=== PATIENT | male | born 1940 | race Caucasian/White ===

== ENCOUNTER 2023-05-25 10:58 | Outpatient (OUT) | payer MEDICARE, BC, SELFPAY ==
[2023-05-25 11:29] LABS: Basophils Percent Auto 0.3 % (0.2-2.0); Eosinophils Absolute Auto 0.1 10^3/uL (0.0-0.7); Eosinophils Percent Auto 1.2 % (0.9-7.0); Hematocrit 40.2 % (42.0-54.0); Hemoglobin 13.9 g/dL (14.0-18.0); Immature Granulocytes Abs Auto 0.02 10^3/uL (0.00-0.03); Immature Granulocytes Pct Auto 0.3 % (0.0-0.5); Lymphocytes Absolute Auto 0.8 10^3/uL (1.2-3.8); Lymphocytes Percent Auto 12.2 % (20.5-60.0); Mean Corpuscular HGB Conc 34.6 g/dL (29.9-35.2); Mean Corpuscular Hemoglobin 34.8 pg (25.9-34.0); Mean Corpuscular Volume 100.8 fL (80.0-94.0); Mean Platelet Volume 9.8 fL (9.5-13.5); Monocytes Absolute Auto 0.6 10^3/uL (0.3-0.8); Neutrophils Absolute Auto 4.9 10^3/uL (1.4-6.5); Platelet Count 207 10^3/uL (150-450); Red Blood Count 3.99 10^6/uL (4.70-6.10); Red Cell Distribution Width 12.6 % (11.0-15.0); White Blood Count 6.4 10^3/uL (4.0-11.0)
[2023-05-25 12:24] LABS: Alanine Aminotransferase 28 U/L (16-63); Albumin Globulin Ratio 1.1; Albumin Level 3.7 g/dL (3.4-5.0); Alkaline Phosphatase 66 U/L (46-116); Anion Gap 11.9; Aspartate Amino Transferase 16 U/L (15-37); BUN Creatinine Ratio 11.2; Calcium 8.7 mg/dL (8.5-10.1); Carbon Dioxide 26.3 mmol/L (21.0-32.0); Chloride 106 mmol/L (98-107); Estimated GFR (African America >60 (>=60); Estimated GFR (Non-African Ame 56 (>=60); Globulin 3.3 g/dL; Glucose 95 mg/dL (74-106); Potassium 4.2 mmol/L (3.5-5.1); Sodium 140 mmol/L (136-145); Thyroid Stimulating Hormone 1.054 uIU/mL (0.358-3.740)
== END 2023-05-25 10:59 | disposition home or self-care (01) ==
PROVIDERS: Family Provider Internal Medicine
DX: I10 Essential (primary) hypertension (principal); E53.8 Deficiency of other specified B group vitamins; R79.89 Other specified abnormal findings of blood chemistry
CPT/HCPCS: 36415; 80053; 82306; 82607; 84443; 85025

== ENCOUNTER 2023-11-24 11:17 | Outpatient (OUT) | payer MEDICARE, BC, SELFPAY ==
[2023-11-24 12:24] LABS: Basophils Percent Auto 0.3 % (0.2-2.0); Eosinophils Absolute Auto 0.1 10^3/uL (0.0-0.7); Eosinophils Percent Auto 0.8 % (0.9-7.0); Hematocrit 38.6 % (42.0-54.0); Hemoglobin 13.1 g/dL (14.0-18.0); Immature Granulocytes Abs Auto 0.03 10^3/uL (0.00-0.03); Immature Granulocytes Pct Auto 0.5 % (0.0-0.5); Lymphocytes Absolute Auto 0.8 10^3/uL (1.2-3.8); Lymphocytes Percent Auto 12.1 % (20.5-60.0); Mean Corpuscular HGB Conc 33.9 g/dL (29.9-35.2); Mean Corpuscular Hemoglobin 35.5 pg (25.9-34.0); Mean Corpuscular Volume 104.6 fL (80.0-94.0); Mean Platelet Volume 10.3 fL (9.5-13.5); Monocytes Absolute Auto 0.7 10^3/uL (0.3-0.8); Monocytes Percent Auto 10.3 % (1.7-12.0); Platelet Count 201 10^3/uL (150-450); Red Blood Count 3.69 10^6/uL (4.70-6.10); Red Cell Distribution Width 12.1 % (11.0-15.0); White Blood Count 6.6 10^3/uL (4.0-11.0)
[2023-11-24 12:41] LABS: Alanine Aminotransferase 29 U/L (16-63); Albumin Globulin Ratio 1.1; Albumin Level 3.7 g/dL (3.4-5.0); Alkaline Phosphatase 65 U/L (46-116); Anion Gap 12.2; Aspartate Amino Transferase 22 U/L (15-37); BUN Creatinine Ratio 14.8; Bilirubin Total 1.2 mg/dL (0.2-1.0); Calcium 8.9 mg/dL (8.5-10.1); Chloride 104 mmol/L (98-107); Chol HDL Ratio 2.2; Cholesterol 148 mg/dL (<=200); Estimated GFR (African America >60 (>=60); Estimated GFR (Non-African Ame 54 (>=60); Globulin 3.3 g/dL; Glucose 85 mg/dL (74-106); HDL Cholesterol 66 mg/dL (40-60); Potassium 4.2 mmol/L (3.5-5.1); Sodium 141 mmol/L (136-145); Triglycerides 124 mg/dL (<=150); VLDL CHOLESTEROL 24.8 mg/dL
[2023-11-24 13:27] LABS: Creatinine Urine Random 191.88 mg/dL (20.00-300.00); Microalbumin Urine Random <1.3 mg/dL (<=30.0)
== END 2023-11-24 11:18 | disposition home or self-care (01) ==
LOC: LAB 11:19
PROVIDERS: Family Provider Internal Medicine; PCP Internal Medicine
DX: R79.89 Other specified abnormal findings of blood chemistry (principal); I10 Essential (primary) hypertension
CPT/HCPCS: 36415; 80053; 80061; 82043; 82570; 82607; 85025

== ENCOUNTER 2024-05-11 19:35 | Emergency (ER) | payer MEDICARE, BC, SELFPAY ==
[2024-05-11 19:40] VITALS: BP 180/82; PULSE 68; TEMP 36.4; O2SAT 98; BMI 27.8
--- OUTSIDE RECORDS SUMMARY | 2024-05-11 19:41 | XMS_ITS | CCD ---
Author Organization [facility] Care Team Providers Care Varsity Baseball Coach Name Role Phone Unavailable Unavailable None, No PCP Unavailable Unavailable Cherie Ardon Unavailable DO Cherie Ardon Primary Care Provider [phone] MD Koby Mcclain Attending Provider MD Koby Mcclain Attending Provider DO Eloise Vance Primary Care Provider [phone] KYE, DR NAVAS Consulting Unavailable VASXUAN, DR NAVAS Attending Unavailable BRISTOL, DR CRESPO Primary Care Unavailable VASCHAArely, DR NAVAS Admitting Unavailable VASCHAArely, DR NAVAS Admitting Unavailable VASXUAN, DR NAVAS Consulting Unavailable VASXUAN, DR NAVAS Attending Unavailable REVA, DR CRESPO Primary Care Unavailable REVA, DR CRESPO Consulting Unavailable BRISTOL, DR CRESPO Attending Unavailable BRISTOL, DR CRESPO Admitting Unavailable REVA, DR CRESPO Primary Care Unavailable Eloise Vance Unavailable MD Koby Mcclain Attending Provider DO Eloise Vance Primary Care Provider DO Eloise Vance Primary Care Provider MD Koby Mcclain Attending Provider DO Jaqueline Ponce Attending Provider ELOISE VANCE Primary Care Unavailab kennedi Mcclain II, Dr. Koby Saunders Attending Unavailable ELOISE VANCE Primary Care Unavailab kennedi Mcclain II, Dr. Koby Saunders Referring Unavailable Connoruineliezer ORTIZ, Dr. Koby Saunders Attending Unavailable Connoruineliezer II, Dr. Koby Saunders Attending Unavailable Connoruineliezer II, Dr. Koby Saunders Referring Unavailable Vaschak, Dr. Eloise Pedroza [facility] Unava ilable McGuinn II, Dr. Koby Saunders Attending Unavailable McGuinn II, Dr. Koby Saunders Referring Unavailable Vaschak, Dr. Eloise Pedroza [facility] Unava ilable Reva, Dr. Cherie Cheng Primary Care Unavailable Vaschak, Dr. Eloise Perdoza [facility] Unava ilable Kris, Dr. Koby Almaguer Attending Unava ilable Vaschak, Dr. Eloise Pedroza Primary Care Unava ilable Kris, Dr. Koby Almaguer Attending Unava ilable Kris, Dr. Koby Almaguer Referring Unava ilable Vaschak, Dr. Eloise Pedroza [facility] Unava ilable Kris, Dr. Koby Almaguer Attending Unava ilable Vaschak, Dr. Eloise Pedroza [facility] Unava ilable Vaschak, Dr. Eloise Pedroza [facility] Unava ilable Reva, Dr. Cherie Cheng [facility] Unavailable McGuinn II, Dr. Koby Saunders Attending Unavailable McGuinn II, Dr. Koby Saunders Referring Unavailable Vaschak, Dr. Eloise Pedroza [facility] Unava ilable Jules Gallo Unavailable MD Koby Mcclain Attending Provider DO Eloise Vance Primary Care Provider MD Jules Gallo Attending Provider DO Eloise Vance Primary Care Provider [phone] MD Koby Mcclain Attending Provider Jules Gallo Unavailable Eloise Vance DO Primary Care Provider DO Eloise Vance Primary Care Provider [phone] MD Koby Mcclain Attending Provider Jules Gallo MD Unavailable ELOISE VANCE Attending Unavailable ELOISE VANCE Referring Unavailable TITO WHEATLEY Attending Unavailable JOSE ANGEL MARTINEZ Attending Unavailable Koby Mcclain Admitting Unavail able Eloise Vance Primary Care Unavailable Koby Mcclain Attending Unavail able Eloise Vance Primary Care Unavailable Koby Mcclain Admitting Unavail able Koby Mcclain Attending Unavail able Eloise Vance Primary Care Unavailable ConnorKoby denney Admitting Unavail able Koby Mcclain Attending Unavail able FloriEloise govea Primary Care Unavailable Jules Gallo Admitting Unavailable Jules Gallo Attending Unavailable Koby Mcclain Attending Unavail able Eloise Vance Primary Care Unavailable ConnorKoby denney Admitting Unavail able KOBY MCCLAIN Attending Unavailable ELOISE VANCE [facility] Unavailab le KOBY MCCLAIN Attending Unavailable KOBY MCCLAIN Referring Unavailable ELOISE VANCE [facility] Unavailab CARSON Galeana Referring Unavailable BJ, DEVAUGHN Referring Unavailable CARSON MONROE Attending Unavailable BJ, DEVAUGHN Referring Unavailable SHERON WORTHY Attending Unavailable ZULEIKA, CARLOS Referring Unavailable BERNA AVILA Attending Unavailable BJ, DEVAUGHN Referring Unavailable PARKCARLOS Attending Unavailable BJ, DEVAUGHN Attending Unavailable Allergies Allergy Classification Reported Allergen(s) Allergy Type Date of Onset Reaction(s) Facility (20 sources) Clarithromycin; Translations: [clarithromycin] Drug Allergy 3 GI [facility] (20 sources) Erythromycin; Translations: [erythromycin] Drug Allergy 3 GI [facility] (11 sources) erythromycin base; Translations: [Erythromycin Base] Propensity to adverse reactions 0 Vomiting/Nausea [facility] Medications Current Medications Medication Drug Class(es) Dates Sig (Normalized) Sig (Original) aspirin 81 mg chewable tablet (20 sources) Platelet Aggregation Inhibitor, Nonsteroidal Anti-inflammatory Drug Start: 12-08-2022 take 1 tablet by mouth once daily Aspirin (Aspirin Childrens) 81 mg tablet,chewable Active 81 MG PO Daily December 07, 2022 11:00pm Start: 11-04-2019 take 81 mg by mouth once daily Aspirin Active 81 MG PO Daily 0 November 04, 2019 10:22am Start: 11-04-2019 End: 12-03-2022 take 81 mg by mouth once daily Aspirin Discontinued 81 MG PO Daily November 04, 2019 12:00am December 03, 2022 1:55pm Aspirin EC 81 MG TBEC TAKE 1 TABLET DAILY. Quantity: 90 Refills: 3 Ordered: 12-Jan-2023 DO Active cholecalciferol 0.025 mg oral capsule (20 sources) Vitamin D Start: 11-01-2019 Cholecalcifero l, Vitamin D3, 25 mcg (1,000 unit) cap Cholecalciferol (Vitamin D3) (Vitamin D3) 25 mcg (1,000 unit) Capsule Active 1000 UNIT PO Twice daily November 01, 2019 12:00am 0 11/01/2019 Active take 1 capsule by wa uth every twenty-four hours Vitamin D3 1000 UNIT 1 capsule Orally Once a day Active take 2 tablets by mouth once alana ly Vitamin D3 25 MCG (1000 UT) Oral Tablet TAKE 2 TABLET Daily Quantity: 0 Refills: 0 Ordered: 02-Dec-2022 DO Active Comment on above: Cholecalciferol (Vit james D3) (Vitamin D3) 25 mcg (1,000 unit) Capsule Active 1000 UNIT PO Twice daily November 01, 2019 12:00am chondroitin sulfates 333 mg / glucosamine hydrochloride 400 mg / methylsulfonylmethane 200 mg oral tablet (6 sources) Start: 2022 take 1 tablet by mouth once daily Glucosamine Ink-Btb-Luczfpdtk n Active 1 TAB PO Daily February 05, 2023 11:00pm give with meal/snack citalopram 20 mg oral tablet (20 sources) Serotonin Reuptake Inhibitor Start: 2018 citalopram (CELEXA) 20 mg tablet Take 20 mg by mouth. 0 10/08/2018 Active Comment on above: Take 20 mg by mouth. clopidogrel 75 mg oral tablet (20 sources) P2Y12 Platelet Inhibitor Start: 2018 End: 2024 clopidogrel (PLAVIX) 75 mg tablet Take 75 mg by mouth. 0 10/08/2018 Active Comment on above: Take 75 mg by mouth. Co Q 10 (2 sources) Co Q 10 Active Co Q 10 100 MG (1 source) take 1 capsule by mouth twice daily Co Q 10 100 MG 1 capsule Orally twice a day Active famotidine 40 mg oral tablet (20 sources) Histamine-2 Receptor Antagonist Start: 2021 famotidine (PEPCID) 40 mg tablet Take 40 mg by mouth. 0 03/27/2023 Active Start: 11-01-2019 End: 12-03-2022 take 1 tablet by mouth twice daily before mealtime Famotidine (Pepcid Ac) 10 mg Tablet Discontinued 10 MG PO Twice daily November 01, 2019 12:00am December 03, 2022 1:53pm Comment on above: Take 40 mg by mouth. iv contrast (will be provided with radiology test) (1 source) Start: 04-30-2024 End: 05-01-2024 iv contrast (will be provided with radiology test) MRI PANC/TAMARA Inject, intravenously, once for 1 dose. No IV access, insert saline lock prior to the beginning of sedation, infusion, injection of imaging exam. Discontinue saline lock post exam. If Pt. has a central line or IVAD, may access for administration according to line specific nursing protocol. Once exam is complete flush line and de-access according to line specific nursing protocol in the MR contrast administration guidelines link. 1 Each 0 04/30/2024 05/01/2024 Active Low-Dose Aspirin (3 sources) Low-Dose Aspirin Active LOW-DOSE ASPIRIN ORAL (7 sources) LOW-DOSE ASPIRIN ORAL Low-Dose Aspirin Active 0 Active Comment on above: Low-Dose Aspirin Act fuad lutein 20 mg oral capsule (20 sources) Start: 11-01-2019 take 1 capsule by mouth twice daily lutein 20 mg cap Take 1 capsule by mouth two times a day. 0 11/01/2019 Active Start: 11-01-2019 take 20 mg by mouth twice kristopher y Lutein Active 20 MG PO Twice daily November 01, 2019 12:00am Start: 11-01-2019 take 40 mg by mouth twice kristopher y Lutein Active 40 MG PO Twice daily November 01, 2019 10:18am take 1 capsule by [facility] once daily Lutein 40 MG 1 capsule with a meal Orally Once a day Active Comment on above: Take 1 capsule by [facility] two times a day. Multivitamin preparation (9 sources) Start: 0 take 1 tablet by mouth once daily in the morning Multivitamin Active 1 TAB PO Every morning November 01, 2019 10:18am Start: 11-01-2019 take 1 tablet by nick th once daily in the morning Multivitamin Active 1 TAB PO Every morning November 01, 2019 1:00am Start: 11-01-2019 take 1 tablet by nick th once daily in the morning Multivitamin Active 1 TAB PO Every morning November 01, 2019 12:00am Multivitamins (3 sources) Multivitamins Or ally Active nitroglycerin 0.4 mg sublingual tablet (20 sources) Nitrate Vasodilator Start: 10-08-2018 nitroglycerin sublingual (NITROQUICK) 0.4 mg SL tablet Dissolve 0.4 mg under the tongue. 0 10/08/2018 Active Nitroglycerin 0. 4 MG Sublingual Active Comment on above: Dissolve 0.4 mg unde r the tongue. omeprazole 20 mg delayed release oral capsule (1 source) Proton Pump Inhibitor Start: take 1 capsule by mouth once daily Omeprazole 20 MG 1 capsule 30 minutes before morning meal Orally Once a day for 30 days PLEASE CHECK ALLERGIES Sep, Active pedi multivit no.12 w-fluoride (MULTIVITAMINS-FLUOR NELSON-FOLIC A ORAL) (7 sources) pedi multivit no .12 w-fluoride (MULTIVITAMINS-FLUORID E-FOLIC A ORAL) Take by mouth. 0 Active Comment on above: Take by mouth. psyllium 3400 mg powder for oral suspension (11 sources) Start: 3 Psyllium Husk (Metamucil) 3.4 gram/5.4 gram Powder Active 1 TBSP PO Daily August 04, 2023 12:00am mix into at least 8 oz of water or juice before administering psyllium husk (M ETAMUCIL) 3.4 gram/5.4 gram powd Take 1 1e11 Vector Genomes by mouth. 0 Active Metamucil Active Comment on above: Take 1 1e11 Vector G enomes by mouth. 12 hr ranolazine 1000 mg extended release oral tablet (18 sources) Anti-anginal Start: 10-02-2023 End: 10-01-2024 take 1 tablet by mouth twice daily ranolazine (Ranexa) 1,000 mg 12 hr tablet Indications: ASCVD (arteriosclerotic cardiovascular disease) , Primary hypertension , SSS (sick sinus syndrome) (CMS/HCC) Take 1 tablet (1,000 mg) by mouth 2 times a day. Do not crush, chew, or split. 60 tablet 10/02/2023 10/01/2024 Active Start: 06-13-2023 End: 10-02-2023 take 500 mg by mouth twice daily Ranolazine Active 500 MG PO Twice daily August 04, 2023 12:00am Start: 06-19-2023 ranolazine ER (RANEXA) 500 mg 12 hr tablet Take 1,000 mg by mouth every 12 hours. 0 03/16/2023 Active Start: 03-16-2023 End: 10-02-2023 take 1 tablet by mouth every twelve hours ranolazine (Ranexa) 500 mg 12 hr tablet Indications: ASCVD (arteriosclerotic cardiovascular disease) , SSS (sick sinus syndrome) (CMS/HCC) TAKE 1 TABLET BY MOUTH EVERY 12 HOURS 180 tablet 3 08/11/2023 10/02/2023 Discontinued (Dose adjustment) Comment on above: Take 500 mg by mouth every 12 hours. Take 1,000 mg by nick th every 12 hours. rosuvastatin calcium 40 mg oral tablet (20 sources) HMG-CoA Reductase Inhibitor Start: 3 End: take 40 mg by mouth once daily at bedtime Rosuvastatin Active 40 MG PO Daily at bedtime December 03, 2022 12:00am Start: 10-08-2018 End: 12-03-2022 take 1 tablet by mouth once daily Rosuvastatin (Crestor) 10 mg tablet Discontinued 10 MG PO Daily November 04, 2019 12:00am December 03, 2022 1:52pm Comment on above: Take 40 mg by mouth. ubidecarenone 10 mg oral capsule (10 sources) ubidecarenone Q- 10 (CO Q-10) 10 mg cap Co Q 10 Active 0 Active take 1 capsule by mouth twice da bo Co Q 10 100 MG Oral Capsule TAKE 1 CAPSULE TWICE DAILY. Quantity: 0 Refills: 0 Ordered: 09-Sep-2021 DO Active Comment on above: Co Q 10 Active ubidecarenone 100 mg / vitamin e 5 unt oral capsule (9 sources) take 1 capsule by mouth twice daily coenzyme L10-pxcgeav E 100-5 mg-unit capsule Take 1 capsule by mouth 2 times a day. 0 Active Completed/Discontinued Medications Medication Drug Class(es) Dates Sig (Normalized) Sig (Original) clindamycin 300 mg oral capsule (9 sources) Lincosamide Antibacterial Start: 10-08-2018 End: 10-10-2018 take 600 mg by mouth three times daily Clindamycin Hcl Discontinued 600 MG PO Three times daily 12 October 08, 2018 12:00am October 10, 2018 12:02am gemfibrozil 600 mg oral tablet (9 sources) Peroxisome Proliferator Receptor alpha Agonist Start: 10-08-2018 End: 12-03-2022 take 600 mg by mouth once daily Gemfibrozil Discontinued 600 MG PO Daily October 08, 2018 12:00am December 03, 2022 1:57pm Tdeeflhi-Rnovr-Kbq 6-N-Nbmd-Bor (Glucosamine-Chond -Msm Complex) 346-984-97-0.5 mg Tablet (7 sources) Start: 12-03-2022 End: 12-08-2022 take 375-500 tablets by mouth once daily Pwugdakr-Jcvnp-Fre 2-H-Bfqx-Bor (Glucosamine-Chond -Msm Complex) 460-020-73-0.5 mg Tablet Discontinued 1 TAB PO Daily December 03, 2022 12:00am December 08, 2022 7:10am Start: 12-03-2022 End: 12-08-2022 take 375-500 tablets by mouth once daily Sbbmadig-Cssaf-Szn9-C-Bear-Bor (Erlzpydgouq-Kcrfj-Uxq Complex) 559-329-88-0.5 mg Tablet Discontinued 1 TAB PO Daily December 03, 2022 1:00am December 08, 2022 8:10am Bbdjsjcc-Ivp-Dkymns-Vit C-Hy al (Imxhupreurt-Pcgmnzmnznx-Yhr) 536-076-556-10 mg Tablet (6 sources) Start: 02-06-2023 End: 02-06-2023 take 1 tablet by mouth once daily Hhdurfcv-Jyo-Hejkxo-Vit C-Hyal (Asbqkeqooym-Wgkycilufxp-Ram) 319-353-029-10 mg Tablet Discontinued 1 TAB PO Daily February 05, 2023 11:00pm February 06, 2023 12:58pm Start: 02-06-2023 End: 02-06-2023 take 1 tablet by mouth once daily Izfthyph-Egn-Puwxoa-Vit C-Hyal (Mnobrnrgxfk-Mgcmarsmmhd-Ggx) 555-704-542-10 mg Tablet Discontinued 1 TAB PO Daily February 06, 2023 12:00am February 06, 2023 1:58pm glucosamine sulfate 750 mg o ral tablet (20 sources) Start: 12-08-2022 End: 02-06-2023 Glucosamine Sulfate Disconti nued 1500 MG PO As Directed December 07, 2022 11:00pm February 06, 2023 12:58pm administer with a meal Glucosamine HCl 1,500 mg tab Take 1 tablet by mouth. 0 Active Glucosamine Acti ve Glucosamine HCl - 1500 MG Oral Tablet TAKE DIRECTED. Quantity: 0 Refills: 0 Ordered: 09-Sep-2021 DO Active Comment on above: Take 1 tablet by nick th. glucosamine sulfate 500 mg / methylsulfonylmethane 400 mg oral capsule (9 sources) Start: 11-01-19 End: 12-09-19 take 1 capsule by mouth once daily Glucosamine Sulfate-Msm Discontinued 1 CAP PO Daily November 01, 2019 12:00am December 08, 2022 7:10am Gzuvpzbexpc-Qkv-Ydttsfwdl-Vi t c (Glucosamine Complex-Msm) Capsule (9 sources) Start: 11-01-19 End: 11-01-19 Npbkzafiuud-Qmx-Xuv nesium-Vitc (Glucosamine Complex-Msm) Capsule Discontinued November 01, 2019 10:18am November 01, 2019 10:22am Start: 11-01-2019 End: 11-01-2019 Jlxszeezdhb-Mlz-Fnhbzfnsw-Vi tc (Glucosamine Complex-Msm) Capsule Discontinued November 01, 2019 1:00am November 01, 2019 10:22am Start: 11-01-2019 End: 11-01-2019 Criejdfvbro-Gle-Csmkqohli-Vi tc (Glucosamine Complex-Msm) Capsule Discontinued November 01, 2019 12:00am November 01, 2019 9:22am 24 hr isosorbide mononitrate 30 mg extended release oral tablet (18 sources) Nitrate Vasodilator Start: 11-01-2019 End: 12-03-2022 Isosorbide Mononitrate Discontinued 30 MG PO .prn 0 November 04, 2019 10:01am December 03, 2022 1:57pm take as needed for angina 24 hr metoprolol succinate 25 mg extended release oral tablet (9 sources) beta-Adrenergic Jerald Start: 10-08-2018 End: 12-03-2022 take 25 mg by mouth once daily Metoprolol Succinate Discontinued 25 MG PO Daily October 08, 2018 12:00am December 03, 2022 1:51pm MSM 1500 MG Oral Tablet (3 sources) take 1 tablet by mouth once MSM 1500 MG Oral Tablet TAKE DIRECTED PER PACKAGE INSTRUCTIONS. Quantity: 0 Refills: 0 Ordered: 09-Sep-2021 DO Active MSM 1500 MG TABS (8 sources) MSM 1500 MG TABS TAKE DIRECTED PER PACKAGE INSTRUCTIONS. Quantity: 0 Refills: 0 Ordered: 09-Sep-2021 DO Active vitamin b12 1 mg oral tablet (17 sources) Vitamin B12 Start: 11-01-2019 End: 08-04-2023 take 1 tablet by mouth once daily Cyanocobalamin (Vitamin B-12) (Vitamin B-12) 1,000 mcg Tablet Discontinued 1000 MCG PO Daily November 01, 2019 12:00am August 04, 2023 12:25pm take 1 tablet by mouth once kristopher y Vitamin B12 1000 MCG Oral Tablet Extended Release TAKE 1 TABLET DAILY DIRECTED. Quantity: 0 Refills: 0 Ordered: 02-Dec-2022 DO Active Problems Active Problems Problem Classification Problem Date Documented Da te Episodic/Chronic Abdominal pain (3 sources) Abdominal pain; Translations: [Unspecified abdominal pain] Episodic Cardiac dysrhythmias (20 sources) Sick sinus syndrome; Translations: [Sinoatrial node dysfunction] Onset: 3 11-04-2019 Chronic Conditions associated with dizziness or vertigo (15 sources) Dizziness; Translations: [Dizziness and giddiness] Onset: 3 08-11-2023 Episodic Conduction disorders (20 sources) Cardiac pacemaker in situ; Translations: [Cardiac pacemaker in situ] Onset: 3 11-04-2019 Chronic Coronary atherosclerosis and other heart disease (20 sources) Arteriosclerotic vascular disease; Translations: [Cardiovascular disease, unspecified] Onset: 2 11-04-2019 Chronic Coronary atherosclerosis and other heart disease (9 sources) Patient post percutaneous transluminal coronary angioplasty; Translations: [Coronary angioplasty status] 11-04-2019 Episodic Disorders of lipid metabolism (20 sources) Hyperlipidemia; Translations: [Other and unspecified hyperlipidemia] Onset: 2 11-04-2019 Chronic Esophageal disorders (6 sources) Gastroesophageal reflux disease; Translations: [Gastro-esophageal reflux disease without esophagitis] Chronic Esophageal disorders (1 source) Esophageal disorders; Translations: [Gastro-esophageal reflux disease without esophagitis] Onset: 3 Essential hypertension (20 sources) Hypertensive disorder; Translations: [Unspecified essential hypertension] Onset: 2 Chronic Hemorrhoids (3 sources) Hemorrhoids; Translations: [Other hemorrhoids] Episodic Other and unspecified benign neoplasm (3 sources) Benign neoplasm of duodenum; 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] Onset: 4 Episodic Other and unspecified benign neoplasm (2 sources) Adenoma of duodenum; Translations: [Benign neoplasm of duodenum] 12-08-2023 Episodic Other and unspecified benign neoplasm (1 source) Polyp of duodenum; Translations: [Benign neoplasm of duodenum] 04-26-2024 Episodic Other gastrointestinal disorders (3 sources) Diarrhea; Translations: [Diarrhea, unspecified] Episodic Other lower respiratory disease (14 sources) Dyspnea on exertion; Translations: [Other respiratory abnormalities] Onset: 3 08-11-2023 Episodic Other nutritional; endocrine; and metabolic disorders (1 source) Overweight; Translations: [Overweight] Episodic Other nutritional; endocrine; and metabolic disorders (1 source) Body mass index 25-29 - overweight; Translations: [Body Mass Index 28.0-28.9, adult] Episodic Other nutritional; endocrine; and metabolic disorders (11 sources) Overweight in adulthood with body mass index of 25 or more but less than 30; Translations: [Overweight] Episodic Other nutritional; endocrine; and metabolic disorders (1 source) Abnormal weight loss Episodic Other nutritional; endocrine; and metabolic disorders (2 sources) Body mass index (BMI) 28.0-28.9, adult; Translations: [Body mass index (BMI) 28.0-28.9, adult] Onset: 4 Episodic Other screening for suspected conditions (not mental disorders or infectious disease) (11 sources) Electrocardiogram abnormal; Translations: [Nonspecific abnormal electrocardiogram [ECG] [EKG]] Onset: 3 04-30-2024 Episodic Screening and history of mental health and substance abuse codes (13 sources) Ex-smoker; Translations: [Personal history of tobacco use] Onset: 4 Episodic Comment on above: quit 1967; Unclassified (1 source) Encounter for checking and testing of cardiac pacemaker pulse generator [battery]; Translations: [Encounter for checking and testing of cardiac pacemaker pulse generator [battery]] Onset: 4 Past or Other Problems Problem Classification Problem Date Documented Da te Episodic/Chronic Deficiency and other anemia (1 source) Anemia, unspecified; Translations: [ANEMIA UNSPECIFIED] Onset: 10-31-2021 Episodic Nutritional deficiencies (1 source) Deficiency of other specified B group vitamins; Translations: [DEFICIENCY SPEC B GROUP VITAMINS] Onset: 05-04-2022 Episodic Other non-traumatic joint disorders (1 source) Pain in right knee; Translations: [PAIN IN RIGHT KNEE] Onset: 10-31-2021 Episodic Unclassified (1 source) Onset: 10-02-2023 10-02-2023 Results Test Name Value Interpretation Reference Range Facility ANES POSTPROC EVALon 024 ANES POSTPROC EVAL HNO ID: [id number] Author: JAZMÍN ZENG MD Service: ? Author Type: Anesthesiologist Type: Anesthesia Postprocedure Evaluation Filed: 04/26/2024 08:51 Note Text: POST ANESTHESIA EVALUATION NOTE : 1940 Procedure Summary Date: 04/26/24 Room / Location: Gastroenterology Anesthesia Start: 758 Anesthesia Stop: 824 Procedure: EGD - THERAPEUTIC, EUS, OR TUBE INTERVENTIONS Diagnosis: Adenomatous duodenal polyp (Surveillance procedure) Scheduled Providers: Devaughn Farias MD; Jazmín Zeng MD; Sheron Worthy APRN.[employer] Responsible Provider: Jazmín Zeng MD Anesthesia Type: general ASA Status: 3 Anesthesia Type: general Airway Type: supplemental O2 Last Vitals Vitals Value Taken Time BP 152/67 04/26/24 0840 Temp 36 ?C (96.8 ?F) 04/26/24 0825 Pulse 60 04/26/24 0850 Resp 16 04/26/24 0825 SpO2 96 % 04/26/24 0850 Post Anesthesia Patient Status Patient Evaluation: PACU. PACU/ICU Patient Condition: stable. Anticipated Disposition: phase 2 then home. Neurological Status: aware and responsive. Pulmonary Status: breathing comfortably on supplemental oxygen Airway Control: returned to baseline unsupported. Cardiovascular Status: stable. Pain Management: clinically adequate - multimodal analgesia pain management approach Postoperative Hydration: acceptable. Intraoperative Events: no significant anesthesia events Post Operative Nausea/Vomiting Status: no significant post operative nausea or vomiting Recommendation: continue current plan of care. Anesthesia Observations No Documentation SIGNATURE: Jazmín Zeng MD PATIENT NAME: Alexandria Dodson DATE: April 26, 2024 TIME: 8:50 AM CSN: [id number] Normal [facility] ANES PRE-OPon 04-26-2024 ANES PRE-OP HNO ID: [id number] Author: JAZMÍN ZENG MD Service: ? Author Type: Anesthesiologist Type: Anesthesia Preprocedure Evaluation Filed: 04/26/2024 07:42 Note Text: ANESTHESIOLOGY DAY OF SURGERY NOTE : 1940 Procedure Information Date/Time: 04/26/24729 Scheduled providers: Devaughn Farias MD; Jazmín Zeng MD; Sheron Worthy APRN.[employer] Procedure: EGD - THERAPEUTIC, EUS, OR TUBE INTERVENTIONS Location: Gastroenterology Estimated body mass index is 28.12 kg/m? as calculated from the following: Height as of this encounter: 177.8 cm (5' 10 ). Weight as of this encounter: 88.9 kg (196 lb). Most recent hematocrit and potassium results: Hematocrit 38.1 11/30/2023 Potassium 4.6 11/30/2023 Relevant Problems No relevant active problems I - PHYSICAL EVALUATION AIRWAY Patient intubated: No. Tracheostomy tube not present Mallampati: II. TM distance: >3 FB. Neck ROM: full ROM without neurological symptoms. Mouth opening: adequate. Short neck: no. Thick neck: no II - ANESTHESIA PLAN ASA Score: 3 Anesthetic Plan: general Airway type: ETT NPO Status: adequate Beta Jerald Monitoring Plan Monitoring plan: standard ASA. Post Procedure Analgesic Plan Postoperative analgesic plan: multimodal analgesia. Informed Consent Anesthetic risks, benefits, alternatives, personnel and consent discussed: yes. Patient / Responsible Republican agrees to proceed: yes Patient / Surrogate agrees to blood products: Yes Significant changes in the patient condition since the History and Physical, not otherwise documented in primary service progress note: no. Potential Anesthesia issues that may suggest increased risk of complications or contraindication to planned procedure: other. Vitals Value Taken Time BP 189/87 04/26/24 0731 Pulse Resp 16 04/26/24725 Temp 36.1 ?C (97 ?F) 04/26/24 07 SpO2 98 % 04/26/24725 Outpatient Medications as of 04/26/2024 Medication Sig ubidecarenone Q-10 (CO Q-10) 10 mg cap Co Q 10 Active LOW-DOSE ASPIRIN ORAL Low-Dose Aspirin Active citalopram (CELEXA) 20 mg tablet Take 20 mg by mouth. clopidogrel (PLAVIX) 75 mg tablet Take 75 mg by mouth. nitroglycerin sublingual (NITROQUICK) 0.4 mg SL tablet Dissolve 0.4 mg under the tongue. lutein 20 mg cap Take 1 capsule by mouth two times a day. pedi multivit no.12 w-fluoride (FLMPQGARTBEUR-NOIGWKHK-HX LIC A ORAL) Take by mouth. Cholecalciferol, Vitamin D3, 25 mcg (1,000 unit) cap Cholecalciferol (Vitamin D3) (Vitamin D3) 25 mcg (1,000 unit) Capsule Active 1000 UNIT PO Twice daily November 01, 2019 12:00am famotidine (PEPCID) 40 mg tablet Take 40 mg by mouth. rosuvastatin (CRESTOR) 40 mg tablet Take 40 mg by mouth. ranolazine ER (RANEXA) 500 mg 12 hr tablet Take 1,000 mg by mouth every 12 hours. Glucosamine HCl 1,500 mg tab Take 1 tablet by mouth. psyllium husk (METAMUCIL) 3.4 gram/5.4 gram powd Take 1 1e11 Vector Genomes by mouth. No current facility-administered medications on file as of 04/26/2024. I have interviewed and examined the patient. I have reviewed the medical record and/or the pre-anesthesia evaluation, pertinent labs, and test results. This contains updated information obtained within 48 hours of Surgery/Procedure. SIGNATURE: Jazmín Zeng MD PATIENT NAME: Alexandria Dodson DATE: April 26, 2024 TIME: 7:41 AM CSN: [id number] [facility] CNOVon 04-26-2024 CNOV Office Visit (GENRYANNEA ) -- KANDYALEXANDRIA MURILLO ([id number]) 1940 M Date Time Provider Department 04/26/24 11:00 AM CARSON MONROE During your visit today, we recorded the following information about you: Temperature Pulse Respiration Blood pressure 97.7 degrees 60/minute 16/minute 151/62 Weight Height 88.5 kg 1.773 m Carson Monroe MD 04/30/2024 11:31 AM Signed HPB CONSULT HISTORY AND PHYSICAL HPI: This is a 83 year old male who presents with duodenal polyp. Patient with PMH of GERD, HTN, HLD, CAD s/p stents (most recent in 11/2022) on plavix, Emilio Bah syndrome s/p pacemaker (2006 and 2018) .The patient's doudenal polyp was diagnosed in 2022 after an episode of epigastric pain that led to an EGD at OSH the mass was then biopsied and the patient has been following with Dr. Farias ( GI). 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 He later underwent another surveillance EGD today showing polyp in stable size involving 3/4 of duodenum that could be removed Reports continued abdominal pain . With on and off discomfort in his epigastric area and reports this pain has been senior living. Reports constipation for the last 6 months. Reports 10 pound weight loss but that's related to stressors with putting his in a detention. Denies any personal history of Crohns but does have positive in sister and daughter Does have SOB after walking 100 yards. Previous Abdominal Surgeries: - Right inguinal hernia Cardiopulmonary Disease: See above Last Colonoscopy/EGD: Coloscopy in 2018 negative Anticoagulation/Antiplatel et: Plavix and ASA81 PAST MEDICAL HISTORY: PAST MEDICAL HISTORY Diagnosis Date Arthritis Congestive heart failure (HCC) Coronary artery disease Diabetes (HCC) Hypertension PAST SURGICAL HISTORY: PAST SURGICAL HISTORY Procedure Laterality Date BACK SURGERY HX EYE SURGERY HX HEART SURGERY HX HERNIA REPAIR HX FAMILY HISTORY: No family history on file. SOCIAL HISTORY: Social History Tobacco Use Smoking status: Former Packs/day: 1.00 Years: 4.00 Additional pack years: 0.00 Total pack years: 4.00 Types: Cigarettes Quit date: 1967 Years since quittin.6 Passive exposure: Current Smokeless tobacco: Never Vaping Use Vaping Use: Never used Substance Use Topics Alcohol use: Yes Comment: Occasional beer/[place] Drug use: Never MEDICATIONS: Prior to Admission Medications: ubidecarenone Q-10 (CO Q-10) 10 mg cap Co Q 10 Active LOW-DOSE ASPIRIN ORAL Low-Dose Aspirin Active citalopram (CELEXA) 20 mg tablet Take 20 mg by mouth. clopidogrel (PLAVIX) 75 mg tablet Take 75 mg by mouth. nitroglycerin sublingual (NITROQUICK) 0.4 mg SL tablet Dissolve 0.4 mg under the tongue. lutein 20 mg cap Take 1 capsule by mouth two times a day. pedi multivit no.12 w-fluoride (SUMINKNGOTAMT-OTLNDYFK-LM LIC A ORAL) Take by mouth. Cholecalciferol, Vitamin D3, 25 mcg (1,000 unit) cap Cholecalciferol (Vitamin D3) (Vitamin D3) 25 mcg (1,000 unit) Capsule Active 1000 UNIT PO Twice daily November 01, 2019 12:00am famotidine (PEPCID) 40 mg tablet Take 40 mg by mouth. rosuvastatin (CRESTOR) 40 mg tablet Take 40 mg by mouth. ranolazine ER (RANEXA) 500 mg 12 hr tablet Take 1,000 mg by mouth every 12 hours. Glucosamine HCl 1,500 mg tab Take 1 tablet by mouth. psyllium husk (METAMUCIL) 3.4 gram/5.4 gram powd Take 1 1e11 Vector Genomes by mouth. No current facility-administered medications for this visit. ALLERGIES: ALLERGIES Allergen Reactions Erythromycin GI Upset COMPLETE REVIEW OF SYSTEMS: PAIN ASSESSMENT: Negative for pain, history of chronic pain, or current treatment for a chronic pain condition. GENERAL: No weight loss, malaise or fevers HEENT: Negative for frequent or significant headaches, No changes in hearing or vision, no nose bleeds or other nasal problems NECK: Negative for lumps, goiter, pain and significant neck swelling RESPIRATORY: Negative for cough, wheezing or shortness of breath. CARDIOVASCULAR: Negative for chest pain, leg swelling or palpitations. GI: Negative for abdominal discomfort, blood in stools or black stools or change in bowel habits : No history of dysuria, frequency or incontinence AUTO BODY ESTIMATOR: Negative for abnormal vaginal bleeding, abnormal vaginal discharge MUSCULOSKELETAL: Negative for joint pain or swelling, back pain or muscle pain. PHYSICAL EXAM: There were no vitals taken for this visit. General: Well developed and well nourished appearance. No acute distress. Skin: No rash on chest, arms or legs. Warm, dry. Head/Eyes: Sclera clear, normal conjunctiva. EOMI. Mouth/Pharynx: Teeth: Fair dentition. No lesions. Neck: No JVD. Supple. Lungs: Normal respiratory effort. Clear lungs wi (more content not included)... Normal [facility] Nils 04-26-2024 [facility] Telephone (GENTIMMY) -- ALEXANDRIA DODSON ([id number]) 1940 M Date Time Provider Department 04/26/24 SUSAN FRITZ During your visit today, we recorded the following information about you: Susan Fritz LPN 04/26/2024 11:51 AM Signed Imaging request faxed to [facility] Fax: Allergies As of Date: 04/26/2024 Noted Allergy Reaction ERYTHROMYCIN 09/04/2023 8 - GI Upset Date Reviewed: 04/26/2024 Reviewed by: Antonina Joyce LPN - Fully Assessed Prescriptions as of 04/26/2024 - ubidecarenone Q-10 (CO Q-10) 10 mg cap Co Q 10 Active - LOW-DOSE ASPIRIN ORAL Low-Dose Aspirin Active - citalopram (CELEXA) 20 mg tablet Take 20 mg by mouth. - clopidogrel (PLAVIX) 75 mg tablet Take 75 mg by mouth. - nitroglycerin sublingual (NITROQUICK) 0.4 mg SL tablet Dissolve 0.4 mg under the tongue. - lutein 20 mg cap Take 1 capsule by mouth two times a day. - pedi multivit no.12 w-fluoride (RMBXZXQHLQMSL-ORBCHCFB-VG LIC A ORAL) Take by mouth. - Cholecalciferol, Vitamin D3, 25 mcg (1,000 unit) cap Cholecalciferol (Vitamin D3) (Vitamin D3) 25 mcg (1,000 unit) Capsule Active 1000 UNIT PO Twice daily November 01, 2019 12:00am - famotidine (PEPCID) 40 mg tablet Take 40 mg by mouth. - rosuvastatin (CRESTOR) 40 mg tablet Take 40 mg by mouth. - ranolazine ER (RANEXA) 500 mg 12 hr tablet Take 1,000 mg by mouth every 12 hours. - Glucosamine HCl 1,500 mg tab Take 1 tablet by mouth. - psyllium husk (METAMUCIL) 3.4 gram/5.4 gram powd Take 1 1e11 Vector Genomes by mouth. Problem List As Of Date: 04/26/2024 (None) Encounter Status:Closed by SUSAN FRITZ on 04/26/24 Normal [facility] EGD Study observation Narrat iveon 04-26-2024 [facility] Radiology Study observation (narrative) [facility] HISTORY PHYSICALon HISTORY PHYSICAL HNO ID: [id number] Author: CARSON MONROE MD Service: ? Author Type: Physician Type: H&P Filed: 04/30/2024 11:31 Note Text: HPB CONSULT HISTORY AND PHYSICAL HPI: This is a 83 year old male who presents with duodenal polyp. Patient with PMH of GERD, HTN, HLD, CAD s/p stents (most recent in 11/2022) on plavix, Emilio Bah syndrome s/p pacemaker (2006 and 2018) .The patient's doudenal polyp was diagnosed in 2022 after an episode of epigastric pain that led to an EGD at OSH the mass was then biopsied and the patient has been following with Dr. Farias ( GI). 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 He later underwent another surveillance EGD today showing polyp in stable size involving 3/4 of duodenum that could be removed Reports continued abdominal pain . With on and off discomfort in his epigastric area and reports this pain has been senior living. Reports constipation for the last 6 months. Reports 10 pound weight loss but that's related to stressors with putting his in a detention. Denies any personal history of Crohns but does have positive in sister and daughter Does have SOB after walking 100 yards. Previous Abdominal Surgeries: - Right inguinal hernia Cardiopulmonary Disease: See above Last Colonoscopy/EGD: Coloscopy in 2018 negative Anticoagulation/Antiplatel et: Plavix and ASA81 PAST MEDICAL HISTORY: PAST MEDICAL HISTORY Diagnosis Date Arthritis Congestive heart failure (HCC) Coronary artery disease Diabetes (HCC) Hypertension PAST SURGICAL HISTORY: PAST SURGICAL HISTORY Procedure Laterality Date BACK SURGERY HX EYE SURGERY HX HEART SURGERY HX HERNIA REPAIR HX FAMILY HISTORY: No family history on file. SOCIAL HISTORY: Social History Tobacco Use Smoking status: Former Packs/day: 1.00 Years: 4.00 Additional pack years: 0.00 Total pack years: 4.00 Types: Cigarettes Quit date: 1967 Years since quittin.6 Passive exposure: Current Smokeless tobacco: Never Vaping Use Vaping Use: Never used Substance Use Topics Alcohol use: Yes Comment: Occasional beer/[place] Drug use: Never MEDICATIONS: Prior to Admission Medications: ubidecarenone Q-10 (CO Q-10) 10 mg cap Co Q 10 Active LOW-DOSE ASPIRIN ORAL Low-Dose Aspirin Active citalopram (CELEXA) 20 mg tablet Take 20 mg by mouth. clopidogrel (PLAVIX) 75 mg tablet Take 75 mg by mouth. nitroglycerin sublingual (NITROQUICK) 0.4 mg SL tablet Dissolve 0.4 mg under the tongue. lutein 20 mg cap Take 1 capsule by mouth two times a day. pedi multivit no.12 w-fluoride (DAQHHCIGCHDBE-GKMXHYSM-PB LIC A ORAL) Take by mouth. Cholecalciferol, Vitamin D3, 25 mcg (1,000 unit) cap Cholecalciferol (Vitamin D3) (Vitamin D3) 25 mcg (1,000 unit) Capsule Active 1000 UNIT PO Twice daily November 01, 2019 12:00am famotidine (PEPCID) 40 mg tablet Take 40 mg by mouth. rosuvastatin (CRESTOR) 40 mg tablet Take 40 mg by mouth. ranolazine ER (RANEXA) 500 mg 12 hr tablet Take 1,000 mg by mouth every 12 hours. Glucosamine HCl 1,500 mg tab Take 1 tablet by mouth. psyllium husk (METAMUCIL) 3.4 gram/5.4 gram powd Take 1 1e11 Vector Genomes by mouth. No current facility-administered medications for this visit. ALLERGIES: ALLERGIES Allergen Reactions Erythromycin GI Upset COMPLETE REVIEW OF SYSTEMS: PAIN ASSESSMENT: Negative for pain, history of chronic pain, or current treatment for a chronic pain condition. GENERAL: No weight loss, malaise or fevers HEENT: Negative for frequent or significant headaches, No changes in hearing or vision, no nose bleeds or other nasal problems NECK: Negative for lumps, goiter, pain and significant neck swelling RESPIRATORY: Negative for cough, wheezing or shortness of breath. CARDIOVASCULAR: Negative for chest pain, leg swelling or palpitations. GI: Negative for abdominal discomfort, blood in stools or black stools or change in bowel habits : No history of dysuria, frequency or incontinence AUTO BODY ESTIMATOR: Negative for abnormal vaginal bleeding, abnormal vaginal discharge MUSCULOSKELETAL: Negative for joint pain or swelling, back pain or muscle pain. PHYSICAL EXAM: There were no vitals taken for this visit. General: Well developed and well nourished appearance. No acute distress. Skin: No rash on chest, arms or legs. Warm, dry. Head/Eyes: Sclera clear, normal conjunctiva. EOMI. Mouth/Pharynx: Teeth: Fair dentition. No lesions. Neck: No JVD. Supple. Lungs: Normal respiratory effort. Clear lungs without rhonchi, rales, wheezing. Breasts: Deferred Heart: Normal PMI. No lifts or thrills. Regular rate and rhythm. Normal S1, S2. No S3. No S4. No murmurs. No rubs. Peripheral Vascular/Arteries: Carotid pulse normal without bruit. No abdominal bruits. No femoral bruits or hematoma. DP/Radial pulses normal. Abdome (more content not included)... 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 Current history and physical on file: Yes Is a new History and Physical required for today's visit? No Indication for procedure: Other - duodenal PROCEDURE(S) SCHEDULED FOR: EGD (Esophagogastroduodenoscop y) with or without biopsies, removal of polyps or lesions, dilation ( any means), treatment of bleeding ( any means), Barrx treatment of Ebenezer's Esophagus, image tube placement or cryo therapy treatment based on clinical findings. BASELINE BEHAVIOR: Calm BASELINE ORIENTATION: A AND O x3 All medications and allergies reviewed: Yes Skin Assessment: Warm dry mucus membranes pink Airway/Respiratory Assessment: Airway: visualization of the uvula- Yes Mouth: opening greater than 2 fingerbreadths- Yes Neck: full range of motion- Yes Breath sounds clear/equal- Yes Cardiac Assessment: Regular rate and rhythm without murmur Abdominal Assessment: Abdomen soft, non-tender, no masses or organomegaly. Sedation Plan: MAC Additional Comments: None Lady Mandy Delaney MD [facility] NURSING PROGon 04-26-2024 NURSING PROG HNO ID: [id number] Author: WINNIE BRIAN RN Service: Gastroenterology Author Type: Registered Nurse Type: Nursing Progress Note Filed: 04/26/2024 08:32 Note Text: AMBULATORY PATIENT EDUCATION NOTE TOPIC: GI PROCEDURES: Esophagogastroduodenoscopy (EGD) with or without biopies based on clinical findings, removal of polyps or lesions READINESS TO LEARN INSTRUCTION PROVIDED TO: Patient and family member COGNITIVE ABILITY: Alert and oriented PTED MOTIVATION TO LEARN: Interested FAMILY SUPPORT: High - Very involved in pt care IPATIENT LEARNS BEST BY: Multiple Methods FACTORS AFFECTING LEARNING: None PHYSICAL LIMITATIONS AFFECTING LEARNING: None LEARNING RESPONSE METHOD OF INSTRUCTION: Individual instruction PATIENT / FAMILY RESPONSE: Verbalizes understanding of: WORSENING CONDITION-Signs and symptoms of a worsening condition that warrant a call to the physician FOLLOW-UP PLAN: Patient instructed to call with any further issues SUPPLEMENTAL MATERIAL: Procedure Discharge Instructions REFERRAL (RECOMMENDATION): None Electronically Signed By: Winnie Brian RN [facility] NURSING PROG HNO ID: [id number] Author: BETTY ARGUETA RN Service: ? Author Type: Registered Nurse Type: Nursing Progress Note Filed: 04/26/2024 07:28 Note Text: PRE OP LEARNING ASSESSMENT PROCEDURE/SURGERY: GI PROCEDURES: EGD READINESS TO LEARN COGNITIVE ABILITY: Alert and oriented MOTIVATION TO LEARN: Eager FAMILY SUPPORT: Unable to assess - Family not present PATIENT LEARNS BEST BY: Individual Instruction Verbal Instruction FACTORS AFFECTING LEARNING: None PHYSICAL LIMITATIONS AFFECTING LEARNING: None Electronically Signed By: Betty Argueta RN In Department: GASTROENTEROLOGY [facility] SURGICAL PATHOLOGYon 024 CASE REPORT Normal [facility] Comment on above: Order Comment: Speci men Type: TISSUE SPECIMENOrdering Facility: [facility] Address: [address] [place] [address] Result Comment: Surg [facility] Pathology Report Case: [id number] Authorizing Provider: Devaughn Farias MD Collected: 04/26/2024 08:08 AM Ordering Location: Gastroenterology Received: 04/26/2024 12:32 PM Pathologist: Valdo Emanuel MD Specimen: Small Bowel, Duodenum, Biopsy, duodenal polyp Performed By: #### S ####[facility] LABCLIA [id number] [place] [address] [place] FINAL DIAGNOSIS Normal [facility] Comment on above: Order Comment: Speci men Type: TISSUE SPECIMENOrdering Facility: [facility] Address: [address] [place] [address] Result Comment: A. D uodenum, polyp, biopsy: -Fragments of tubular adenoma with low-grade dysplasia. Performed By: #### S ####[facility] [id number] [address] [place] FINAL PERFORMING LAB Normal [facility] Comment on above: Order Comment: Speci men Type: TISSUE SPECIMENOrdering Facility: [facility] Address: [address] [place] [address] Result Comment: Diag nostic interpretation performed at [facility], [address] [place] [address] CLIA# [id number] Fourth Officer: Óscar Marquis M.D. Performed By: #### S ####[facility]CL[facility] [id number] [place] [address] [place] GROSS DESCRIPTION Normal [facility] Comment on above: Order Comment: Speci men Type: TISSUE SPECIMENOrdering Facility: [facility] Address: [address] [place] [address], [place] [address] Result Comment: A. S mall Bowel, Duodenum, Biopsy Received in formalin are multiple pieces of sullivan, soft tissue aggregating to 1.1 x 0.3 x 0.2 cm. Totally submitted in one cassette. Gross examination performed at [facility], [facility] [place] [address] AMS April 26, 2024 1:45 PM Performed By: #### S ####[facility]CL[facility] [id number] [id number] XR CHEST 2V FRONTAL/LATon XR CHEST 2V FRONTAL/LAT * * *Final Report* * * DATE OF EXAM: Apr 26 2024 10:57AM CAX [id number] - XR CHEST 2V FRONTAL/LAT / PROCEDURE REASON: Pacemaker * * * * Physician Interpretation * * * * EXAMINATION: CHEST RADIOGRAPH (2 VIEW FRONTAL and LATERAL) CLINICAL HISTORY: Pacemaker MQ: XC2_6 EXAM DATE/TIME: 04/26/2024 10:57 AM COMPARISON: No prior chest radiograph is available for comparison. RESULT: Lines, tubes, and devices: A dual-chamber pacemaker is seen with leads overlying the right atrium and right ventricle. Lungs and pleura: Are scribed normal lungs Cardiomediastinal silhouette: Normal cardiomediastinal silhouette. Bones and soft tissues: Degenerative changes are seen in the thoracic spine. IMPRESSION: Please see body of the report. Loan Servicing Specialist: KANIKA Transcribe Date/Time: Apr 26 2024 12:05P Dictated by : PEREZ AGUDELO MD This examination was interpreted and the report reviewed and electronically signed by: PEREZ AGUDELO MD on Apr 26 2024 12:06PM EST [id number] Normal [facility] XR Chest PA and Lateralon IMPRESSION: Please see body of the report. Loan Servicing Specialist: KANIKA Transcribe Date/Time: Apr 26 2024 12:05P Dictated by : PEREZ AGUDELO MD This examination was interpreted and the report reviewed and electronically signed by: PEREZ AGUDELO MD on Apr 26 2024 12:06PM EST DIVISION OF RADIOLOGY * * *Final Report* * * DATE OF EXAM: Apr 26 2024 10:57AM CAX 5291 - XR CHEST 2V FRONTAL/LAT / PROCEDURE REASON: Pacemaker * * * * Physician Interpretation * * * * EXAMINATION: CHEST RADIOGRAPH (2 VIEW FRONTAL & LATERAL) CLINICAL HISTORY: Pacemaker MQ: XC2_6 EXAM DATE/TIME: 04/26/2024 10:57 AM COMPARISON: No prior chest radiograph is available for comparison. RESULT: Lines, tubes, and devices: A dual-chamber pacemaker is seen with leads overlying the right atrium and right ventricle. Lungs and pleura: Are scribed normal lungs Cardiomediastinal silhouette: Normal cardiomediastinal silhouette. Bones and soft tissues: Degenerative changes are seen in the thoracic spine. DIVISION OF RADIOLOGY Provider, Sariah Hammond [facility] - 04/26/2024 * * *Final Report* * * DATE OF EXAM: Apr 26 2024 10:57AM CAX [id number] - XR CHEST 2V FRONTAL/LAT / PROCEDURE REASON: Pacemaker * * * * Physician Interpretation * * * * EXAMINATION: CHEST RADIOGRAPH (2 VIEW FRONTAL & LATERAL) CLINICAL HISTORY: Pacemaker MQ: XC2_6 EXAM DATE/TIME: 04/26/2024 10:57 AM COMPARISON: No prior chest radiograph is available for comparison. RESULT: Lines, tubes, and devices: A dual-chamber pacemaker is seen with leads overlying the right atrium and right ventricle. Lungs and pleura: Are scribed normal lungs Cardiomediastinal silhouette: Normal cardiomediastinal silhouette. Bones and soft tissues: Degenerative changes are seen in the thoracic spine. IMPRESSION IMPRESSION: Please see body of the report. Loan Servicing Specialist: PSCB Transcribe Date/Time: Apr 26 2024 12:05P Dictated by : PEREZ AGUDELO MD This examination was interpreted and the report reviewed and electronically signed by: PEREZ AGUDELO MD on Apr 26 2024 12:06PM EST [facility] Radiology Study observation (narrative) [facility] XR Chest PA and LateralOrder ed By: Ccf Provider on 04-26-2024 [facility] CNPYeimi 04-19-2024 CNPN Telephone (GASTPR) -- ALEXANDRIA DODSON ([id number]) 1940 M Date Time Provider Department 04/19/24 [facility] During your visit today, we recorded the following information about you: Candi Banda RN 04/19/2024 3:32 PM Signed Attempted to reach the patient at the contact number that they provided [phone] (home) . Unable to speak with patient so without identifying the patient the following information was left on their voice mail: Date of procedure, location and report time A message was left informing the patient/patient national sales representative they must have a responsible adult accompany them to their procedure; and remain in the endoscopy area until they are discharged. Failure to have a responsible adult accompany the patient to their procedure appointment prevents the use of sedation or anesthesia for their procedure; and can result in cancellation of the procedure NPO instructions were reviewed. Instructions to contact their primary care provider regarding their medications and which medications to stop in preparation for their procedure Number to call with questions or concerns [phone] Number to call to cancel their procedure [phone] Candi Banda RN Allergies As of Date: 04/19/2024 Noted Allergy Reaction ERYTHROMYCIN 09/04/2023 8 - GI Upset Date Reviewed: 12/08/2023 Reviewed by: Corrie Pickett, JADEN - Fully Assessed Prescriptions as of 04/19/2024 - ubidecarenone Q-10 (CO Q-10) 10 mg cap Co Q 10 Active - LOW-DOSE ASPIRIN ORAL Low-Dose Aspirin Active - citalopram (CELEXA) 20 mg tablet Take 20 mg by mouth. - clopidogrel (PLAVIX) 75 mg tablet Take 75 mg by mouth. - nitroglycerin sublingual (NITROQUICK) 0.4 mg SL tablet Dissolve 0.4 mg under the tongue. - lutein 20 mg cap Take 1 capsule by mouth two times a day. - pedi multivit no.12 w-fluoride (ZMIFGTBWTFQMR-QQIBPNSF-QE LIC A ORAL) Take by mouth. - Cholecalciferol, Vitamin D3, 25 mcg (1,000 unit) cap Cholecalciferol (Vitamin D3) (Vitamin D3) 25 mcg (1,000 unit) Capsule Active 1000 UNIT PO Twice daily November 01, 2019 12:00am - famotidine (PEPCID) 40 mg tablet Take 40 mg by mouth. - rosuvastatin (CRESTOR) 40 mg tablet Take 40 mg by mouth. - ranolazine ER (RANEXA) 500 mg 12 hr tablet Take 1,000 mg by mouth every 12 hours. - Glucosamine HCl 1,500 mg tab Take 1 tablet by mouth. - psyllium husk (METAMUCIL) 3.4 gram/5.4 gram powd Take 1 1e11 Vector Genomes by mouth. Problem List As Of Date: 04/19/2024 (None) Encounter Status:Closed by CANDI BANDA on 04/19/24 [facility] ANES POSTPROC EVALon 024 ANES POSTPROC EVAL HNO ID: [id number] Author: BERNA AVILA MD Service: ? 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 Post Anesthesia Patient Status Patient Evaluation: bedside. Anticipated Disposition: phase 2 then home. Neurological Status: aware and responsive. Pulmonary Status: breathing comfortably on room air Airway Control: returned to baseline unsupported. Cardiovascular Status: stable. Pain Management: clinically adequate Postoperative Hydration: acceptable. Intraoperative Events: no significant anesthesia events Post Operative Nausea/Vomiting Status: no significant post operative nausea or vomiting Recommendation: further care per PACU/ICU/floor team. Anesthesia Observations No Documentation SIGNATURE: Berna Avila MD PATIENT NAME: Alexandria Dodson DATE: December 08, 2023 TIME: 3:09 PM CSN: [id number] Normal [facility] ANES PRE-OPon 12-08-2023 ANES PRE-OP HNO ID: [id number] Author: BERNA AVILA MD Service: ? Author Type: Anesthesiologist Type: Anesthesia Preprocedure Evaluation Filed: 12/08/2023 12:06 Note Text: ANESTHESIOLOGY DAY OF SURGERY NOTE : 1940 Procedure Information Date/Time: 12/08/23 1300 Scheduled providers: Devaughn Farias MD; Alberto Varma APRN.[employer]; Berna Avila MD Procedure: EGD - THERAPEUTIC, EUS, OR TUBE INTERVENTIONS Location: Gastroenterology Estimated body mass index is 25.97 kg/m? as calculated from the following: Height as of this encounter: 177.8 cm (5' 10 ). Weight as of this encounter: 82.1 kg (181 lb). Most recent hematocrit and potassium results: Hematocrit 38.1 11/30/2023 Potassium 4.6 11/30/2023 Relevant Problems No relevant active problems I - PHYSICAL EVALUATION AIRWAY Patient intubated: No. Tracheostomy tube not present Mallampati: I. TM distance: >3 FB. Neck ROM: full ROM without neurological symptoms. Mouth opening: adequate. Short neck: no. Thick neck: no II - ANESTHESIA PLAN ASA Score: 3 Anesthetic Plan: general Airway type: anesthesia mask NPO Status: adequate Beta Jerald Monitoring Plan Monitoring plan: standard ASA. Post Procedure Analgesic Plan Postoperative analgesic plan: multimodal analgesia. Informed Consent Anesthetic risks, benefits, alternatives, personnel and consent discussed: yes. Patient / Responsible Republican agrees to proceed: yes Patient / Surrogate agrees to blood products: Yes Significant changes in the patient condition since the History and Physical, not otherwise documented in primary service progress note: no. Potential Anesthesia issues that may suggest increased risk of complications or contraindication to planned procedure: none. Vitals Value Taken Time BP 182/84 12/08/23 1201 Pulse 75 12/08/23 1201 Resp 18 12/08/23 1201 Temp 36.1 ?C (97 ?F) 12/08/23 1201 SpO2 97 % 12/08/23 1201 Outpatient Medications as of 12/08/2023 Medication Sig - ubidecarenone Q-10 (CO Q-10) 10 mg cap Co Q 10 Active - LOW-DOSE ASPIRIN ORAL Low-Dose Aspirin Active - citalopram (CELEXA) 20 mg tablet Take 20 mg by mouth. - clopidogrel (PLAVIX) 75 mg tablet Take 75 mg by mouth. - nitroglycerin sublingual (NITROQUICK) 0.4 mg SL tablet Dissolve 0.4 mg under the tongue. - lutein 20 mg cap Take 1 capsule by mouth two times a day. - pedi multivit no.12 w-fluoride (NQXMNOOSBMSAB-WAAFWNOU-DS LIC A ORAL) Take by mouth. - Cholecalciferol, Vitamin D3, 25 mcg (1,000 unit) cap Cholecalciferol (Vitamin D3) (Vitamin D3) 25 mcg (1,000 unit) Capsule Active 1000 UNIT PO Twice daily November 01, 2019 12:00am - famotidine (PEPCID) 40 mg tablet Take 40 mg by mouth. - rosuvastatin (CRESTOR) 40 mg tablet Take 40 mg by mouth. - ranolazine ER (RANEXA) 500 mg 12 hr tablet Take 1,000 mg by mouth every 12 hours. - Glucosamine HCl 1,500 mg tab Take 1 tablet by mouth. - psyllium husk (METAMUCIL) 3.4 gram/5.4 gram powd Take 1 1e11 Vector Genomes by mouth. No current facility-administered medications on file as of 12/08/2023. I have interviewed and examined the patient. I have reviewed the medical record and/or the pre-anesthesia evaluation, pertinent labs, and test results. This contains updated information obtained within 48 hours of Surgery/Procedure. SIGNATURE: Berna Avila MD PATIENT NAME: Alexandria Dodson DATE: December 08, 2023 TIME: 12:05 PM CSN: [id number] Normal [facility] Study observation Narrat ivetom 12-08-2023 [facility] NURSING PROGon 12-08-2023 NURSING PROG HNO ID: [id number] Author: CORRIE PICKETT RN Service: Gastroenterology Author Type: Registered Nurse Type: Nursing Progress Note Filed: 12/08/2023 15:07 Note Text: AMBULATORY PATIENT EDUCATION NOTE TOPIC: GI PROCEDURES: Esophagogastroduodenoscopy (EGD) with or without biopies based on clinical findings, removal of polyps or lesions READINESS TO LEARN INSTRUCTION PROVIDED TO: Patient and family member COGNITIVE ABILITY: Alert and oriented PTED MOTIVATION TO LEARN: Interested FAMILY SUPPORT: High - Very involved in pt care IPATIENT LEARNS BEST BY: Individual Instruction Written Instruction - Hand-outs Verbal Instruction FACTORS AFFECTING LEARNING: None PHYSICAL LIMITATIONS AFFECTING LEARNING: None LEARNING RESPONSE METHOD OF INSTRUCTION: Individual instruction PATIENT / FAMILY RESPONSE: Verbalizes understanding of: WORSENING CONDITION-Signs and symptoms of a worsening condition that warrant a call to the physician FOLLOW-UP PLAN: Patient instructed to call with any further issues SUPPLEMENTAL MATERIAL: Procedure Discharge Instructions REFERRAL (RECOMMENDATION): None Electronically Signed By: Corrie Pickett RN Normal [facility] NURSING PROG HNO ID: [id number] Author: TYREE GARZA RN Service: ? Author Type: Registered Nurse Type: Nursing Progress Note Filed: 12/08/2023 11:46 Note Text: PRE OP LEARNING ASSESSMENT PROCEDURE/SURGERY: GI PROCEDURES: EGD and EUS READINESS TO LEARN COGNITIVE ABILITY: Alert and oriented MOTIVATION TO LEARN: Interested FAMILY SUPPORT: Unable to assess - Family not present PATIENT LEARNS BEST BY: Individual Instruction Written Instruction - Hand-outs Verbal Instruction FACTORS AFFECTING LEARNING: None PHYSICAL LIMITATIONS AFFECTING LEARNING: None Electronically Signed By: Tyree Garza RN In Department: GASTROENTEROLOGY Normal [facility] SURGICAL PATHOLOGYon 024 CASE REPORT Normal [facility] Comment on above: Order Comment: Speci men Type: TISSUE SPECIMENOrdering Facility: [facility] Address: [address] [place] [address] Result Comment: Surg [facility] Pathology Report Case: [id number] Authorizing Provider: Devaughn Farias MD Collected: 12/08/2023 02:24 PM Ordering Location: Gastroenterology Received: 12/08/2023 05:28 PM Pathologist: Stephanie Rose MD Specimen: DUODENUM BIOPSY, duodenal polyp bx, r/o CA Performed By: #### S ####[facility] LABORATORYCLIA [id number] [address] LABCLIA [id number] [address] DIAGNOSIS COMMENT A. If clinically the lesion is suspicious for carcinoma, deeper biopsy is warranted. Normal [facility] Comment on above: Order Comment: Speci men Type: TISSUE SPECIMENOrdering Facility: [facility] Address: [address] [place] [address] Performed By: #### S ####[facility] LABORATORYCLIA [id number] [address] LABCLIA [id number] [address] FINAL DIAGNOSIS Normal [facility] Comment on above: Order Comment: Speci men Type: TISSUE SPECIMENOrdering Facility: [facility] Address: [address] [place] [address] Result Comment: A. 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 Performed By: #### S ####[facility] LABORATORYCLIA [id number] [address] LABCLIA [id number] [address] FINAL PERFORMING LAB Normal [facility] Comment on above: Order Comment: Speci men Type: TISSUE SPECIMENOrdering Facility: [facility] Address: [address] [place] [address] Result Comment: Diag nostic interpretation performed at [facility], [address] [address] CLIA# [id number] Fourth Officer: Stephanie Rose M.D. Performed By: #### S ####[facility] [id number] [address] [id number] [address] STATES OF [facility] GROSS DESCRIPTION Normal [facility] Comment on above: Order Comment: Speci men Type: TISSUE SPECIMENOrdering Facility: [facility] Address: [address] [place] [address] Result Comment: A. D UODENUM BIOPSY Received in formalin are two pieces of sulilvan, soft tissue aggregating to 0.6 x 0.2 x 0.1 cm. Totally submitted in one cassette. [place] [address] FFS 12/08/2023 9:38 PM Performed By: #### S ####[facility] [id number] [address] [id number] [address] CNPYeimi 12-01-2023 CNPN Telephone (GASTPR) -- ALEXANDRIA DODSON ([id number]) 1940 M Date Time Provider Department 12/01/23 ASHLYN CHUNG GASTPR During your visit today, we recorded the following information about you: Ashlyn Chung, RN 12/01/2023 3:37 PM Signed GI Pre-Procedure Spoke with patient: Yes Confirmed date scheduled and patient report time: Yes Procedure Planned:Endoscopic Ultrasound (EUS) with or without Fine Needle Aspiration (FNA) Is the patient on blood thinners?yes Patient contacted their PCP for instructions Procedure Instructions given to patient: Yes, and they verbalized their understanding of instructions given Patient instructed to take prescribed preparation prior to procedure:Yes, and they verbalized their understanding of instructions given Patient instructed to have family/friend present for procedure transport home:Patient/patient national sales representative was told that if they do not have a responsible adult accompany them to their procedure; and remain in the endoscopy area until they are discharged; that their procedure cannot be done with sedation or anesthesia and may be cancelled. Any barriers to Patient learning: Patient/Patient Bomb Technician responded appropriately on phone. Type of instruction given: Verbal by telephone contact. Ashlyn Chung RN Allergies As of Date: 12/01/2023 Noted Allergy Reaction ERYTHROMYCIN 09/04/2023 8 - GI Upset Date Reviewed: 10/14/2023 Reviewed by: Alexandria Saunders LPN - Fully Assessed Prescriptions as of 12/01/2023 - ubidecarenone Q-10 (CO Q-10) 10 mg cap Co Q 10 Active - LOW-DOSE ASPIRIN ORAL Low-Dose Aspirin Active - citalopram (CELEXA) 20 mg tablet Take 20 mg by mouth. - clopidogrel (PLAVIX) 75 mg tablet Take 75 mg by mouth. - nitroglycerin sublingual (NITROQUICK) 0.4 mg SL tablet Dissolve 0.4 mg under the tongue. - lutein 20 mg cap Take 1 capsule by mouth two times a day. - pedi multivit no.12 w-fluoride ([id number]-JESGAPQK-XS LIC A ORAL) Take by mouth. - Cholecalciferol, Vitamin D3, 25 mcg (1,000 unit) cap Cholecalciferol (Vitamin D3) (Vitamin D3) 25 mcg (1,000 unit) Capsule Active 1000 UNIT PO Twice daily November 01, 2019 12:00am - famotidine (PEPCID) 40 mg tablet Take 40 mg by mouth. - rosuvastatin (CRESTOR) 40 mg tablet Take 40 mg by mouth. - ranolazine ER (RANEXA) 500 mg 12 hr tablet Take 1,000 mg by mouth every 12 hours. - Glucosamine HCl 1,500 mg tab Take 1 tablet by mouth. - psyllium husk (METAMUCIL) 3.4 gram/5.4 gram powd Take 1 1e11 Vector Genomes by mouth. Problem List As Of Date: 12/01/2023 (None) Encounter Status:Closed by ASHLYN CHUNG on 12/01/23 Normal [facility] Basic metabolic 2000 panelon 11-30-2023 Anion gap [Moles/Vol] 9 mmol/L Normal 9-18 [facility] Comment on above: Order Comment: Speci men Type: BLOOD SPECIMENOrdering Facility: [facility] Address: [address] [place] [address] Performed By: #### 2 4321-2 ####[facility] LABCLIA [id number] [place] [address] Calcium [Mass/Vol] 9.7 mg/dL Normal 8.5-10.2 [facility] Comment on above: Order Comment: Speci men Type: BLOOD SPECIMENOrdering Facility: [facility] Address: [address] [place] [address] Performed By: #### 2 4321-2 ####[facility] LABCLIA [id number] [place] [address] Chloride [Moles/Vol] 107 mmol/L High 97-105 [facility] Comment on above: Order Comment: Speci men Type: BLOOD SPECIMENOrdering Facility: [facility] Address: [address] [place] [address] Performed By: #### 2 4321-2 ####[facility] LABCLIA [id number] [place] [address] CO2 [Moles/Vol] 25 mmol/L Normal 22-30 [facility] Comment on above: Order Comment: Speci men Type: BLOOD SPECIMENOrdering Facility: [facility] Address: [address] [place] [address] Performed By: #### 2 4321-2 ####[facility] LABCLIA [id number] [place] [address] Creatinine [Mass/Vol] 1.22 mg/dL Normal 0.73-1.22 [facility] Comment on above: Order Comment: Speci men Type: BLOOD SPECIMENOrdering Facility: [facility] Address: [address] [place] [address] Performed By: #### 2 4321-2 ####[facility] LABCLIA [id number] [place] [address] Creatinine and Glomerular filtration rate.predicted panel (S/P/Bld) 60 mL/min/1.73m??? Normal >=60 [facility] Comment on above: Order Comment: Aliza fung Type: BLOOD SPECIMENOrdering Facility: [facility] Address: [address] [place] [address] Result Comment: Zenobia mated Glomerular Filtration Rate (eGFR) is calculated using the 2020 CKD-EPI creatinine equation. This equation utilizes serum creatinine, sex, and age as parameters. The creatinine assay has traceable calibration to isotope dilution-mass spectrometry. Refer to KDIGO guidelines for clinical interpretation. In patients with unstable renal function, e.g. those with acute kidney injury, the eGFR may not accurately reflect actual GFR. Performed By: #### 2 4321-2 ####[facility] LABCLIA [id number] [place] [address] Glucose [Mass/Vol] 98 mg/dL Normal 74-99 [facility] Comment on above: Order Comment: Aliza fung Type: BLOOD SPECIMENOrdering Facility: [facility] Address: [address] [place] [address] Result Comment: The [place] Diabetes Association (ADA) provides guidance for cutoff values for fasting glucose and random glucose. The ADA defines fasting as no caloric intake for at least 8 hours. Fasting plasma glucose results between 100 to 125 mg/dL indicate increased risk for diabetes (prediabetes). Fasting plasma glucose results greater than or equal to 126 mg/dL meet the criteria for diagnosis of diabetes. In the absence of unequivocal hyperglycemia, results should be confirmed by repeat testing. In a patient with classic symptoms of hyperglycemia or hyperglycemic crisis, random plasma glucose results greater than or equal to 200 mg/dL meet the criteria for diagnosis of diabetes. Reference: Standards of Medical Care in Diabetes 2016, [place] Diabetes Association. Diabetes Care. 2016.39(Suppl 1). Performed By: #### 2 4321-2 ####[facility] LABCLIA [id number] [place] [address] Potassium [Moles/Vol] 4.6 mmol/L Normal 3.7-5.1 [facility] Comment on above: Order Comment: Speci men Type: BLOOD SPECIMENOrdering Facility: [facility] Address: [address] [place] [address] Performed By: #### 2 4321-2 ####[facility] LABCLIA [id number] [place] [address] Sodium [Moles/Vol] 141 mmol/L Normal 136-144 [facility] Comment on above: Order Comment: Speci men Type: BLOOD SPECIMENOrdering Facility: [facility] Address: [address] [place] [address] Performed By: #### 2 4321-2 ####[facility] LABCLIA [id number] [place] [address] Urea nitrogen [Mass/Vol] 17 mg/dL Normal 9-24 [facility] Comment on above: Order Comment: Speci men Type: BLOOD SPECIMENOrdering Facility: [facility] Address: [address] [place] [address] Performed By: #### 2 4321-2 ####[facility] LABCLIA [id number] [place] [address] CBC panel Auto (Bld)on 11-29 Erythrocyte distribution width (RBC) [Ratio] 12.3 % Normal 11.5-15.0 [facility] Comment on above: Order Comment: Speci men Type: BLOOD SPECIMENOrdering Facility: [facility] Address: [address] [place] [address] Performed By: #### 5 8410-2 ####[facility] LABCLIA [id number] [place] [address] Hematocrit (Bld) [Volume fraction] 38.1 % Low 39.0-51.0 [facility] Comment on above: Order Comment: Speci men Type: BLOOD SPECIMENOrdering Facility: [facility] Address: [address] [place] [address] Performed By: #### 5 8410-2 ####[facility] LABCLIA [id number] [place] [address] Hemoglobin (Bld) [Mass/Vol] 13.0 g/dL Normal 13.0-17.0 [facility] Comment on above: Order Comment: Speci men Type: BLOOD SPECIMENOrdering Facility: [facility] Address: [address] [place] [address] Performed By: #### 5 8410-2 ####[facility] LABCLIA [id number] [place] [address] MCH (RBC) [Entitic mass] 35.2 pg High 26.0-34.0 [facility] Comment on above: Order Comment: Speci men Type: BLOOD SPECIMENOrdering Facility: [facility] Address: [address] [place] [address] Performed By: #### 5 8410-2 ####[facility] LABCLIA [id number] [place] [address] MCHC (RBC) [Mass/Vol] 34.1 g/dL Normal 30.5-36.0 [facility] Comment on above: Order Comment: Speci men Type: BLOOD SPECIMENOrdering Facility: [facility] Address: [address] [place] [address] Performed By: #### 5 8410-2 ####[facility] LABCLIA [id number] [place] [address] MCV (RBC) [Entitic vol] 103.3 fL High 80.0-100.0 [facility] Comment on above: Order Comment: Speci men Type: BLOOD SPECIMENOrdering Facility: [facility] Address: [address] [place] [address] Performed By: #### 5 8410-2 ####[facility] LABCLIA [id number] [place] [address] Nucleated RBC (Bld) [#/Vol] 10*3/uL Normal <0.01 [facility] Comment on above: Order Comment: Speci men Type: BLOOD SPECIMENOrdering Facility: [facility] Address: [address] [place] [address] Performed By: #### 5 8410-2 ####[facility] LABCLIA [id number] [place] [address] Platelet mean volume (Bld) [Entitic vol] 10.2 fL Normal 9.0-12.7 [facility] Comment on above: Order Comment: Speci men Type: BLOOD SPECIMENOrdering Facility: [facility] Address: [address] [place] [address] Performed By: #### 5 8410-2 ####[facility] LABCLIA [id number] [place] [address] Platelets (Bld) [#/Vol] 186 10*3/uL Normal 150-400 [facility] Comment on above: Order Comment: Speci men Type: BLOOD SPECIMENOrdering Facility: [facility] Address: [address] [place] [address] Performed By: #### 5 8410-2 ####[facility] LABCLIA [id number] [place] [address] RBC (Bld) [#/Vol] 3.69 10*6/uL Low 4.20-6.00 [facility] Comment on above: Order Comment: Speci men Type: BLOOD SPECIMENOrdering Facility: [facility] Address: [address] [place] [address] Performed By: #### 5 8410-2 ####[facility] LABIA [id number] [place] [address] WBC (Bld) [#/Vol] 5.78 10*3/uL Normal 3.70-11.00 [facility] Comment on above: Order Comment: Speci men Type: BLOOD SPECIMENOrdering Facility: [facility] Address: [address] [place] [address] Performed By: #### 5 8410-2 ####[facility] LABCLIA [id number] [place] [address] TYPE AND SCREEN,30 DAYon ABO O Normal [facility] Comment on above: Order Comment: Speci men Type: BLOOD SPECIMENOrdering Facility: [facility] Address: [address] [place] [address] Performed By: #### T SCR30 ####CC MAIN BLOOD BANKCLIA [id number] [address] STATES OF [place] HISTORICAL AB SCR STATUS Negative Normal [facility] Comment on above: Order Comment: Speci men Type: BLOOD SPECIMENOrdering Facility: [facility] Address: [address] [place] [address] Performed By: #### T SCR30 ####[facility] MAIN BLOOD BANKCLIA [id number] [place] [address] [place] Rh Nom (Bld) Negative Normal [facility] Comment on above: Order Comment: Speci men Type: BLOOD SPECIMENOrdering Facility: [facility] Address: [address] [place] [address] Performed By: #### T SCR30 ####CC MAIN BLOOD BANKCLIA [id number] [place] [address] [place] CNOVon 10-14-2023 CNOV Office Visit (GASTMN ) -- ALEXANDRIA DODSON ([id number]) 1940 M Date Time Provider Department 1/17/24 1:30 PM DEVAUGHN FARIAS GASTMN During your visit today, we recorded the following information about you: Temperature Pulse Blood pressure Weight 97.7 degrees 61/minute 162/72 83.1 kg Height 1.778 m Devaughn Farias MD 10/15/2023 1:53 PM Signed [facility] New Visit HPI Alexandria Dodson is a 82 year old male who 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 This consult was requested by for evaluation of duodenal adenoma. My final recommendations will be communicated back to the requesting health care provider by way of shared medical record or [place] postal services. Note from Office Visit 09/04/2023, Zuleika Mack MD. 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 He has had chronic sharp epigastric pain, heartburn and weight loss (-10lb in 3-4 months). Started taking Pepcid 40mg and the occaisional epigastric pain and heartburn become less frequent. The last episode of the epigastric pain was about a month ago, which lasted for an hour and subsided on its own. Given weight loss and upper GI symptoms, EGD was ordered by his PCP (Dr. Vance), which was done on 08/05/[address] Gallo ([facility] - Dr. Jules Gallo [phone]). Full EGD report is not available in the CareEverywhere. Pathology was sent to [facility] which showed tubular adenoma in duodenum (low-grade dysplasia). His family states that adenoma (or adenomas?) was not fully removed during the procedure. He denies hematochezia, odynophagia, dysphagia, nausea, vomiting, lower abdominal pain or diarrhea. Constipation has been well managed by taking oatmeal, fruits and psyllium. Colonoscopy was done on 10/26/2017 - reportedly normal, with no plan to repeat. Sister and Daughter diagnosed with Crohn's disease. 82/M with PMHx of GERD, family history of Crohn's (sister and daughter), who had EGD locally on 08/05/2023 which showed pathology report with duodenal adenoma (low-grade dysplasia). Full report in terms of the location, size, number of the adenoma are not available but will be obtained. He will likely need endoscopic removal of the duodenal adenoma via snare, EMR, ESD, or APC depending on Dr. Farias's assessment. REVIEWED ITEMS N/A Current Outpatient Medications Medication Sig Dispense Refill ubidecarenone Q-10 (CO Q-10) 10 mg cap Co Q 10 Active LOW-DOSE ASPIRIN ORAL Low-Dose Aspirin Active citalopram (CELEXA) 20 mg tablet Take 20 mg by mouth. clopidogrel (PLAVIX) 75 mg tablet Take 75 mg by mouth. nitroglycerin sublingual (NITROQUICK) 0.4 mg SL tablet Dissolve 0.4 mg under the tongue. lutein 20 mg cap Take 1 capsule by mouth two times a day. pedi multivit no.12 w-fluoride ([id number]-[id number]-GS LIC A ORAL) Take by mouth. Cholecalciferol, Vitamin D3, 25 mcg (1,000 unit) cap Cholecalciferol (Vitamin D3) (Vitamin D3) 25 mcg (1,000 unit) Capsule Active 1000 UNIT PO Twice daily November 01, 2019 12:00am famotidine (PEPCID) 40 mg tablet Take 40 mg by mouth. rosuvastatin (CRESTOR) 40 mg tablet Take 40 mg by mouth. ranolazine ER (RANEXA) 500 mg 12 hr tablet Take 500 mg by mouth every 12 hours. Glucosamine HCl 1,500 mg tab Take 1 tablet by mouth. psyllium husk (METAMUCIL) 3.4 gram/5.4 gram powd Take 1 1e11 Vector Genomes by mouth. No current facility-administered medications for this visit. ALLERGIES Allergen Reactions Erythromycin GI Upset PHYSICAL EXAMINATION Appeared well LABS Hemoglobin (g/dL) Date Value 03/03/2002 15.2 Hematocrit (%) Date Value 03/03/2002 42.8 WBC (k/uL) Date Value 03/03/2002 6.82 Platelet Count (K/uL) Date Value 03/03/2002 249 Glucose (mg/dL) Date Value 03/03/2002 97 Potassium (mmol/L) Date Value 03/03/2002 4.4 Sodium (mmol/L) Date Value 03/03/2002 141 Chloride (mmol/L) Date Value 03/03/2002 106 CO2 (mmol/L) Date Value 03/03/2002 24 Creatinine (mg/dL) Date Value 03/03/2002 1.0 BUN (mg/dL) Date Value 03/03/2002 17 Anion Gap (mmol/L) Date Value 03/03/2002 11 Calcium (mg/dL) Date Value 03/03/[address] To's note ADDENDUM) Obtained EGD report from [facility], will scan into [facility] and send a message to Dr. Farias. Findings Duodenum: there is heterogeneous appearing tissue just past the sweep, suspicious for ectopic gastric tissue, biopsies obtained. Otherwise bulb and descending portion appeared normal. Stomach: pyloric channel, antrum, body, fundus and cardia, including retroflexed views appear normal. Esophagus: Diaphragmatic hiatus was 44cm from incisors and GE junction was at 44cm from incisors. Squamocolumnar junction (more content not included)... Normal [facility] ALEXANDRIA DODSON ([id number]) 1940 M Date Time Provider Department 09/04/23 CARLOS TO During your visit today, we recorded the following information about you: Joe Dawson 09/04/2023 9:47 AM Signed Hello, patient wanted to reach out asking if the scheduled date to see is too far out. Currently scheduled to see Dr. Farias in November for an EUS. Patient would like to be contacted in response Home: [phone] Cell phone: [phone] Allergies As of Date: 09/04/2023 Noted Allergy Reaction ERYTHROMYCIN 09/04/2023 8 - GI Upset Date Reviewed: 09/04/2023 Reviewed by: Alexandria Saunders LPN - Fully Assessed Prescriptions as of 09/04/2023 - ubidecarenone Q-10 (CO Q-10) 10 mg cap Co Q 10 Active - LOW-DOSE ASPIRIN ORAL Low-Dose Aspirin Active - citalopram (CELEXA) 20 mg tablet Take 20 mg by mouth. - clopidogrel (PLAVIX) 75 mg tablet Take 75 mg by mouth. - nitroglycerin sublingual (NITROQUICK) 0.4 mg SL tablet Dissolve 0.4 mg under the tongue. - lutein 20 mg cap Take 1 capsule by mouth two times a day. - pedi multivit no.12 w-fluoride (ALTCSJSCPAIYD-BNHAFRYF-MV LIC A ORAL) Take by mouth. - Cholecalciferol, Vitamin D3, 25 mcg (1,000 unit) cap Cholecalciferol (Vitamin D3) (Vitamin D3) 25 mcg (1,000 unit) Capsule Active 1000 UNIT PO Twice daily November 01, 2019 12:00am - famotidine (PEPCID) 40 mg tablet Take 40 mg by mouth. - rosuvastatin (CRESTOR) 40 mg tablet Take 40 mg by mouth. - ranolazine ER (RANEXA) 500 mg 12 hr tablet Take 500 mg by mouth every 12 hours. - Glucosamine HCl 1,500 mg tab Take 1 tablet by mouth. - psyllium husk (METAMUCIL) 3.4 gram/5.4 gram powd Take 1 1e11 Vector Genomes by mouth. Problem List As Of Date: 09/04/2023 (None) Encounter Status:Closed by JOE DAWSON on 09/04/23 Normal [facility] SURGICAL PATHOLOGY REFERENCE LAB CONSULTon 08-07-2023 CASE REPORT Normal [facility] Comment on above: Order Comment: Speci men Type: FORMALIN-FIXED PARAFFIN-EMBEDDED TISSUE SPECIMENOrdering Facility: [facility] Address: [facility] [place] [address] Result Comment: Surg ica Pathology Report Case: [id number] Authorizing Provider: Vaughn Escalante MD Collected: 08/07/2023 10:33 AM Ordering Location: [facility] Received: 08/07/2023 10:33 AM [facility] Pathologist: Aaron Mendosa MD Specimen: SLIDE(S), 2 SLIDES, [id number] Performed By: #### L [id number] ####[facility] [id number] [address] STATES OF [facility] CLINICAL HISTORY CONSULT REQUESTED [facility] Comment on above: Order Comment: Speci men Type: FORMALIN-FIXED PARAFFIN-EMBEDDED TISSUE SPECIMENOrdering Facility: [facility] Address: [place] [id number] Performed By: #### L [id number] ####[facility] [id number] [address] DIAGNOSIS COMMENT [facility] Comment on above: Order Comment: Speci men Type: FORMALIN-FIXED PARAFFIN-EMBEDDED TISSUE SPECIMENOrdering Facility: [facility] Address: [address] [place], [place] [address] [address] Result Comment: Than k you for allowing us the opportunity to review this case in consultation representing a small bowel biopsy from an 82-year-old gentleman who presented for upper GI endoscopy to evaluate gastroesophageal reflux disease. Histologic sections demonstrate fragments of duodenal mucosa with adenomatous-type dysplasia characterized by nuclear enlargement, hyperchromasia, and stratification involving the deep glands and extending to involve the surface epithelium as well. These features are consistent with tubular adenoma (low-grade dysplasia). Cytoarchitectural features of high-grade dysplasia are not identified. Thank you for sending this case in consultation. Please do not hesitate to contact us at [phone] with questions or if additional follow-up information becomes available. This case was reviewed in conjunction with the GI pathology fellow, Warren Rey M.D. Performed By: #### L [id number] ####[facility] [id number] [address] FINAL DIAGNOSIS Normal [facility] Comment on above: Order Comment: Speci men Type: FORMALIN-FIXED PARAFFIN-EMBEDDED TISSUE SPECIMENOrdering Facility: [facility] Address: [address] [place] [id number] Result Comment: Jonnie diaz bowel, biopsy (A1-1, A1-2): - Tubular adenoma (low-grade dysplasia). MISA/ 08/07/2023 Performed By: #### Wlai [id number] ####[facility] [id number] [address] OF [facility] FINAL PERFORMING LAB Normal [facility] Comment on above: Order Comment: Speci men Type: FORMALIN-FIXED PARAFFIN-EMBEDDED TISSUE SPECIMENOrdering Facility: [facility] Address: [facility] [place] [address] Result Comment: Diag nostic interpretation performed at [facility], [address] [id number] CLIA# [id number] Fourth Officer: Óscar Marquis M.D. Performed By: ###José Miguel Diaz [id number] ####[facility] [id number] [address] Rhett 08-04-2023 L ------ Specimen: [id number] Received: 08/04/23 Status: JALEELNeeta Tripp Num: [id number] Spec Type: Surgical Subm Dr: Jules Gallo MD Tissues: A Small Intestine - Biopsy/Polyp (SMALL BOWEL BX) Procedures: HE/2, Gross/Micro L4 Age/ Patient Sex Location Account Attending Physician Alexandria Dodson 82/M [id number] Jules Gallo MD SPEC NUM: [id number] RECD: 08/04/23 STATUS: ORI TRIPP NUM: [id number] BONNIE: 08/04/23- [facility] DR: Jules Gallo MD ENTERED: 08/04/[address] [facility] DR: BRIGHT TYPE: Surgical DEPT: S ORDERED: HE/2, Gross/Micro L4 ORDERED: HE/2, Gross/Micro L4 Supplemental Report Addendum 1 Entered: 08/10/23 SUPPLEMENTAL FOR CONSULTATION REPORT FROM [facility] --TUBULAR ADENOMA (LOW GRADE DYSPLASIA) NOTE: -In agreement with original diagnosis Addendum Signed (signature on file) Cachorro Escalante MD 08/10/23 0194 Pathological Diagnosis Small bowel biopsy: - Duodenal mucosa with apparently mild diffuse adenomatous glandular dysplasia in the superficial mucosa, consistent with duodenal adenoma, otherwise without malignancy, or any other high-grade features identified Specimen: [id number] Received: 08/04/23 Status: ORI Tripp Num: [id number] Spec Type: Surgical Subm Dr: Jules Gallo MD Tissues: A Small Intestine - Biopsy/Polyp (SMALL BOWEL BX) Procedures: HE/2, Gross/Micro L4 Patient: Alexandria Dodson [id number] (Continued) Specimen: [id number] Received: 08/04/23 (Continued) Signed (signature on file) Cachorro Escalante MD 08/05/23 1624 Specimen: [id number] Received: 08/04/23 Status: ORI Tripp Num: [id number] Spec Type: Surgical Subm Dr: Jules Gallo MD Tissues: A Small Intestine - Biopsy/Polyp (SMALL BOWEL BX) Procedures: HE/2, Gross/Micro L4 Patient: Alexandria Dodson Fior [id number] (Continued) Specimen: [id number] Received: 08/04/23 (Continued) Clinical Information GERD, rule out malignancy, rule out adenoma Gross Description Received in formalin labeled with the patient's name, date of and small bowel biopsy rule out malignancy rule out adenoma are multiple sullivan tissues ranging from less than 0.1 cm to 0.3 cm. Entirely submitted in one cassette labeled A1. Microscopic Description Two H E slides reviewed. The microscopic examination confirms the diagnosis. CPT Codes 13222 Specimen: [id number] Received: 08/04/23 Status: ORI Tripp Num: [id number] Spec Type: Surgical Subm Dr: Jules Gallo MD Tissues: A Small Intestine - Biopsy/Polyp (SMALL BOWEL BX) Procedures: HE/2, Gross/Micro L4 Patient: Alexandria Dodson [id number] (Continued) Signed (signature on file) Vaughn-Zachary Escalante MD 08/05/23 1624 Normal [facility] VASC LAB Carotid Artery Dupl ex Ultrasounon 04-27-2023 VASC LAB Carotid Artery Duplex Ultrasoun [address], [place] [address] Vascular Lab Report Carotid Artery Duplex Ultrasound Patient Name: ALEXANDRIA Christianson Physician: [id number] Ariane Santos MD, [facility] Study Date: 04/27/2023 Referring KOBY MCCLAIN Physician: MRN/PID: [id number] PCP: Eloise Vance DO Accession/Order#: [id number] CC Report to: Date of : 1940 Technologist: Taryn Bradley RDCS, RVT Gender: M Technologist 2: Admission Status: Outpatient Location Performed: [facility] Diagnosis/ICD: K99-Cymmalfaw and giddiness Indication: ASCVD, HTN, Hyperlipidemia, Former Smoker, PTCA, Overweight, Sick Sinus Syndrome with Pacemaker Procedure/CPT: 92498 Cerebrovascular Carotid Duplex scan complete-16363 CONCLUSIONS: Right Carotid: Findings are consistent with less than 50% stenosis of the right proximal internal carotid artery. Laminar flow seen by color Doppler. Right external carotid artery appears patent with no evidence of stenosis. No evidence of hemodynamically significant stenosis of the right common carotid artery. The right vertebral artery is patent with antegrade flow. No changes since 2020. Left Carotid: Findings are consistent with less than 50% stenosis of the left proximal internal carotid artery. Laminar flow seen by color Doppler. Left external carotid artery appears patent with no evidence of stenosis. No evidence of hemodynamically significant stenosis of the left common carotid artery. The left vertebral artery is patent with antegrade flow. No changes since 2020. Imaging AND Doppler Findings: Right Plaque Morph: The proximal right internal carotid artery demonstrates irregular plaque. Left Plaque Morph: The proximal left internal carotid artery demonstrates irregular and calcified plaque. Right Left PSV EDV PSV EDV 84 cm/s 17 cm/s CCA P 86 cm/s 14 cm/s 58 cm/s 12 cm/s CCA M 70 cm/s 13 cm/s 52 cm/s 14 cm/s CCA D 61 cm/s 14 cm/s 60 cm/s 17 cm/s ICA P 59 cm/s 17 cm/s 105 cm/s 29 cm/s ICA M 85 cm/s 28 cm/s 81 cm/s 23 cm/s ICA D 95 cm/s 29 cm/s 101 cm/s ECA 83 cm/s 35 cm/s Vertebral 38 cm/s Right Left ICA/CCA Ratio 1.1 1.0 [id number] Ariane Santos MD, FACC Final Normal [facility] VASC LAB Carotid Artery Dupl ex Ultrasoundon 04-27-2023 US.doppler Car[facility] DO Work Phone: Office Visit (Cardiology)on 03-16-2023 Follow-up visit Diagnoses/Problems Assessed ASCVD (arteriosclerotic cardiovascular disease) (429.2,440.9) (I25.10) History of PTCA (V45.82) (Z98.61) Hyperlipidemia (272.4) (E78.5) Hypertension (401.9) (I10) Overweight with body mass index (BMI) of 27 to 27.9 in adult (278.02,V85.23) (E66.3,Z68.27) Pacemaker (V45.01) (Z95.0) SSS (sick sinus syndrome) (427.81) (I49.5) Dizziness (780.4) (R42) Dyspnea on exertion (786.09) (R06.09) Former smoker (V15.82) (Z87.891) quit 1968 Orders ASCVD (arteriosclerotic cardiovascular disease), Dizziness VASC LAB Carotid Artery Duplex Ultrasound; Status:Hold For - Scheduling,Retrospective Authorization; Requested for:16Mar2023; Laterality : Bilateral ASCVD (arteriosclerotic cardiovascular disease), History of PTCA, Hypertension, SSS (sick sinus syndrome) Start: Ranolazine ER 500 MG Oral Tablet Extended Release 12 Hour; TAKE 1 TABLET EVERY 12 HOURS Overweight with body mass index (BMI) of 27 to 27.9 in adult Healthy Weight Tips; Status:Complete - Retrospective Authorization; Done: 16Mar2023 Some eating tips that can help you lose weight.; Status:Complete - Retrospective Authorization; Done: 16Mar2023 SocHx: Former smoker Tobacco Use Screening; Status:Complete; Done: 16Mar2023 Patient Instructions Please bring all medicines, vitamins, and herbal supplements with you when you come to the office. Prescriptions will not be filled unless you are compliant with your follow up appointments or have a follow up appointment scheduled as per instruction of your physician. Refills should be requested at the time of your visit. Carotid U/S Follow up in 6 months Chief Complaint ALEXANDRIA DODSON is being seen for stress test results. History of Present Illness Patient returns in follow-up of recent coronary angiogram. His findings were notable for multiple patent stents but also in-stent stenosis in the circumflex territory. The amount of myocardium at risk is very small and although it could cause some symptoms the risk-benefit ratio spoke against attempting revascularization of this in-stent stenosis and Dr. Ponce recommended medical therapy. The patient reminds me that he was intolerant to metoprolol in the past and because of this we will forego that. We discussed nitrates and/or ranolazine and ultimately we elected to put him on ranolazine for 30 days and he is to call and let us know if he wishes refills if in fact it improves his quality of life. He still complains of dizziness. He questions whether could be on the basis of carotid disease. Auscultation demonstrates no bruits but because its been very difficult to ascertain the etiology of his symptomatology I did agree that a carotid ultrasound could be performed to evaluate the dizziness in order to see if in fact it is on the basis of cerebral hypoperfusion Other risk factors including his lipids and hypertension appear to be adequately managed. His pacemaker checks are reviewed and they demonstrate satisfactory device performance with no underlying arrhythmias that necessitate a change in therapy. Surgical History Problems History of Back surgery History of Cardiac catheterization History of Cardiac catheterization with stent placement History of Cataract surgery History of Complete colonoscopy History of Hernia repair History of Pacemaker insertion History of Percutaneous transluminal coronary angioplasty Current Meds Medication NameInstruction Aspirin EC 81 MG TBECTAKE 1 TABLET DAILY. Citalopram Hydrobromide 20 MG Oral TabletTAKE 1 TABLET DAILY. Clopidogrel Bisulfate 75 MG Oral TabletTAKE 1 TABLET DAILY. Co Q 10 100 MG Oral CapsuleTAKE 1 CAPSULE TWICE DAILY. Famotidine 40 MG Oral TabletTAKE 1 TABLET Daily Glucosamine HCl - 1500 MG Oral TabletTAKE DIRECTED. Lutein 20 MG Oral CapsuleTake 1 capsule twice daily MSM 1500 MG TABSTAKE DIRECTED PER PACKAGE INSTRUCTIONS. Nitroglycerin 0.4 MG Sublingual Tablet SublingualDISSOLVE 1 TABLET UNDER THE TONGUE NEEDED FOR CHEST PAIN. Rosuvastatin Calcium 40 MG Oral TabletTAKE 1 TABLET DAILY. Vitamin B12 1000 MCG Oral Tablet Extended ReleaseTAKE 1 TABLET DAILY DIRECTED. Vitamin D3 25 MCG (1000 UT) Oral TabletTAKE 2 TABLET Daily Allergies Medication Biaxin TABS Recorded By: Anuja Qureshi; 09/06/2021 9:57:16 AM clarithromycin Allergy; Recorded By: Anuja Qureshi; 09/06/2021 9:47:12 AM Erythromycin Base TABS Recorded By: Anuja Qureshi; 09/06/2021 9:57:16 AM erythromycin Allergy; Recorded By: Anuja Qureshi; 09/06/2021 9:47:13 AM Social History Problems Alcohol use (V49.89) (Z78.9) occaionlly on and off Caffeine use (V49.89) (Z78.9) 1 cup of decafe coffee daily Former smoker (V15.82) (Z87.891) quit 1967 No illicit drug use Review of Systems Constitutional: not feeling tired. Eyes: no eyesight problems. ENT: no hearing loss and no nosebleeds. Cardiovascular: no intermittent leg claudication and as noted in HPI. Respiratory: no chronic cough (more content not included)... Normal [employer] Tobacco Screening.on 023 Fall risk assessment a) No falls within the last year [facility] Work Phone: Tobacco use status CP b) No [facility] [employer] 250 DO Work Phone: Activated partial thrombopla stin time (aPTT) in platelet poor plasma by coagulation aOrdered By: Jaqueline Ponce on 02-06-2023 aPTT Coag (PPP) [Time] 32.6 s 25.1-36.5 [facility] Basophils Auto (Bld) [#/Vol] Ordered By: Jaqueline Ponce on 02-06-2023 Basophils (Bld) [#/Vol] 0.0 10*3/uL 0.0-0.2 [facility] Basophils/100 WBC Auto (Bld) Ordered By: Jaqueline Ponce on 02-06-2023 Basophils/100 WBC (Bld) 0.6 % . [facility] Carbon dioxide, total [Moles /volume] in Serum or PlasmaOrdered By: Jaqueline Ponce on 02-06-2023 CO2 [Moles/Vol] 26.8 mmol/L 21.0-31.0 [facility] Chloride [Moles/volume] in S ayaz or PlasmaOrdered By: Jaqueline Ponce on 02-06-2023 Chloride [Moles/Vol] 107 mmol/L 98-107 [facility] Cholesterol [Mass/volume] in Serum or PlasmaOrdered By: Jaqueline Ponce on 02-06-2023 Cholesterol [Mass/Vol] 122 mg/dL 140-200 [facility] Comment on above: Chol less than 200 m g/dl low riskChol 201-239 mg/dl borderline riskChol 240 mg/dl and greater high risk Cholesterol in LDL Calc [Mas s/Vol]Ordered By: Jaqueline Ponce on 02-06-2023 Cholesterol in LDL [Mass/Vol] 45 mg/dL 0-100 [facility] Comment on above: LDL ATP III CLASSIFI CATIONLDL less than 100 mg/dL OptimalLDL 100-129 mg/dL Near or above optimalLDL 130-159 mg/dL Borderline highLDL 160-189 mg/dL HighLDL greater than 189 mg/dL Very high Cholesterol in VLDL Calc [Ma ss/Vol]Ordered By: Jaqueline Ponce on 02-06-2023 Cholesterol in VLDL [Mass/Vol] 27 mg/dL [facility] Creatinine [Mass/volume] in Serum or PlasmaOrdered By: Jaqueline Ponce on 02-06-2023 Creatinine [Mass/Vol] 1.02 mg/dL 0.70-1.30 [facility] Eosinophils Auto (Bld) [#/Vo l]Ordered By: Jaqueline Ponce on 02-06-2023 Eosinophils (Bld) [#/Vol] 0.1 10*3/uL 0.0-0.45 [facility] Eosinophils/100 WBC Auto (Bl d)Ordered By: Jaqueline Ponce on 02-06-2023 Eosinophils/100 WBC (Bld) 0.9 % . [facility] Erythrocyte distribution wid th Auto (RBC) [Ratio]Ordered By: Jaqueline Ponce on 02-06-2023 Erythrocyte distribution width (RBC) [Ratio] 12.6 % 12.0-14.8 [facility] Hematocrit Auto (Bld) [Volum e fraction]Ordered By: Jaqueline Ponce on 02-06-2023 Hematocrit (Bld) [Volume fraction] 40.4 % 38.8-50.0 [facility] Hemoglobin [Mass/volume] in BloodOrdered By: Jaqueline Ponce on 02-06-2023 Hemoglobin (Bld) [Mass/Vol] 13.9 g/dL 13.0-17.0 [facility] Laboratory - CoagulationOrde red By: Jaqueline Ponce on 02-06-2023 PT Coag (PPP) [Time] 11.8 s 9.0-12.9 [facility] Leukocytes [#/volume] correc bozena for nucleated erythrocytes in Blood by Automated counOrdered By: Jaqueline Ponce on 02-06-2023 WBC corrected for nucl RBC Auto (Bld) [#/Vol] 6.1 10*3/uL 4.1-10.5 [facility] Lymphocytes Auto (Bld) [#/Vo l]Ordered By: Jaqueline Ponce on 02-06-2023 Lymphocytes (Bld) [#/Vol] 1.0 10*3/uL 1.00-4.8 [facility] Lymphocytes/100 WBC Auto (Bl d)Ordered By: Jaqueline Ponce on 02-06-2023 Lymphocytes/100 WBC (Bld) 16.6 % . [facility] MCH Auto (RBC) [Entitic mass ]Ordered By: Jaqueline Ponce on 02-06-2023 MCH (RBC) [Entitic mass] 34.8 pg 27.5-35.2 [facility] MCHC Auto (RBC) [Mass/Vol]Or dered By: Jaqueline Ponce on 02-06-2023 MCHC (RBC) [Mass/Vol] 34.5 g/dL 32.5-35.6 [facility] MCV Auto (RBC) [Entitic vol] Ordered By: Jaqueline Ponce on 02-06-2023 MCV (RBC) [Entitic vol] 100.7 fL 83.5-101 [facility] Monocytes Auto (Bld) [#/Vol] Ordered By: Jaqueline Ponce on 02-06-2023 Monocytes (Bld) [#/Vol] 0.6 10*3/uL 0.0-0.8 [facility] Monocytes/100 WBC Auto (Bld) Ordered By: Jaqueline Ponce on 02-06-2023 Monocytes/100 WBC (Bld) 10.5 % . [facility] Neutrophils Auto (Bld) [#/Vo l]Ordered By: Jaqueline Ponce on 02-06-2023 Neutrophils (Bld) [#/Vol] 4.3 10*3/uL 1.8-7.7 [facility] Neutrophils/100 WBC Auto (Bl d)Ordered By: Jaqueline Ponce on 02-06-2023 Neutrophils/100 WBC (Bld) 71.4 % . [facility] No Panel InformationOrdered By: Jaqueline Ponce on 02-06-2023 Estimated GFR (CKD-EPI) > 60.0 mL/Min [facility] Creatinine Clearance (Chem N/A [facility] Nucleated erythrocytes [Pres ence] in Blood by Automated countOrdered By: Jaqueline Ponce on 02-06-2023 Nucleated RBC Auto Ql (Bld) 0.0 /100{WBC} 0-0.5 [facility] Platelet mean volume Auto (B ld) [Entitic vol]Ordered By: Jaqueline Ponce on 02-06-2023 Platelet mean volume (Bld) [Entitic vol] 7.9 fL 6.6-10.1 [facility] Platelet poor plasma interna tional normalized ratio (INR) by coagulation assay (relatOrdered By: Jaqueline Ponce on 02-06-2023 INR Coag (PPP) [Relative time] 1.0 {INR} [facility] Comment on above: INR Therapeutic Rang e A) Pre- and Peroperative OAT started two weeks before surgery. NOT HIP SURGERY: 1.5 - 2.5 HIP SURGERY: 2 - 3B) Primary and secondary prevention of venous THROMBOSIS: 2 - 3C) Active venous thrombosis, pulmonary embolismand prevention of recurrent venous thrombosis: 2 - 3D) Prevention of arterial thromboembolismincluding patients with mechanical heart valves: 3 - 4.5 Platelets Auto (Bld) [#/Vol] Ordered By: Jaqueline Ponce on 02-06-2023 Platelets (Bld) [#/Vol] 205 10*3/uL 150-450 [facility] [facility] Potassium [Moles/volume] in Serum or PlasmaOrdered By: Jaquleine Ponce on 02-06-2023 Potassium [Moles/Vol] 4.3 mmol/L 3.5-5.1 [facility] RBC Auto (Bld) [#/Vol]Ordere d By: Jaqueline Ponce on 02-06-2023 RBC (Bld) [#/Vol] 4.01 10*6/uL 3.90-5.60 [facility] Serum or plasma anion gap de terminationOrdered By: Jaqueline Ponce on 02-06-2023 Anion gap [Moles/Vol] 10.5 mmol/L 6.0-15.0 [facility] Serum or plasma high density lipoprotein (HDL) cholesterol measurementOrdered By: Jaqueline Ponce on 02-06-2023 Cholesterol in HDL [Mass/Vol] 49 mg/dL 29-71 [facility] Comment on above: HDL CHOL ATP-III CLA SSIFICATION Cardiovascular RiskHDL > or equal to 60 mg/dL LOWHDL < 40 mg/dL HIGH Serum or plasma total choles terol/high density lipoprotein (HDL) cholesterol mass ratOrdered By: Jaqueline Ponce on 02-06-2023 Cholesterol.total/Chol esterol in HDL [Mass ratio] 2.5 {ratio} <5.0 [facility] Sodium [Moles/volume] in Ser um or PlasmaOrdered By: Jaqueline Ponce on 02-06-2023 Sodium [Moles/Vol] 140 mmol/L 136-145 [facility] Triglyceride [Mass/volume] i n Serum or PlasmaOrdered By: Jaqueline Ponce on 02-06-2023 Triglyceride [Mass/Vol] 138 mg/dL 0-149 [facility] Comment on above: TRIG ATP III CLASSIF ICATIONTRIG less than 150 mg/dL NormalTRIG 150-199 mg/dL Borderline highTRIG 200-500 mg/dL High TRIG greater than 500 mg/dL Very highStandard traceable to the Center for Disease Conrtrol and Prevention (CDC) test method. Urea nitrogen [Mass/volume] in Serum or PlasmaOrdered By: Jaqueline Ponce on 02-06-2023 Urea nitrogen [Mass/Vol] 18 mg/dL 7-25 [facility] WBC Auto (Bld) [#/Vol]Ordere d By: Jaqueline Ponce on 02-06-2023 WBC (Bld) [#/Vol] 6.1 10*3/uL 4.1-10.5 [facility] CARDIAC STRESS/REST INJE CTIONon 02-03-2023 [facility] CARDIAC STRESS/REST INJECTION Patient Name: ALEXANDRIA DODSON STUDY: MYOCARDIAL PERFUSION STRESS TEST WITH EXERCISE Per[facility] [address], [address], [place] [address] [facility] Provider: Elizabeth Mcclain MD, FACC PCP: Dr. Erika Vance Supervising provider: Katie Mckeon MD INDICATION: Abnormal EKG; Angina Pectoris HISTORY: Gender: M; Age: 82 y/o ; Height: 0 cm; Weight: 87.3522914 kg. High Cholesterol; CAD; Abnormal EKG; HTN; PPM Chest Pain; SOB; Quit smoking 51 years ago. Cardiac catheterization on 2006, 2008, 2022. PTCA on 2006, 2008, 2022. COMPARISON: Previous nuclear testing completed [id number] at [facility]. ACCESSION NUMBER(S): [id number]; [id number]; [id number] ORDERING CLINICIAN: KOBY MCCLAIN TECHNIQUE: ONE DAY protocol. Stress injection: Date:02-03-23, 34.2 mCi of Myoview IV at peak exercise. Rest injection: Date: 02-03-23, 11.3 mCi of Myoview IV at rest. Imaging was performed by gated tomographic technique. STRESS TEST DATA: Resting heart rate was 60 BPM. Resting blood pressure was 126/86 mmHg. The patient exercised using a Pepe exercise protocol. 5:59 minutes exercised. 87 % of MPHR achieved for age. 7.00 METS achieved. Maximum heart rate was 120 BPM. Maximum blood pressure was 150/76 mmHg. DTS N/A. TEST TERMINATED DUE TO: Fatigue FINDINGS: STRESS TEST RESULTS: Resting electrocardiogram revealed normal sinus rhythm. The patient had diagnostic ST-T changes with maximal stress. Patient had increased frequency of ventricular ectopy at peak exercise The patient did not have chest pains/symptoms during the procedure. There was a normal recovery phase. There were no significant dysrhythmias. IMAGING RESULTS: Image quality was good. Rest and stress tomographic images were reviewed and revealed abnormal perfusion. There was evidence of perfusion abnormality with small area of mild which is partially reversible on rest images consistent with probable small area of inferior wall ischemia. There was no evidence of myocardial infarction There was not left ventricular dilatation with stress. Overall left ventricular systolic function appeared to be normal with LVEF of 56 % TID is 1.04 and is normal. There were evidence of inferior attenuation artifact. IMPRESSION: Abnormal exercise Myoview cardiac perfusion stress test. With exercise-induced ST-T abnormality and slight increase of frequency of ventricular ectopy at peak exercise Probable small area of mild inferior myocardial ischemia by perfusion imaging. No myocardial infarction by perfusion imaging. Normal left ventricular systolic function. Left ventricular ejection fraction 56 %. When compared to prior study changes are noted the patient had exercise-induced ST-T abnormality, increased frequency of ventricular ectopy and probable small area of inferior wall ischemia. Electronically signed by: KATIE MCKEON MD Normal [facility] No Panel Informationon 02-03 Normal -[facility]-[address] 600 DO Work Phone: Office Visit (Cardiology)on 01-12-2023 Follow-up visit Diagnoses/Problems Assessed Angina, class III (413.9) (I20.9) ASCVD (arteriosclerotic cardiovascular disease) (429.2,440.9) (I25.10) Former smoker (V15.82) (Z87.891) quit 1968 Pacemaker (V45.01) (Z95.0) Hypertension (401.9) (I10) History of PTCA (V45.82) (Z98.61) Overweight with body mass index (BMI) of 27 to 27.9 in adult (278.02,V85.23) (E66.3,Z68.27) Abnormal EKG (794.31) (R94.31) Hyperlipidemia (272.4) (E78.5) Orders Abnormal EKG, Angina, class III NM Cardiac Stress/Rest Nuclear Med Order; Status:Hold For - Scheduling,Retrospective Authorization; Requested for:[id number]; Radiologist to Determine Optimal Study : Y What are the patient's signs and symptoms? : CP and Angina Overweight with body mass index (BMI) of 27 to 27.9 in adult Healthy Weight Tips; Status:Complete - Retrospective Authorization; Done: [id number] Some eating tips that can help you lose weight.; Status:Complete - Retrospective Authorization; Done: [id number] SocHx: Former smoker Tobacco Use Screening; Status:Complete; Done: [id number] Patient Instructions Please bring all medicines, vitamins, and herbal supplements with you when you come to the office. Prescriptions will not be filled unless you are compliant with your follow up appointments or have a follow up appointment scheduled as per instruction of your physician. Refills should be requested at the time of your visit. Follow up after testing completed Stress Test Cardiolite Pacemaker/Defibrillator follow up per routine Chief Complaint ALEXANDRIA DODSON is being seen for CATH 12/04/2022. History of Present Illness Patient returns in follow-up of recent cardiac cath as well as ad hoc angioplasty. He states that he felt good for about 10 days following the intervention but now all of his symptoms have come back and he feels exactly the same as he did before the evaluation and intervention. I advised him is almost impossible for this to be flow-limiting coronary disease. The only way the stent would fail would be abrupt stent thrombosis and this would usually be heralded by a significant large and/or potentially fatal heart attack. Nonetheless he is insistent that his symptoms have not improved. I reviewed his chart with him and suggested to him that his symptoms may in fact not be cardiac. This has been my theory and her hypothesis all along. Nonetheless he is insistent. I advised him I reluctant to recommend angiographic evaluation. We do, though, know his coronary anatomy and I believe stress testing with isotope imaging would be an satisfactory alternative to repeating angiogram to evaluate his symptomatology. Because of this stress testing with isotope imaging will be done. Additionally we may confer with interventional cardiology if the patient is still unconvinced. In the meantime we recommend continued therapy as before for his hypertension and hyperlipidemia. In passing we also note that his pacemaker implant demonstrates satisfactory device performance. No significant arrhythmias and satisfactory lead and battery performance. Surgical History Problems History of Back surgery History of Cardiac catheterization History of Cataract surgery History of Complete colonoscopy History of Hernia repair History of Pacemaker insertion History of Percutaneous transluminal coronary angioplasty Current Meds Medication NameInstruction Aspirin EC 81 MG Oral Tablet Delayed ReleaseTAKE 1 TABLET DAILY. Citalopram Hydrobromide 20 MG Oral TabletTAKE 1 TABLET DAILY. Clopidogrel Bisulfate 75 MG Oral TabletTAKE 1 TABLET DAILY. Co Q 10 100 MG Oral CapsuleTAKE 1 CAPSULE TWICE DAILY. Famotidine 40 MG Oral TabletTAKE 1 TABLET Daily Glucosamine HCl - 1500 MG Oral TabletTAKE DIRECTED. Lutein 20 MG Oral CapsuleTake 1 capsule twice daily MSM 1500 MG TABSTAKE DIRECTED PER PACKAGE INSTRUCTIONS. Nitroglycerin 0.4 MG Sublingual Tablet SublingualDISSOLVE 1 TABLET UNDER THE TONGUE NEEDED FOR CHEST PAIN. Rosuvastatin Calcium 40 MG Oral TabletTAKE 1 TABLET DAILY. Vitamin B12 1000 MCG Oral Tablet Extended ReleaseTAKE 1 TABLET DAILY DIRECTED. Vitamin D3 25 MCG (1000 UT) Oral TabletTAKE 2 TABLET Daily Allergies Medication Biaxin TABS Recorded By: Anuja Qureshi; 09/06/2021 9:57:16 AM clarithromycin Allergy; Recorded By: Anuja Qureshi; 09/06/2021 9:47:12 AM Erythromycin Base TABS Recorded By: Anuja Qureshi; 09/06/2021 9:57:16 AM erythromycin Allergy; Recorded By: Anuja Qureshi; 09/06/2021 9:47:13 AM Social History Problems Alcohol use (V49.89) (Z78.9) occaionlly on and off Caffeine use (V49.89) (Z78.9) 1 cup of decafe coffee daily Former smoker (V15.82) (Z87.891) quit 1967 No illicit drug use Review of Systems Constitutional: not feeling tired. Eyes: no eyesight problems. ENT: no hearing loss and no nosebleeds. Cardiovascular: no intermittent leg claudication and as noted in HPI. Respiratory: no chronic cough and no shortness of breath. Gastrointestina (more content not included)... Normal [employer] Tobacco Screening.on 023 Fall risk assessment a) No falls within the last year [facility] [employer] 250 DO Work Phone: Tobacco use status [facility] b) No [facility] [employer] 250 DO Work Phone: Activated partial thrombopla stin time (aPTT) in platelet poor plasma by coagulation aOrdered By: Koby Mcclain on 12-03-2022 aPTT Coag (PPP) [Time] 31.8 s 25.1-36.5 [facility] Basophils Auto (Bld) [#/Vol] Ordered By: Koby Mcclain on 12-03-2022 Basophils (Bld) [#/Vol] 0.0 10*3/uL 0.0-0.2 [facility] Basophils/100 WBC Auto (Bld) Ordered By: Koby Mcclain on 12-03-2022 Basophils/100 WBC (Bld) 0.5 % . [facility] Carbon dioxide, total [Moles /volume] in Serum or PlasmaOrdered By: Koby Mcclain on 12-03-2022 CO2 [Moles/Vol] 27.4 mmol/L 21.0-31.0 [facility] Chloride [Moles/volume] in S ayaz or PlasmaOrdered By: Koby Mcclain on 12-03-2022 Chloride [Moles/Vol] 105 mmol/L 98-107 [facility] Cholesterol [Mass/volume] in Serum or PlasmaOrdered By: Koby Mcclain on 12-03-2022 Cholesterol [Mass/Vol] 127 mg/dL 140-200 [facility] Comment on above: Chol less than 200 m g/dl low riskChol 201-239 mg/dl borderline riskChol 240 mg/dl and greater high risk Cholesterol in LDL Calc [Mas s/Vol]Ordered By: Koby Mcclain on 12-03-2022 Cholesterol in LDL [Mass/Vol] 50 mg/dL 0-100 [facility] Comment on above: LDL ATP III CLASSIFI CATIONLDL less than 100 mg/dL OptimalLDL 100-129 mg/dL Near or above optimalLDL 130-159 mg/dL Borderline highLDL 160-189 mg/dL HighLDL greater than 189 mg/dL Very high Cholesterol in VLDL Calc [Ma ss/Vol]Ordered By: Koby Mcclain on 12-03-2022 Cholesterol in VLDL [Mass/Vol] 31 mg/dL [facility] Creatinine [Mass/volume] in Serum or PlasmaOrdered By: Koby Mcclain on 12-03-2022 Creatinine [Mass/Vol] 1.01 mg/dL 0.70-1.30 [facility] Eosinophils Auto (Bld) [#/Vo l]Ordered By: Koby Mcclain on 12-03-2022 Eosinophils (Bld) [#/Vol] 0.1 10*3/uL 0.0-0.45 [facility] Eosinophils/100 WBC Auto (Bl d)Ordered By: Koby Mcclain on 12-03-2022 Eosinophils/100 WBC (Bld) 1.2 % . [facility] Erythrocyte distribution wid th Auto (RBC) [Ratio]Ordered By: Koby Mcclain on 12-03-2022 Erythrocyte distribution width (RBC) [Ratio] 12.5 % 12.0-14.8 [facility] Hematocrit Auto (Bld) [Volum e fraction]Ordered By: Koby Mcclain on 12-03-2022 Hematocrit (Bld) [Volume fraction] 40.1 % 38.8-50.0 [facility] Hemoglobin [Mass/volume] in BloodOrdered By: Koby Mcclain on 12-03-2022 Hemoglobin (Bld) [Mass/Vol] 13.8 g/dL 13.0-17.0 [facility] Laboratory - Chemistry and C hemistry - challengeon 12-03-2022 Cholesterol [Mass/Vol] 127\S\127 below low threshold 140-200 [facility] anh 250 DO Work Phone: Comment on above: Chol less than 200 m g/dl low risk Chol 201-239 mg/dl borderline risk Chol 240 mg/dl and greater high risk Cholesterol in LDL [Mass/Vol] 50\S\50 Normal 0-100 [facility] anh 250 DO Work Phone: Comment on above: LDL ATP III CLASSIFI CATION LDL less than 100 mg/dL Optimal LDL 100-129 mg/dL Near or above optimal LDL 130-159 mg/dL Borderline high LDL 160-189 mg/dL High LDL greater than 189 mg/dL Very high Laboratory - Chemistry and C hemistry - challengeOrdered By: Koby Mcclain on 12-03-2022 GFR/1.73 sq M.predicted MDRD (S/P/Bld) [Vol rate/Area] mL/min/{1.73_m2} [facility] Laboratory - CoagulationOrde red By: Koby Mcclain on 12-03-2022 PT Coag (PPP) [Time] 11.7 s 9.0-12.9 [facility] Leukocytes [#/volume] correc bozena for nucleated erythrocytes in Blood by Automated counOrdered By: Koby Mcclain on 12-03-2022 WBC corrected for nucl RBC Auto (Bld) [#/Vol] 6.0 10*3/uL 4.1-10.5 [facility] Lymphocytes Auto (Bld) [#/Vo l]Ordered By: Koby Mcclain on 12-03-2022 Lymphocytes (Bld) [#/Vol] 1.0 10*3/uL 1.00-4.8 [facility] Lymphocytes/100 WBC Auto (Bl d)Ordered By: Koby Mcclain on 12-03-2022 Lymphocytes/100 WBC (Bld) 16.5 % . [facility] MCH Auto (RBC) [Entitic mass ]Ordered By: Koby Mcclain on 12-03-2022 MCH (RBC) [Entitic mass] 34.3 pg 27.5-35.2 [facility] MCHC Auto (RBC) [Mass/Vol]Or dered By: Koby Mcclain on 12-03-2022 MCHC (RBC) [Mass/Vol] 34.5 g/dL 32.5-35.6 [facility] MCV Auto (RBC) [Entitic vol] Ordered By: Koby Mcclain on 12-03-2022 MCV (RBC) [Entitic vol] 99.5 fL 83.5-101 [facility] Monocytes Auto (Bld) [#/Vol] Ordered By: Koby Mcclain on 12-03-2022 Monocytes (Bld) [#/Vol] 0.8 10*3/uL 0.0-0.8 [facility] Monocytes/100 WBC Auto (Bld) Ordered By: Koby Mcclain on 12-03-2022 Monocytes/100 WBC (Bld) 12.6 % . [facility] Neutrophils Auto (Bld) [#/Vo l]Ordered By: Koby Mcclain on 12-03-2022 Neutrophils (Bld) [#/Vol] 4.2 10*3/uL 1.8-7.7 [facility] Neutrophils/100 WBC Auto (Bl d)Ordered By: Koby Mcclain on 12-03-2022 Neutrophils/100 WBC (Bld) 69.2 % . [facility] No Panel InformationOrdered By: Koby Mcclain on 12-03-2022 Pharmacy Creatinine Clearance (Chem N/A [facility] No Panel Informationon 12-03 2.8\S\2.8 Normal <5.0 -[facility] anh 250 DO Work Phone: Comment on above: PERFORMED BY:[facility] [place] [phone] MEDICAL DIRECTORHOLLAND PRICE M.D. 31\S\31 Normal [facility] Malena kamara 250 DO Work Phone: [phone]\S\157 above high threshold 0-149 [facility] Malena kamara 250 DO Work Phone: Comment on above: TRIG ATP III CLASSIF ICATION TRIG less than 150 mg/dL Normal TRIG 150-199 mg/dL Borderline high TRIG 200-500 mg/dL High TRIG greater than 500 mg/dL Very high Standard traceable to the Center for Disease Conrtrol and Prevention (CDC) test method. 46\S\46 Normal 29-71 [facility] Malena kamara 250 DO Work Phone: Comment on above: HDL CHOL ATP-III CLA SSIFICATION Cardiovascular Risk HDL > or equal to 60 mg/dL LOW HDL < 40 mg/dL HIGH 1.01\S\1.01 Normal 0.70-1.30 [facility] Malena kamara 250 DO Work Phone: 15\S\15 Normal 7-25 [facility] Malena kamara 250 DO Work Phone: 12.0\S\12.0 Normal 6.0-15.0 [facility] DO Work Phone: 27.4\S\27.4 Normal 21.0-31.0 [facility] Malena kamara 250 DO Work Phone: 105\S\105 Normal 98-107 [facility] Malena kamara 250 DO Work Phone: [phone] 4.4\S\4.4 Normal 3.5-5.1 [facility] Malena kamara 250 DO Work Phone: [phone] 140\S\140 Normal 136-145 [facility] Malena kamara 250 DO Work Phone: 31.8\S\31.8 Normal 25.1-36.5 [facility] anh 250 DO Work Phone: Comment on above: PERFORMED BY:[facility] [place], [place] [phone] MEDICAL DIRECTORHOLLAND PRICE M.D. 1.0\S\1.0 Normal 1.00-4.8 [facility] anh 250 DO Work Phone: Comment on above: INR Therapeutic Rang e A) Pre- and Peroperative OAT started two weeks before surgery. NOT HIP SURGERY: 1.5 - 2.5 HIP SURGERY: 2 - 3 B) Primary and secondary prevention of venous THROMBOSIS: 2 - 3 C) Active venous thrombosis, pulmonary embolism and prevention of recurrent venous thrombosis: 2 - 3 D) Prevention of arterial thromboembolism including patients with mechanical heart valves: 3 - 4.5 11.7\S\11.7 Normal 9.0-12.9 [facility] anh 250 DO Work Phone: 8.2\S\8.2 Normal 6.6-10.1 [facility] anh 250 DO Work Phone: 204\S\204 Normal 150-450 [facility] anh 250 DO Work Phone: 12.5\S\12.5 Normal 12.0-14.8 [facility] 250 DO Work Phone: [phone] 34.5\S\34.5 Normal 32.5-35.6 [facility] 250 DO Work Phone: [phone] 34.3\S\34.3 Normal 27.5-35.2 [facility] anh 250 DO Work Phone: 99.5\S\99.5 Normal 83.5-101 [facility] 250 DO Work Phone: 0.1\S\0.1 Normal 0.0-0.45 [facility] 250 DO Work Phone: 0.5\S\0.5 Normal . -[facility] anh 250 DO Work Phone: [phone] 1.2\S\1.2 Normal . [facility] anh 250 DO Work Phone: [phone] 12.6\S\12.6 Normal . [facility] anh 250 DO Work Phone: [phone] 16.5\S\16.5 Normal . [facility] anh 250 DO Work Phone: [phone] 69.2\S\69.2 Normal . [facility] anh 250 DO Work Phone: [phone] 0.0\S\0.0 Normal 0.0-0.2 [facility] anh 250 DO Work Phone: [phone] Comment on above: PERFORMED BY:[place] [address] [address] [place], [place] [phone] MEDICAL DIRECTORHOLLAND PRICE M.D. 0.8\S\0.8 Normal 0.0-0.8 [facility] anh 250 DO Work Phone: [phone] 4.2\S\4.2 Normal 1.8-7.7 [facility] anh 250 DO Work Phone: [phone] 40.1\S\40.1 Normal 38.8-50.0 [facility] anh 250 DO Work Phone: [phone] 13.8\S\13.8 Normal 13.0-17.0 [facility] anh 250 DO Work Phone: [phone] 4.03\S\4.03 Normal 3.90-5.60 [facility] anh 250 DO Work Phone: [phone] 6.0\S\6.0 Normal 4.1-10.5 [facility] anh 250 DO Work Phone: > 60.0 Normal -[facility] anh 250 DO Work Phone: Nucleated erythrocytes [Pres ence] in Blood by Automated countOrdered By: Koby Mcclain on 12-03-2022 Nucleated RBC Auto Ql (Bld) 0.1 /100{WBC} 0-0.5 [facility] Platelet mean volume Auto (B ld) [Entitic vol]Ordered By: Koby Mcclain on 12-03-2022 Platelet mean volume (Bld) [Entitic vol] 8.2 fL 6.6-10.1 [facility] Platelet poor plasma interna tional normalized ratio (INR) by coagulation assay (relatOrdered By: Koby Mcclain on 12-03-2022 INR Coag (PPP) [Relative time] 1.0 {INR} [facility] Comment on above: INR Therapeutic Rang e A) Pre- and Peroperative OAT started two weeks before surgery. NOT HIP SURGERY: 1.5 - 2.5 HIP SURGERY: 2 - 3B) Primary and secondary prevention of venous THROMBOSIS: 2 - 3C) Active venous thrombosis, pulmonary embolismand prevention of recurrent venous thrombosis: 2 - 3D) Prevention of arterial thromboembolismincluding patients with mechanical heart valves: 3 - 4.5 Platelets Auto (Bld) [#/Vol] Ordered By: Koby Mcclain on 12-03-2022 Platelets (Bld) [#/Vol] 204 10*3/uL 150-450 [facility] Potassium [Moles/volume] in Serum or PlasmaOrdered By: Koby Mcclain on 12-03-2022 Potassium [Moles/Vol] 4.4 mmol/L 3.5-5.1 [facility] RBC Auto (Bld) [#/Vol]Ordere d By: Koby Mcclain on 12-03-2022 RBC (Bld) [#/Vol] 4.03 10*6/uL 3.90-5.60 [facility] Serum or plasma anion gap de terminationOrdered By: Koby Mcclain on 12-03-2022 Anion gap [Moles/Vol] 12.0 mmol/L 6.0-15.0 [facility] Serum or plasma high density lipoprotein (HDL) cholesterol measurementOrdered By: Koby Mcclain on 12-03-2022 Cholesterol in HDL [Mass/Vol] 46 mg/dL 29-71 [facility] Comment on above: HDL CHOL ATP-III CLA SSIFICATION Cardiovascular RiskHDL > or equal to 60 mg/dL LOWHDL < 40 mg/dL HIGH Serum or plasma total choles terol/high density lipoprotein (HDL) cholesterol mass ratOrdered By: Koby Mcclain on 12-03-2022 Cholesterol.total/Chol esterol in HDL [Mass ratio] 2.8 {ratio} <5.0 [facility] Sodium [Moles/volume] in Ser um or PlasmaOrdered By: Koby Mcclain on 12-03-2022 Sodium [Moles/Vol] 140 mmol/L 136-145 [facility] Triglyceride [Mass/volume] i n Serum or PlasmaOrdered By: Koby Mcclain on 12-03-2022 Triglyceride [Mass/Vol] 157 mg/dL 0-149 [facility] Comment on above: TRIG ATP III CLASSIF ICATIONTRIG less than 150 mg/dL NormalTRIG 150-199 mg/dL Borderline highTRIG 200-500 mg/dL High TRIG greater than 500 mg/dL Very highStandard traceable to the Center for Disease Conrtrol and Prevention (CDC) test method. Urea nitrogen [Mass/volume] in Serum or PlasmaOrdered By: Koby Mcclain on 12-03-2022 Urea nitrogen [Mass/Vol] 15 mg/dL 7-25 [facility] WBC Auto (Bld) [#/Vol]Ordere d By: Koby Mcclain on 12-03-2022 WBC (Bld) [#/Vol] 6.0 10*3/uL 4.1-10.5 [facility] Office Visit (Cardiology)on 12-02-2022 Follow-up visit Diagnoses/Problems Assessed Dizziness (780.4) (R42) Hyperlipidemia (272.4) (E78.5) Hypertension (401.9) (I10) Pacemaker (V45.01) (Z95.0) SSS (sick sinus syndrome) (427.81) (I49.5) Overweight with body mass index (BMI) of 28 to 28.9 in adult (278.02,V85.24) (E66.3,Z68.28) Dyspnea on exertion (786.09) (R06.09) ASCVD (arteriosclerotic cardiovascular disease) (429.2,440.9) (I25.10) Former smoker (V15.82) (Z87.891) quit 1966 Angina, class III (413.9) (I20.9) History of PTCA (V45.82) (Z98.61) Orders Angina, class III Renew: Nitroglycerin 0.4 MG Sublingual Tablet Sublingual; DISSOLVE 1 TABLET UNDER THE TONGUE NEEDED FOR CHEST PAIN Angina, class III, ASCVD (arteriosclerotic cardiovascular disease), Dizziness, Dyspnea on exertion, Hypertension, SSS (sick sinus syndrome) Cardiac Catherization; Status:Active - Retrospective Authorization; Requested for:02Dec2022; ASCVD (arteriosclerotic cardiovascular disease) Renew: Clopidogrel Bisulfate 75 MG Oral Tablet; TAKE 1 TABLET DAILY ASCVD (arteriosclerotic cardiovascular disease), Hyperlipidemia Renew: Rosuvastatin Calcium 40 MG Oral Tablet; TAKE 1 TABLET DAILY Overweight with body mass index (BMI) of 28 to 28.9 in adult Healthy Weight Tips; Status:Complete - Retrospective Authorization; Done: 02Dec2022 Some eating tips that can help you lose weight.; Status:Complete - Retrospective Authorization; Done: 02Dec2022 SocHx: Former smoker Tobacco Use Screening; Status:Complete; Done: 02Dec2022 Unlinked Stop: Metoprolol Succinate ER 25 MG Oral Tablet Extended Release 24 Hour Patient Instructions Please bring all medicines, vitamins, and herbal supplements with you when you come to the office. Prescriptions will not be filled unless you are compliant with your follow up appointments or have a follow up appointment scheduled as per instruction of your physician. Refills should be requested at the time of your visit. Follow up after testing completed Heart cath scheduled Chief Complaint ALEXANDRIA DODSON is being seen for an annual follow-up of. History of Present Illness Patient returns in follow-up of problems as noted. Over the last year he has continued to have worsening shortness of breath with exertion. He also describes anginal chest discomfort provoked with mild activity and relieved with rest. From time to time he is taken nitroglycerin he believes it helps. He reminds me that he had coronary intervention several years ago. He was advised by the angiographer that the results were suboptimal and he is anxious regarding restenosis of the previously stented vessels. 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 In light of his accelerated anginal symptomatology at low workloads which is relieved with rest and/or nitroglycerin I believe he is probably had progression of his coronary disease, as before, and I recommended coronary angiography. Review of his medical therapy demonstrates his risk factors have been well controlled. He no longer smokes and both blood pressure and cholesterol are adequately managed. He is on ideal and/or optimize medical therapy and there does not appear to be any opportunity to improve his symptom management and hence I recommend angiographic evaluation I did review with him, also, recent pacemaker checks and they demonstrate satisfactory device performance and no breakthrough arrhythmias that require intervention. Surgical History Problems History of Back surgery History of Cardiac catheterization History of Cataract surgery History of Complete colonoscopy History of Hernia repair History of Pacemaker insertion History of Percutaneous transluminal coronary angioplasty Current Meds Medication NameInstruction Citalopram Hydrobromide 20 MG Oral TabletTAKE 1 TABLET DAILY. Clopidogrel Bisulfate 75 MG Oral TabletTAKE 1 TABLET DAILY. Co Q 10 100 MG Oral CapsuleTAKE 1 CAPSULE TWICE DAILY. Famotidine 40 MG Oral TabletTAKE 1 TABLET Daily Glucosamine HCl - 1500 MG Oral TabletTAKE DIRECTED. Lutein 20 MG Oral CapsuleTake 1 capsule twice daily Metoprolol Succinate ER 25 MG Oral Tablet Extended Release 24 HourTAKE 1 TABLET DAILY. MSM 1500 MG TABSTAKE DIRECTED PER PACKAGE INSTRUCTIONS. Nitroglycerin 0.4 MG Sublingual Tablet SublingualDISSOLVE 1 TABLET UNDER THE TONGUE NEEDED FOR CHEST PAIN. Rosuvastatin Calcium 40 MG Oral TabletTAKE 1 TABLET DAILY. Vitamin B12 1000 MCG Oral Tablet Extended ReleaseTAKE 1 TABLET DAILY DIRECTED. Vitamin D3 25 MCG (1000 UT) Oral TabletTAKE 2 TABLET Daily Allergies Medication Biaxin TABS Recorded By: Anuja Qureshi; 09/06/2021 9:57:16 AM clarithromycin Allergy; Recorded By: Anuja Qureshi; 09/06/2021 9:47:12 AM Erythromycin Base TABS Recorded By: Anuja Qureshi; 09/06/2021 9:57:16 AM erythromycin Allergy; Recorded By: Anuja Qureshi; 09/06/2021 9:47:13 AM Social History Problems Alcohol use (V49.89) (Z78.9) occaionlly (more content not included)... Normal [employer] Tobacco Screening.on 023 Adult depression screening assessment No [facility] [employer] 250 DO Work Phone: Fall risk assessment a) No falls within the last year [facility] [employer] 250 DO Work Phone: Tobacco use status CPHS b) No [facility] [employer] 250 DO Work Phone: LIPID PROFILEon 09-29-2022 CHOL-HDL RATIO NORM SEE BELOW Normal [facility] Comment on above: Result Comment: 3.3 - 4.4 LOW RISK 4.4 - 7.1 AVERAGE RISK 7.1 - 11.0 MODERATE RISK >11.0 HIGH RISK Performed By: #### M CRR #### [facility] [address] [address] [address] Virgil Escalante Cholesterol [Mass/Vol] 129 mg/dL Normal <=[address] [facility] Comment on above: Performed By: #### M CRR #### [facility] [address] [address] [address] Virgil Escalante Cholesterol in HDL [Mass/Vol] 60 mg/dL Normal 40-60 [facility] Comment on above: Performed By: #### M CRR #### [facility] [address] [address] [address] Virgil Escalante Cholesterol in LDL [Mass/Vol] 44.0 mg/dL Normal [facility] Comment on above: Performed By: #### M CRR #### [facility] [address] [address] [address] Virgil Escalante Cholesterol.total/Chol esterol in HDL [Mass ratio] 2.2 {ratio} Normal [facility] Comment on above: Performed By: #### M CRR #### [facility] [address] [address] [address] Virgil Escalante HDL NORMAL > or = 60 mg/dl - LO W CARDIOVASCULAR RISK <40 mg/dl - HIGH CARDIOVASCULAR RISK Normal [facility] Comment on above: Performed By: #### M CRR #### [facility] [address] [place] [address] Dr. Virgil Escalante LDL CALC NORMAL SEE BELOW Normal [facility] Comment on above: Result Comment: <100 mg/dl OPTIMAL 100 - 129 mg/dl NEAR OR ABOVE OPTIMAL 130 - 159 mg/dl BORDERLINE HIGH 160 - 189 mg/dl HIGH >190 mg/dl VERY HIGH Performed By: #### M CRR #### [facility] [address] [place] [address] Dr. Virgil Escalante Triglyceride [Mass/Vol] 125 mg/dL Normal <=150 [facility] Comment on above: Performed By: #### M CRR #### [facility] [address] [place] [address] Dr. Virgil Escalante VLDL CALC 25.0 mg/dL Normal [facility] Comment on above: Performed By: #### M CRR #### [facility] [address] [place] [address] Dr. Virgil Escalante MICROALB CREAT RATIO RANDOMo n 09-29-2022 mALB 1.0 mg/L Normal <=30.0 [facility] Comment on above: Performed By: #### M CRR #### [facility] [address] [place] [address] Dr. Virgil CHANB CR RATIO 5.4 mg/g Normal 0.0-29.9 [facility] Comment on above: Performed By: #### M CRR #### [facility] [address] [place] [address] Dr. Virgil Escalante MALB CR RATIO RANGE SEE BELOW Normal [facility] Comment on above: Result Comment: NO M ICROALBUMINURIA 0-29 MG/G CLINICAL MICROALBUMINURIA 30-300 MG/G MACROALBUMINURIA >300 MG/G Performed By: #### M CRR #### [facility] [address] [place] [address] Dr. Virgil Escalante URINE CREAT 184.89 mg/dL Normal 20.00-300. 00 [facility] Comment on above: Performed By: #### M CRR #### [facility] [address] [place] [address] Dr. Virgil Escalante PROF CHEM 8 (BAS METB)on Anion gap [Moles/Vol] 11.3 mmol/L Normal Th [facility] Comment on above: Performed By: #### L IPID, BMP #### [facility] [address] [place] [address] Dr. Virgil Escalante Calcium [Mass/Vol] 8.8 mg/dL Normal 8.5-10.1 [facility] Comment on above: Performed By: #### L IPID, BMP #### [facility] [address] [place] [address] Dr. Virgil Escalante Chloride [Moles/Vol] 104 mmol/L Normal 98-107 [facility] Comment on above: Performed By: #### L IPID, BMP #### [facility] [address] [place] [address] Dr. Virgil Escalante CO2 [Moles/Vol] 27.7 mmol/L Normal 21.0-32.0 [facility] Comment on above: Performed By: #### L IPID, BMP #### [facility] [address] [place] [address] Dr. Virgil Escalante Creatinine [Mass/Vol] 1.02 mg/dL Normal 0.70-1.30 [facility] Comment on above: Performed By: #### L IPID, BMP #### [facility] [address] [place] [address] Dr. Virgil Escalante EGFR-AF URUGUAYAN >60 Normal >=60 [facility] Comment on above: Performed By: #### L IPID, BMP #### [facility] [address] [place] [address] Dr. Virgil Escalante EGFR-NON AF URUGUAYAN >60 Normal >=60 [facility] Comment on above: Performed By: #### L IPID, BMP #### [facility] [address] [place] [address] Dr. Virgil Escalante Glucose [Mass/Vol] 98 mg/dL Normal 74-106 [facility] Comment on above: Performed By: #### L IPID, BMP #### [facility] [address] [place] [address] Dr. Virgil Escalante Potassium [Moles/Vol] 4.0 mmol/L Normal 3.5-5.1 [facility] Comment on above: Performed By: #### L IPID, BMP #### [facility] [address] [place] [address] Dr. Virgil Escalante Sodium [Moles/Vol] 139 mmol/L Normal 136-145 [facility] Comment on above: Performed By: #### L IPID, BMP #### [facility] [address] [place] [address] Dr. Virgil Escalante Urea nitrogen [Mass/Vol] 13.0 mg/dL Normal 7.0-18.0 [facility] Comment on above: Performed By: #### L IPID, BMP #### [facility] [address] [place] [address] Dr. Virgil Escalante Urea nitrogen/Creatinine [Mass ratio] 12.7 mg/mg Normal [facility] Comment on above: Performed By: #### L IPID, BMP #### [facility] [address] [place] [address] Dr. Virgil Escalante UA RANDOMon 09-29-2022 Bilirubin Ql (U) Negative Normal NEGATIVE [facility] Comment on above: Performed By: #### U A #### [facility] [address] [place] [address] Dr. Virgil Escalante Clarity (U) CLEAR Normal CLEAR [facility] Comment on above: Performed By: #### U A #### [facility] [address] [place] [address] Dr. Virgil Escalante Color (U) YELLOW Normal YELLOW [facility] Comment on above: Performed By: #### U A #### [facility] [address] [place] [address] Dr. Virgil Escalante Glucose Ql (U) Negative Normal NEGATIVE [facility] Comment on above: Performed By: #### U A #### [facility] [address] [place] [address] Dr. Virgil Escalante Hemoglobin Ql (U) Negative Normal NEGATIVE [facility] Comment on above: Performed By: #### U A #### [facility] [address] [place] [address] Dr. Virgil Escalante Ketones Ql (U) Negative Normal NEGATIVE [facility] Comment on above: Performed By: #### U A #### [facility] [address] [place] [address] Dr. Virgil Escalante LEUKOCYTES Negative Normal NEGATIVE [facility] Comment on above: Performed By: #### U A #### [facility] [address] [place] [address] Dr. Virgil Escalante Nitrite Ql (U) Negative Normal NEGATIVE [facility] Comment on above: Performed By: #### U A #### [facility] [address] [place] [address] Dr. Virgil Escalante pH (U) 6.5 [pH] Normal 5-9 [facility] Comment on above: Performed By: #### U A #### [facility] [address] [place] [address] Dr. Virgil Escalante SPEC GRAVITY 1.020 Normal 1.005-<=1. 025 [facility] Comment on above: Performed By: #### U A #### [facility] [address] [place] [address] Dr. Virgil Escalante UA PROTEIN Negative Normal NEGATIVE/ TRACE [facility] Comment on above: Performed By: #### U A #### [facility] [address] [place] [address] Dr. Virgil Escalante Urobilinogen Qn (U) 0.2 {Lilian'U}/dL Normal 0.2 - 1. 0 [facility] Comment on above: Performed By: #### U A #### [facility] [address] [place] [address] Dr. Virgil Escalante CBC AUTO DIFFon 04-30-2022 BASO # 0.0 103/ul Normal 0.0-0.1 [facility] Comment on above: Performed By: #### C BC #### [facility] [address] [place] [address] Dr. Virgil Escalante Basophils/100 WBC (Bld) 0.3 % Normal 0.2-2.0 [facility] Comment on above: Performed By: #### C BC #### [facility] [address] [place] [address] Dr. Virgil Escalante EO # 0.1 103/ul Normal 0.0-0.7 [facility] Comment on above: Performed By: #### C BC #### [facility] [address] [place] [address] Dr. Virgil Escalante Eosinophils/100 WBC (Bld) 1.5 % Normal 0.9-7.0 [facility] Comment on above: Performed By: #### C BC #### [facility] [address] [place] [address] Dr. Virgil Escalante Erythrocyte distribution width (RBC) [Ratio] 11.9 % Normal 11.0-15.0 [facility] Comment on above: Performed By: #### C BC #### [facility] [address] [place] [address] Dr. Virgil Escalante Hematocrit (Bld) [Volume fraction] 39.5 % Critically low 42.0-54.0 [facility] Comment on above: Performed By: #### C BC #### [facility] [address] [place] [address] Dr. Virgil Escalante Hemoglobin (Bld) [Mass/Vol] 13.8 g/dL Critically low 14.0-18.0 [facility] Comment on above: Performed By: #### C BC #### [facility] [address] [place] [address] Dr. Virgil Escalante IG # 0.01 10e3/ul Normal 0.00-0.03 [facility] Comment on above: Performed By: #### C BC #### [facility] [address] [place] [address] Dr. Virgil Escalante IG % 0.2 % Normal 0.0-0.5 [facility] Comment on above: Performed By: #### C BC #### [facility] [address] [place] [address] Dr. Virgil Escalante LYMPH # 1.0 103/ul Critically low 1.2-3.8 [facility] Comment on above: Performed By: #### C BC #### [facility] [address] [place] [address] Dr. Virgil Escalante Lymphocytes/100 WBC (Bld) 16.4 % Critically low 20.5-60.0 [facility] Comment on above: Performed By: #### C BC #### [facility] [address] [place] [address] Dr. Virgil Escalante MANUAL DIFF REQ NO Normal [facility] Comment on above: Performed By: #### C BC #### [facility] [address] [place] [address] Dr. Virgil Escalante MCH (RBC) [Entitic mass] 34.2 pg Critically high 25.9-34.0 [facility] Comment on above: Performed By: #### C BC #### [facility] [address] [place] [address] Dr. Virgil Escalante MCHC (RBC) [Mass/Vol] 34.9 g/dL Normal 29.9-35.2 [facility] Comment on above: Performed By: #### C BC #### [facility] [address] [place] [address] Dr. Virgil Escalante MCV (RBC) [Entitic vol] 98.0 fL Critically high 80.0-94.0 [facility] Comment on above: Performed By: #### C BC #### [facility] [address] [place] [address] Dr. Virgil Escalante MONO # 0.6 103/ul Normal 0.3-0.8 [facility] Comment on above: Performed By: #### C BC #### [facility] [address] [place] [address] Dr. Virgil Escalante Monocytes/100 WBC (Bld) 10.3 % Normal 1.7-12.0 [facility] Comment on above: Performed By: #### C BC #### [facility] [address] [place] [address] Dr. Virgil Escalante NEUT # 4.3 103/ul Normal 1.4-6.5 [facility] Comment on above: Performed By: #### C BC #### [facility] [address] [place] [address] Dr. Virgil Escalante Neutrophils/100 WBC (Bld) 71.3 % Normal 43.0-75.0 [facility] Comment on above: Performed By: #### C BC #### [facility] [address] [place] [address] Dr. Virgil Escalante Platelet mean volume (Bld) [Entitic vol] 9.9 fL Normal 9.5-13.5 [facility] Comment on above: Performed By: #### C BC #### [facility] [address] [place] [address] Dr. Virgil Escalante PLT 207 103/ul Normal 150-450 [facility] Comment on above: Performed By: #### C BC #### [facility] [address] [place] [address] Dr. Virgil Escalante RBC 4.03 106/ul Critically low 4.70-6.10 [facility] Comment on above: Performed By: #### C BC #### [facility] [address] [place] [address] Dr. Virgil Escalante WBC 6.1 103/ul Normal 4.0-11.0 [facility] Comment on above: Performed By: #### C BC #### [facility] [address] [place] [address] Dr. Virgil Escalante PROF CHEM 8 (BAS METB)on Anion gap [Moles/Vol] 13.9 mmol/L Normal Th [facility] Comment on above: Performed By: #### B MP #### [facility] [address] [place] [address] Dr. Virgil Escalante Calcium [Mass/Vol] 9.0 mg/dL Normal 8.5-10.1 [facility] Comment on above: Performed By: #### B MP #### [facility] [address] [place] [address] Dr. Virgil Escalante Chloride [Moles/Vol] 105 mmol/L Normal 98-107 [facility] Comment on above: Performed By: #### B MP #### [facility] [address] [address] [address] Virgil Escalante CO2 [Moles/Vol] 26.0 mmol/L Normal 21.0-32.0 [facility] Comment on above: Performed By: #### B MP #### [facility] [address] [address] [address] Virgil Escalante Creatinine [Mass/Vol] 1.00 mg/dL Normal 0.70-1.30 [facility] Comment on above: Performed By: #### B MP #### [facility] [address] [address] [address] Virgil Escalante EGFR-AF URUGUAYAN >60 Normal >=60 [facility] Comment on above: Performed By: #### B MP #### [facility] [address] [place] [address] Dr. Virgil Escalante EGFR-NON AF URUGUAYAN >60 Normal >=60 [facility] Comment on above: Performed By: #### B MP #### [facility] [address] [place] [address] Dr. Virgil Escalante Glucose [Mass/Vol] 92 mg/dL Normal 74-106 [facility] Comment on above: Performed By: #### B MP #### [facility] [address] [place] [address] Dr. Virgil Escalante Potassium [Moles/Vol] 3.9 mmol/L Normal 3.5-5.1 [facility] Comment on above: Performed By: #### B MP #### [facility] [address] [place] [address] Dr. Virgil Escalante Sodium [Moles/Vol] 141 mmol/L Normal 136-145 [facility] Comment on above: Performed By: #### B MP #### [facility] [address] [address] [address] Virgil Escalante Urea nitrogen [Mass/Vol] 14.0 mg/dL Normal 7.0-18.0 [facility] Comment on above: Performed By: #### B MP #### [facility] [address] [place] [address] Dr. Virgil Escalante Urea nitrogen/Creatinine [Mass ratio] 14.0 mg/mg Normal [facility] Comment on above: Performed By: #### B MP #### [facility] [address] [place] [address] Dr. Virgil Escalante VITAMIN B12on 04-30-2022 Cobalamin (Vitamin B12) [Mass/Vol] 1431.0 pg/mL Critically high 193.0-986. 0 [facility] Comment on above: Performed By: #### V ITB12 #### [facility] [address] [place] [address] Dr. Virgil Escalante Tobacco Screening.on 022 Adult depression screening assessment No [facility] [employer] 250 DO Work Phone: Fall risk assessment a) No falls within the last year [facility] 250 DO Work Phone: Tobacco use status CPHS b) No [facility] [employer] 250 DO Work Phone: CBC AUTO DIFFon 10-28-2021 BASO # 0.0 103/ul Normal 0.0-0.1 [facility] Comment on above: Performed By: #### C BC #### [facility] [address] [place] [address] Dr. Virgil Escalante Basophils/100 WBC (Bld) 0.3 % Normal 0.2-2.0 [facility] Comment on above: Performed By: #### C BC #### [facility] [address] [place] [address] Dr. Virgil Escalante EO # 0.2 103/ul Normal 0.0-0.7 [facility] Comment on above: Performed By: #### C BC #### [facility] [address] [place] [address] Dr. Virgil Escalante Eosinophils/100 WBC (Bld) 3.0 % Normal 0.9-7.0 [facility] Comment on above: Performed By: #### C BC #### [facility] [address] [place] [address] Dr. Virgil Escalante Erythrocyte distribution width (RBC) [Ratio] 12.4 % Normal 11.0-15.0 [facility] Comment on above: Performed By: #### C BC #### [facility] [address] [place] [address] Dr. Virgil Escalante Hematocrit (Bld) [Volume fraction] 41.3 % Critically low 42.0-54.0 [facility] Comment on above: Performed By: #### C BC #### [facility] [address] [place] [address] Dr. Virgil Escalante Hemoglobin (Bld) [Mass/Vol] 13.8 g/dL Critically low 14.0-18.0 [facility] Comment on above: Performed By: #### C BC #### [facility] [address] [place] [address] Dr. Virgil Escalante IG # 0.02 10e3/ul Normal 0.00-0.03 [facility] Comment on above: Performed By: #### C BC #### [facility] [address] [place] [address] Dr. Virgil Escalante IG % 0.3 % Normal 0.0-0.5 [facility] Comment on above: Performed By: #### C BC #### [facility] [address] [place] [address] Dr. Virgil Escalante LYMPH # 1.1 103/ul Critically low 1.2-3.8 [facility] Comment on above: Performed By: #### C BC #### [facility] [address] [place] [address] Dr. Virgil Escalante Lymphocytes/100 WBC (Bld) 16.5 % Critically low 20.5-60.0 [facility] Comment on above: Performed By: #### C BC #### [facility] [address] [place] [address] Dr. Virgil Escalante MANUAL DIFF REQ NO Normal [facility] Comment on above: Performed By: #### C BC #### [facility] [address] [place] [address] Dr. Virgil Escalante MCH (RBC) [Entitic mass] 33.3 pg Normal 25.9-34.0 [facility] Comment on above: Performed By: #### C BC #### [facility] [address] [place] [address] Dr. Virgil Escalante MCHC (RBC) [Mass/Vol] 33.4 g/dL Normal 29.9-35.2 [facility] Comment on above: Performed By: #### C BC #### [facility] [address] [place] [address] Dr. Virgil Escalante MCV (RBC) [Entitic vol] 99.5 fL Critically high 80.0-94.0 [facility] Comment on above: Performed By: #### C BC #### [facility] [address] [place] [address] Dr. Virgil Escalante MONO # 0.8 103/ul Normal 0.3-0.8 [facility] Comment on above: Performed By: #### C BC #### [facility] [address] [place] [address] Dr. Virgil Escalante Monocytes/100 WBC (Bld) 12.2 % Critically high 1.7-12.0 [facility] Comment on above: Performed By: #### C BC #### [facility] [address] [place] [address] Dr. Virgil Escalante NEUT # 4.6 103/ul Normal 1.4-6.5 [facility] Comment on above: Performed By: #### C BC #### [facility] [address] [place] [address] Dr. Virgil Escalante Neutrophils/100 WBC (Bld) 67.7 % Normal 43.0-75.0 [facility] Comment on above: Performed By: #### C BC #### [facility] [address] [place] [address] Dr. Virgil Escalante Platelet mean volume (Bld) [Entitic vol] 9.8 fL Normal 9.5-13.5 [facility] Comment on above: Performed By: #### C BC #### [facility] [address] [place] [address] Dr. Virgil Escalante PLT 197 103/ul Normal 150-450 [facility] Comment on above: Performed By: #### C BC #### [facility] [address] [address] [address] Virgil Escalante RBC 4.15 106/ul Critically low 4.70-6.10 [facility] Comment on above: Performed By: #### C BC #### [facility] [address] [address] [address] Virgil Escalante WBC 6.7 103/ul Normal 4.0-11.0 [facility] Comment on above: Performed By: #### C BC #### [facility] [address] [address] [address] Virgil Escalante LIPID PROFILEon 10-28-2021 CHOL-HDL RATIO NORM SEE BELOW Normal [facility] Comment on above: Result Comment: 3.3 - 4.4 LOW RISK 4.4 - 7.1 AVERAGE RISK 7.1 - 11.0 MODERATE RISK >11.0 HIGH RISK Performed By: #### U MIGUEL, CMP, LIPID #### [facility] [address] [address] [address] Virgil Escalnate Cholesterol [Mass/Vol] 129 mg/dL Normal <=[address] [facility] Comment on above: Performed By: #### U MIGUEL, CMP, LIPID #### [facility] [address] [address] [address] Virgil Escalante Cholesterol in HDL [Mass/Vol] 56 mg/dL Normal [facility] Comment on above: Performed By: #### U MIGUEL, CMP, LIPID #### [facility] [address] [address] [address] Virgil Escalante Cholesterol in LDL [Mass/Vol] 47.2 mg/dL Normal [facility] Comment on above: Performed By: #### U MIGUEL, CMP, LIPID #### [facility] [address] [address] [address] Virgil Escalante Cholesterol.total/Chol esterol in HDL [Mass ratio] 2.3 {ratio} Normal [facility] Comment on above: Performed By: #### U MIGUEL, CMP, LIPID #### [facility] [address] [address] [address] Virgil Escalante HDL NORMAL > or = 60 mg/dl - LO W CARDIOVASCULAR RISK <40 mg/dl - HIGH CARDIOVASCULAR RISK Normal [facility] Comment on above: Performed By: #### U MIGUEL, CMP, LIPID #### [facility] [address] [address] [address] Virgil Escalante LDL CALC NORMAL SEE BELOW Normal [facility] Comment on above: Result Comment: <100 mg/dl OPTIMAL 100 - 129 mg/dl NEAR OR ABOVE OPTIMAL 130 - 159 mg/dl BORDERLINE HIGH 160 - 189 mg/dl HIGH >190 mg/dl VERY HIGH Performed By: #### U MIGUEL, CMP, LIPID #### [facility] [address] [address] [address] Virgil Escalante Triglyceride [Mass/Vol] 129 mg/dL Normal <=150 [facility] Comment on above: Performed By: #### U MIGUEL, CMP, LIPID #### [facility] [address] [address] [address] Virgil Escalante VLDL CALC 25.8 mg/dL Normal [facility] Comment on above: Performed By: #### U MIGUEL, CMP, LIPID #### [facility] [address] [place] [address] Dr. Virgil Escalante PROF 14(COMP METB)on 022 Albumin [Mass/Vol] 3.6 g/dL Normal 3.5-5.0 [facility] Comment on above: Performed By: #### U MIGUEL, CMP, LIPID #### [facility] [address] [address] [address] Virgil Escalante Albumin/Globulin [Mass ratio] 1.1 {ratio} Normal [facility] Comment on above: Performed By: #### U MIGUEL, CMP, LIPID #### [facility] [address] [address] [address] Virgil Escalante ALP [Catalytic activity/Vol] 63 U/L Normal 38-126 [facility] Comment on above: Performed By: #### U MIGUEL, CMP, LIPID #### [facility] [address] [address] [address] Virgil Escalante ALT [Catalytic activity/Vol] 28 U/L Normal 21-72 [facility] Comment on above: Performed By: #### U MIGUEL, CMP, LIPID #### [facility] [address] [address] [address] Virgil Escalante Anion gap [Moles/Vol] 7.6 mmol/L Normal [facility] Comment on above: Performed By: #### U MIGUEL, CMP, LIPID #### [facility] [address] [address] [address] Virgil Escalante AST [Catalytic activity/Vol] 19 U/L Normal 17-59 [facility] Comment on above: Performed By: #### U MIGUEL, CMP, LIPID #### [facility] [address] [place] [address] Dr. Virgil Escalante Bilirubin [Mass/Vol] 1.0 mg/dL Normal 0.2-1.3 [facility] Comment on above: Performed By: #### U MIGUEL, CMP, LIPID #### [facility] [address] [place] [address] Dr. Virgil Escalante Calcium [Mass/Vol] 9.0 mg/dL Normal 8.4-10.2 [facility] Comment on above: Performed By: #### U MIGUEL, CMP, LIPID #### [facility] [address] [place] [address] Dr. Virgil Escalante Chloride [Moles/Vol] 105 mmol/L Normal 98-107 [facility] Comment on above: Performed By: #### U MIGUEL, CMP, LIPID #### [facility] [address] [place] [address] Dr. Virgil Escalante CO2 [Moles/Vol] 30.4 mmol/L Critically high 22.0-30.0 [facility] Comment on above: Performed By: #### U MIGUEL, CMP, LIPID #### [facility] [address] [place] [address] Dr. Virgil Escalante Creatinine [Mass/Vol] 0.94 mg/dL Normal 0.66-1.25 [facility] Comment on above: Performed By: #### U MIGUEL, CMP, LIPID #### [facility] [address] [address] [address] Virgil Escalante EGFR-AF URUGUAYAN >60 Normal >=60 [facility] Comment on above: Performed By: #### U MIGUEL, CMP, LIPID #### [facility] [address] [address] [address] Virgil Escalante EGFR-NON AF URUGUAYAN >60 Normal >=60 [facility] Comment on above: Performed By: #### U MIGUEL, CMP, LIPID #### [facility] [address] [address] [address] Virgil Escalante Globulin (S) [Mass/Vol] 3.3 g/dL Normal [facility] Comment on above: Performed By: #### U MIGUEL, CMP, LIPID #### [facility] [address] [address] [address] Virgil Escalante Glucose [Mass/Vol] 94 mg/dL Normal 74-106 [facility] Comment on above: Performed By: #### U MIGUEL, CMP, LIPID #### [facility] [address] [address] [address] Virgil Escalante Potassium [Moles/Vol] 4.0 mmol/L Normal 3.4-5.0 [facility] Comment on above: Performed By: #### U MIGUEL, CMP, LIPID #### [facility] [address] [address] [address] Virgil Escalante Protein [Mass/Vol] 6.9 g/dL Normal 6.1-8.2 [facility] Comment on above: Performed By: #### U MIGUEL, CMP, LIPID #### [facility] [address] [address] [address] Virgil Escalante Sodium [Moles/Vol] 139 mmol/L Normal 137-145 [facility] Comment on above: Performed By: #### U MIGUEL, CMP, LIPID #### [facility] [address] [address] [address] Virgil Escalante Urea nitrogen [Mass/Vol] 16.0 mg/dL Normal 9.0-20.0 [facility] Comment on above: Performed By: #### U MIGUEL, CMP, LIPID #### [facility] [address] [place], [place] [address] Dr. Virgil Escalante Urea nitrogen/Creatinine [Mass ratio] 17.0 mg/mg Normal [facility] Comment on above: Performed By: #### U MIGUEL, CMP, LIPID #### [facility] [address] [place], [place] [address] Dr. Virgil sEcalante URIC ACID SERUMon 10-28-2021 Urate [Mass/Vol] 4.8 mg/dL Normal 3.5-8.5 [facility] Comment on above: Performed By: #### U MIGUEL, CMP, LIPID #### [facility] [address] [place], [place] [address] Dr. Virgil Escalante Cardiac Stress Teston 2021 Cardiac Stress Test MP-No [facility] [employer] 250 DO Work Phone: Tobacco Screening.on 021 Fall risk assessment b) One or more fall s in the last year [facility] [employer] 250 DO Work Phone: Tobacco use status CPHS b) No [facility] 250 DO Work Phone: Vital Signs Date Time Vital Sign Value Performing Clinician Facility 04-26-2024 09:35-0400 Body height 177.3 cm Carson Monroe MD Work Phone: [facility] 04-26-2024 09:35-0400 Body mass index (BMI) [Ratio] 28.15 kg/m2 Carson Monroe MD Work Phone: [facility] 04-26-2024 09:35-0400 Body temperature 97.7 [degF] Carson Monroe MD Work Phone: [facility] 04-26-2024 09:35-0400 Body weight 88.5 kg Carson Monroe MD Work Phone: [facility] 04-26-2024 09:35-0400 Diastolic blood pressure 62 mm[Hg] Carson Monroe MD Work Phone: [facility] Comment on above: provider notified 04-26-2024 09:35-0400 Heart rate 60 /min Carson Monroe MD Work Phone: [facility] 04-26-2024 09:35-0400 Respiratory rate 16 /min Carson Monroe MD Work Phone: [facility] 04-26-2024 09:35-0400 SaO2% (BldA) [Mass fraction] 98 % Carson Monroe MD Work Phone: [facility] 04-26-2024 09:35-0400 Systolic blood pressure 151 mm[Hg] Carson Monroe MD Work Phone: [facility] Comment on above: provider notified 04-26-2024 08:50-0400 Diastolic blood pressure 72 mm[Hg] Devaughn Farias MD Work Phone: [facility] 04-26-2024 08:50-0400 Heart rate 60 /min Devaughn Farias MD Work Phone: [facility] 04-26-2024 08:50-0400 SaO2% (BldA) [Mass fraction] 96 % Devaughn Farias MD Work Phone: [facility] 04-26-2024 08:50-0400 Systolic blood pressure 161 mm[Hg] Devaughn Farias MD Work Phone: [facility] 04-26-2024 08:25-0400 Body temperature 96.8 [degF] Devaughn Farias MD Work Phone: [facility] 04-26-2024 08:25-0400 Respiratory rate 16 /min Devaughn Farias MD Work Phone: [facility] 04-26-2024 07:26-0400 Body height 177.8 cm Devaughn Farias MD Work Phone: [facility] 04-26-2024 07:26-0400 Body mass index (BMI) [Ratio] 28.12 kg/m2 Devaughn Farias MD Work Phone: [facility] 04-26-2024 07:26-0400 Body weight 88.91 kg Devaughn Farias MD Work Phone: [facility] 12-08-2023 15:50-0400 Heart rate 65 /min Devaughn Farias MD Work Phone: [facility] 12-08-2023 15:50-0400 Respiratory rate 18 /min Devaughn Farias MD Work Phone: [facility] 12-08-2023 15:50-0400 SaO2% (BldA) [Mass fraction] 98 % Devaughn Farias MD Work Phone: [facility] 12-08-2023 15:40-0400 Diastolic blood pressure 73 mm[Hg] Devaughn Farias MD Work Phone: [facility] 12-08-2023 15:40-0400 Systolic blood pressure 144 mm[Hg] Devaughn Farias MD Work Phone: [facility] 12-08-2023 14:54-0400 Body temperature 97 [degF] Devaughn Farias MD Work Phone: [facility] 12-08-2023 12:01-0400 Body height 177.8 cm Devaughn Farias MD Work Phone: [facility] 12-08-2023 12:01-0400 Body weight 82.1 kg Devaughn Farias MD Work Phone: [facility] 10-15-2023 14:15-0500 Body height 177.8 cm Jules Gallo Other [facility] 10-15-2023 14:15-0500 Body mass index (BMI) [Ratio] 26.69 kg/m2 Jules Gallo Other [employer] Other 10-15-2023 14:15-0500 Body weight 84.37 kg Jules Gallo Other [employer] Other 10-15-2023 14:15-0500 Body weight 84.36 kg DO Eloise Vance Work Phone: [facility] 10-15-2023 14:15-0500 Diastolic blood pressure 62 mm[Hg] Jules Gallo Other [facility] 10-15-2023 14:15-0500 Systolic blood pressure 118 mm[Hg] Jules Gallo Other [facility] 10-02-2023 14:21-0500 Body height 177.8 cm Koby Mcclain MD Work Phone: [facility] 10-02-2023 14:21-0500 Body mass index (BMI) [Ratio] 27.55 kg/m2 Koby Mcclain MD Work Phone: [facility] 10-02-2023 14:21-0500 Body weight 87.09 kg Koby Mcclain MD Work Phone: [facility] 10-02-2023 14:21-0500 Diastolic blood pressure 66 mm[Hg] Koby Mcclain MD Work Phone: [facility] 10-02-2023 14:21-0500 Heart rate 76 /min Koby Mcclain MD Work Phone: [facility] 10-02-2023 14:21-0500 Systolic blood pressure 116 mm[Hg] Koby Mcclain MD Work Phone: [facility] 08-04-2023 14:40-0500 Diastolic blood pressure 74 mm[Hg] DO Eloise Vance Work Phone: [facility] 08-04-2023 14:40-0500 Heart rate 63 /min DO Eloise Vance Work Phone: [facility] 08-04-2023 14:40-0500 Respiratory rate 16 /min DO Eloise Vance Work Phone: [facility] 08-04-2023 14:40-0500 SaO2% (BldA) [Mass fraction] 97 % DO Eloise Vance Work Phone: [facility] 08-04-2023 14:40-0500 Systolic blood pressure 147 mm[Hg] DO Eloise Vance Work Phone: [facility] 08-04-2023 12:32-0500 Body height 177.8 cm DO Eloise Vance Work Phone: [facility] 08-04-2023 12:32-0500 Body weight 86.18 kg DO Eloise Vance Work Phone: [facility] 07-22-2023 13:15-0400 Body height 177.8 cm Jules Carloslatisha Other [facility] [employer] Other 07-22-2023 13:15-0400 Body mass index (BMI) [Ratio] 26.83 kg/m2 Jules Gallo Other [employer] [facility] [employer] Other 07-22-2023 13:15-0400 Body weight 84.82 kg Jules Brianamarina Other [employer] Other 07-22-2023 13:15-0400 Diastolic blood pressure 80 mm[Hg] Jules Gallo Other [employer] Other 07-22-2023 13:15-0400 Systolic blood pressure 136 mm[Hg] Jules Gallo Other [employer] Other 03-16-2023 10:55-0400 Body height 177.8 cm [facility] DO Work Phone: 03-16-2023 10:55-0400 Body mass index (BMI) [Ratio] 27.28 kg/m2 Eloise Vance Work Phone: [facility] 250 DO Work Phone: 03-16-2023 10:55-0400 Body surface area Derived from formula 2.04 m2 Eloise Vance Work Phone: [facility] 250 DO Work Phone: 03-16-2023 10:55-0400 Body weight 86.24 kg Eloise Vance Work Phone: [facility] 250 DO Work Phone: 03-16-2023 10:55-0400 Diastolic blood pressure 64 mm[Hg] Eloise Vance Work Phone: [facility] 250 DO Work Phone: 03-16-2023 10:55-0400 Heart rate 62 /min Eloise Vance Work Phone: [facility] 250 DO Work Phone: 03-16-2023 10:55-0400 Systolic blood pressure 118 mm[Hg] Eloise Vance Work Phone: [facility] 250 DO Work Phone: 02-09-2023 15:03-0400 Diastolic blood pressure 71 mm[Hg] DO Eloise Vance Work Phone: [facility] 02-09-2023 15:03-0400 Heart rate 65 /min DO Eloise Vance Work Phone: [facility] 02-09-2023 15:03-0400 Respiratory rate 16 /min DO Eloise Vance Work Phone: [facility] 02-09-2023 15:03-0400 SaO2% (BldA) [Mass fraction] 97 % DO Eloise Vance Work Phone: [facility] 02-09-2023 15:03-0400 Systolic blood pressure 156 mm[Hg] DO Eloise Vance Work Phone: [facility] 02-09-2023 07:48-0400 Body height 177.8 cm DO Eloise Vance Work Phone: [facility] 02-09-2023 07:48-0400 Body temperature 97.9 [degF] DO Eloise Vance Work Phone: [facility] 02-09-2023 07:48-0400 Body weight 87 kg DO Eloise Vance Work Phone: [facility] 01-12-2023 09:18-0400 Body height 177.8 cm Eloise Saldañaarely Work Phone: [facility] 250 DO Work Phone: 01-12-2023 09:18-0400 Body mass index (BMI) [Ratio] 27.69 kg/m2 Eloise Rubyxuan Work Phone: [facility] 250 DO Work Phone: 01-12-2023 09:18-0400 Body surface area Derived from formula 2.06 m2 Eloise Rubyxuan Work Phone: [facility] 250 DO Work Phone: 01-12-2023 09:18-0400 Body weight 87.54 kg Eloise Rubyxuan Work Phone: [facility] 250 DO Work Phone: 01-12-2023 09:18-0400 Diastolic blood pressure 60 mm[Hg] Eloise Jackie Rubyxuan Work Phone: [facility] 250 DO Work Phone: 01-12-2023 09:18-0400 Heart rate 72 /min Eloise Vance Work Phone: [facility] 250 DO Work Phone: 01-12-2023 09:18-0400 Systolic blood pressure 120 mm[Hg] Eloise Vance Work Phone: [facility] 250 DO Work Phone: 12-08-2022 15:47-0400 Diastolic blood pressure 84 mm[Hg] DO Eloise Saldañak Work Phone: [facility] 12-08-2022 15:47-0400 Heart rate 60 /min DO Eloise Saldañak Work Phone: [facility] 12-08-2022 15:47-0400 Respiratory rate 20 /min DO Eloise Vance Work Phone: [facility] 12-08-2022 15:47-0400 SaO2% (BldA) [Mass fraction] 97 % DO Eloise Saldañak Work Phone: [facility] 12-08-2022 15:47-0400 Systolic blood pressure 138 mm[Hg] DO Eloise Saldañak Work Phone: [facility] 12-08-2022 08:14-0400 Body height 177.8 cm DO Eloise Vance Work Phone: [facility] 12-08-2022 08:14-0400 Body temperature 98 [degF] DO Eloise Saldañak Work Phone: [facility] 12-08-2022 08:14-0400 Body weight 87 kg DO Eloise Vance Work Phone: [facility] 12-02-2022 11:39-0500 Diastolic blood pressure 62 mm[Hg] Eloise Jackie Florilutherk Work Phone: [facility] 250 DO Work Phone: 12-02-2022 11:39-0500 Diastolic blood pressure 58 mm[Hg] Eloise Mejia Florichak Work Phone: [facility] 250 DO Work Phone: 12-02-2022 11:39-0500 Systolic blood pressure 124 mm[Hg] Eloise Vance Work Phone: [facility] 250 DO Work Phone: 12-02-2022 11:39-0500 Systolic blood pressure 108 mm[Hg] Eloise Vance Work Phone: [facility] 250 DO Work Phone: 12-02-2022 11:07-0500 Body height 177.8 cm Eloise Vance Work Phone: [facility] 250 DO Work Phone: 12-02-2022 11:07-0500 Body mass index (BMI) [Ratio] 28.12 kg/m2 Eloise Vance Work Phone: [facility] 250 DO Work Phone: 12-02-2022 11:07-0500 Body surface area Derived from formula 2.07 m2 Eloise Vance Work Phone: [facility] 250 DO Work Phone: 12-02-2022 11:07-0500 Body weight 88.91 kg Eloise Vance Work Phone: [facility] 250 DO Work Phone: 12-02-2022 11:07-0500 Diastolic blood pressure 58 mm[Hg] Eloise Vance Work Phone: [facility] 250 DO Work Phone: 12-02-2022 11:07-0500 Heart rate 68 /min Eloise Vance Work Phone: [facility] 250 DO Work Phone: 12-02-2022 11:07-0500 Systolic blood pressure 120 mm[Hg] Eloise Vance Work Phone: [facility] 250 DO Work Phone: 12-04-2021 15:35-0500 Body height 177.8 cm Cherie Ardon Work Phone: [facility] 250 DO Work Phone: 12-04-2021 15:35-0500 Body mass index (BMI) [Ratio] 28.12 kg/m2 Cherie Ardon Work Phone: [facility] 250 DO Work Phone: 12-04-2021 15:35-0500 Body surface area Derived from formula 2.07 m2 Cherie Ardon Work Phone: [facility] 250 DO Work Phone: 12-04-2021 15:35-0500 Body weight 88.91 kg Cherie Ardon Work Phone: [facility] 250 DO Work Phone: 12-04-2021 15:35-0500 Diastolic blood pressure 68 mm[Hg] Cherie Ardon Work Phone: [facility] 250 DO Work Phone: 12-04-2021 15:35-0500 Heart rate 71 /min Cherie Ardon Work Phone: [facility] 250 DO Work Phone: 12-04-2021 15:35-0500 Systolic blood pressure 120 mm[Hg] Cherie Ardon Work Phone: [facility] 250 DO Work Phone: 09-09-2021 18:19-0500 Diastolic blood pressure 72 mm[Hg] No PCP None [facility] 250 DO Work Phone: 09-09-2021 18:19-0500 Systolic blood pressure 138 mm[Hg] No PCP None [facility] 250 DO Work Phone: 09-09-2021 11:58-0500 Body height 177.8 cm No PCP None [facility] 250 DO Work Phone: 09-09-2021 11:58-0500 Body mass index (BMI) [Ratio] 27.55 kg/m2 No PCP None [facility] 250 DO Work Phone: 09-09-2021 11:58-0500 Body surface area Derived from formula 2.05 m2 No PCP None [facility] 250 DO Work Phone: 09-09-2021 11:58-0500 Body weight 87.09 kg No PCP None [facility] 250 DO Work Phone: 09-09-2021 11:58-0500 Diastolic blood pressure 72 mm[Hg] No PCP None [facility] 250 DO Work Phone: 09-09-2021 11:58-0500 Heart rate 67 /min No PCP None [facility] 250 DO Work Phone: 09-09-2021 11:58-0500 Systolic blood pressure 158 mm[Hg] No PCP None [facility] 250 DO Work Phone: 09-02-2021 00:00-0500 65 1 Provider AMAProvider Work Phone: [facility] Work Phone: Comment on above: [id number] Encounters Encounter Date Encounter Type Care Provider Facility Start: 04-26-2024 Telephone encounter Susan Fritz LPN General Surgery Start: 04-26-2024 End: 04-26-2024 Patient encounter procedure Carson Monroe MD Work Phone: General Surgery Comment on above: Pacemaker (Primary D x); Duodenal adenoma; Abnormal findings on diagnostic imaging of liver and biliary tract Start: 04-26-2024 End: 04-26-2024 Subsequent hospital visit by physician Terry Flores Work Phone: Radiology Comment on above: Pacemaker [Z95.0] Start: 04-26-2024 End: 04-26-2024 ambulatory DEVAUGHN FARIAS Facility:[facility] Start: 04-26-2024 End: 04-26-2024 Subsequent hospital visit by physician Devaughn Farias MD Work Phone: Gastroenterology Comment on above: 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] Start: 04-19-2024 Telephone encounter Candi Banda RN Gastroenterology Start: 04-13-2024 End: 04-13-2024 ambulatory [facility] Ambulatory Start: 02-10-2024 End: 02-10-2024 ambulatory [facility] Facility:[facility] Start: 02-02-2024 End: 02-02-2024 ambulatory ELOISE VANCE Not Available Start: 12-08-2023 End: 12-08-2023 ambulatory CARLOS TO Facility:[facility] Start: 12-08-2023 End: 12-08-2023 Subsequent hospital visit by physician Devaughn Farias MD Work Phone: Gastroenterology Comment on above: Duodenal adenoma [D1 3.2] Start: 11-30-2023 End: 11-30-2023 ambulatory DEVAUGHN FARIAS Facility:[facility] Start: 11-27-2023 End: 11-27-2023 ambulatory ELOISE VANCE Not Available Start: 11-12-2023 End: 11-12-2023 ambulatory Eloise Vance Facility:[facility] Start: 11-12-2023 End: 11-12-2023 ambulatory DO Eloise Vance Work Phone: [facility] Work Phone: Start: 11-12-2023 End: 11-12-2023 Patient encounter procedure DO Eloise Vance Work Phone: [facility]-Pacemaker Check Start: 10-15-2023 End: 10-15-2023 ambulatory Jules Gallo Other [facility] [employer] Other Start: 10-15-2023 Patient encounter procedure Jules MUNROE Gastroenterology Start: 10-15-2023 End: 10-15-2023 Patient encounter procedure DO Eloise Vance Work Phone: [facility]- Start: 10-14-2023 End: 10-14-2023 ambulatory DEVAUGHN [facility] Facility:[facility] Start: 10-02-2023 End: 10-02-2023 Office outpatient visit 25 minutes Koby Mcclain MD Work Phone: [facility] Comment on above: ASCVD (arteriosclero tic cardiovascular disease) (Primary Dx); Mixed hyperlipidemia; Primary hypertension; Pacemaker; SSS (sick sinus syndrome) ([facility]) Start: 10-02-2023 End: 10-02-2023 ambulatory KOBY MCCLAIN [facility] Ambulatory Start: 09-07-2023 End: 09-07-2023 ambulatory JOSE ANGEL MARTINEZ Not Available Start: 09-04-2023 Telephone encounter Carlos velasquez MD Work Phone: [facility] Start: 09-04-2023 End: 09-04-2023 ambulatory CARLOS TO Facility:[facility] Start: 09-01-2023 End: 09-01-2023 ambulatory Jules Gallo Other [facility] [employer] Other Start: 09-01-2023 Telephone encounter Jules WILLIAM G Gastroenterology Start: 08-12-2023 End: 08-12-2023 ambulatory Koby Mcclain Facility:[facility] Start: 08-12-2023 End: 08-12-2023 ambulatory DO Eloise Vance Work Phone: [facility] Work Phone: Start: 08-12-2023 End: 08-12-2023 Patient encounter procedure DO Eloise Vance Work Phone: [facility]-Pacemaker Check Start: 08-04-2023 End: 08-04-2023 ambulatory Eloise Vance Facility:[facility] Start: 08-04-2023 End: 08-04-2023 Admission to same day surgery center DO Eloise Vance Work Phone: [facility]-Digestive [facility] Work Phone: Start: 08-04-2023 End: 08-04-2023 ambulatory DO Eloise Vance Work Phone: [facility] Work Phone: Start: 07-22-2023 End: 07-22-2023 ambulatory Jules Gallo Other [facility] [employer] Other Start: 07-22-2023 FQ visit new patient Jules Gallo [facility] Start: 05-11-2023 End: 05-11-[address] Eloise Vance Facility:[id number] Start: 05-11-2023 End: 05-11-2023 Patient encounter procedure DO Eloise Vance Work Phone: [facility]-Pacemaker Check Start: 04-30-2023 Chart Update Eloise suarez Work Phone: [facility] 250 DO Work Phone: Start: 04-27-2023 ambulatory ELOISE VANCE Facility:[id number] Start: 03-25-2023 Rx Renewal Eloise suarez Work Phone: [facility] 250 DO Work Phone: Start: 03-16-[address] Koby Mcclain II Facility: Start: 02-09-[address] Eloise Vance Facility:[id number] Start: 02-09-2023 End: 02-09-2023 Admission to same day surgery center DO Eloise Vance Work Phone: [facility]-Theater Technician Work Phone: Start: 02-09-2023 End: 02-09-2023 ambulatory DO Eloise Vance Work Phone: [facility] Work Phone: Start: 02-06-2023 End: 02-06-2023 ambulatory DO Eloise Vance Work Phone: [facility] Work Phone: Start: 02-06-2023 End: 02-06-2023 Patient encounter procedure DO Eloise Vance Work Phone: [facility] [facility] Work Phone: Start: 02-06-2023 End: 02-06-2023 ambulatory DO Eloise Vance Work Phone: [facility] Work Phone: Start: 02-06-2023 End: 02-06-2023 Patient encounter procedure DO Eloise Vance Work Phone: [facility]-Pacemaker Check Start: 02-06-[address] Eloise Vance Facility:[id number] Start: 02-05-2023 Result Review [facility] Work Phone: Start: 02-04-2023 Chart Update Eloise suarez Work Phone: [facility] [place] 600 DO Work Phone: Start: 02-03-2023 ambulatory ELOISE VANCE Facility:[id number] Start: 01-12-2023 Office outpatient vi sit 25 minutes Eloise Vance Work Phone: [facility] 250 DO Work Phone: Start: 01-12-[address] Koby Mcclain II Facility: Start: 12-17-2022 Chart Update Eloise suarez Work Phone: [facility] 250 DO Work Phone: Start: 12-08-[address] Eloise Vance Facility:90 Start: 12-08-2022 End: 12-08-2022 Admission to same day surgery center DO Eloise Vance Work Phone: [facility]-Theater Technician Work Phone: Start: 12-08-2022 End: 12-08-2022 ambulatory DO Eloise Vance Work Phone: [facility] Work Phone: Start: 12-04-2022 Chart Update Eloise suarez Work Phone: [facility] 250 DO Work Phone: Start: 12-03-2022 End: 12-03-2022 Patient encounter procedure DO Eloise Vance Work Phone: [facility]-Pre-Surgical Testing Work Phone: Start: 12-02-2022 Office outpatient vi sit 40 minutes Eloise Vance Work Phone: [facility] 250 DO Work Phone: Start: 12-02-[address] Koby Mcclain II Facility: Start: 11-07-2022 End: 11-07-2022 Patient encounter procedure DO Eloise Vance Work Phone: [facility]-Pacemaker Check Start: 11-07-[address] Cherie Ardon Facility:[id number] Start: 09-29-2022 End: 09-30-[address] ELOISE VANCE Facility:H1 Start: 08-08-2022 End: 08-08-2022 ambulatory DO Eloise Vance Work Phone: [facility] Work Phone: Start: 08-08-2022 End: 08-08-2022 Patient encounter procedure DO Eloise Vance Work Phone: [facility]-Pacemaker Check Start: 08-08-[address] Cherie Ardon Facility:[id number] Start: 04-30-2022 End: 05-01-[address] ELOISE VANCE Facility:H1 Start: 01-27-2022 End: 01-27-2022 Patient encounter procedure DO Cherie Ardon Work Phone: [facility]-Pacemaker Check Start: 12-04-2021 Office outpatient vi sit 25 minutes Cherie Ardon Work Phone: [facility] 250 DO Work Phone: Start: 10-28-2021 End: 10-29-[address] CHERIE ARDON Facility:H1 Start: 10-17-2021 Chart Update Cherie Roy ol Work Phone: [facility] 250 DO Work Phone: Start: 09-09-2021 AUDIT No PCP None [facility] 250 DO Work Phone: Start: 09-09-2021 FUV, Provider: Koby Mcclain, Status: Pen, Time: 11:40 AM Provider AMJamilah Work Phone: [facility] Work Phone: Start: 08-29-2021 Patient encounter procedure Koby Mcclain MD Work Phone: [facility] 250 DO Work Phone: Procedures Date Procedure Procedure Detail Performing Clinician Start: 04-26-2024 Radiologic exam chest 2 views Carson hernandez MD Work Phone: Start: 04-26-2024 Esophagoscp rig transoral hypopharynx crv diaz Farias MD Work Phone: Start: 12-08-2023 Esophagoscp rig transoral hypopharynx crv diaz To MD Work Phone: Start: 11-30-2023 Antibody screen CARSON MONROE Comment on above: Order Comment: Specimen Type: BLOOD SPEC IMENOrdering Facility: [facility] Address: [address] [place] [address] Performed By: #### T [id number] ####CC MAIN BLOOD BANKCLIA [id number] VEENA CRUZ [id number] [address] [place] Start: 08-04-2023 Esophagogastroduodenoscopy DO Eloise govea Work Phone: Start: 02-09-2023 [facility] Angio DO Eloise Florilutherk Work Phone: Start: 12-08-2022 CL FFR/IFR Initial Vessel DO Eloise hernandez Work Phone: Start: 12-08-2022 CL [facility] Angio DO Eloise Florilutherarely Work Phone: Start: 12-08-2022 CL Stent 1st Vessel LAD JUAN CARLOS DO Eloise clark Work Phone: Cardiac catheterization Prov ider AMAProvider Work Phone: Cataract surgery Provider AMAProvider Work Phone: Hernia repair Provider AMAProvider Work Phone: History of percutane ous transluminal coronary angioplasty History of PTCA Eloise Vance Work Phone: Insertion of pacemak er pulse generator Provider AMAProvider Work Phone: Percutaneous translu gio coronary angioplasty Provider AMAProvider Work Phone: Procedure on back Provider AMAProvider Work Phone: Total colonoscopy Provider AMAProvider Work Phone: Plan of Treatment Date Care Activity Detail Author Start: 2026 Diabetes Screening Diabetes Screening [facility] Start: 05-29-2024 Influenza vaccination Influenza Vaccine (#1) [facility] Start: 05-18-2024 End: 05-18-2024 Patient encounter procedure 05/18/2024 1:00 PM EDT Office Visit Gastroenterology [address] [address] Devaughn Farias MD [address] [place] [address] EMR Follow up Gastroenterology Comment on above: EMR Follow up Start: 04-26-2024 End: 04-26-2024 Patient encounter procedure Gastroenterology Comment on above: 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]//EMR Start: 04-13-2024 End: 04-13-2024 Patient encounter procedure 04/13/2024 2:10 PM EDT Office Visit [facility] [address] [facility] [address] [place] [id number] Koby Mcclain MD [address] [facility] [address] [place] [address] [facility] Start: 11-21-2023 Covid-19 Vaccine () Covid-19 Vaccine () [facility] Start: 10-02-2023 FUV, Provider: Koby Mcclain, Status: Pen, Time: 2:10 PM FUV, Provider: Koby Mcclain, Status: Pen, Time: 2:10 PM [facility] [place] 250 DO Work Phone: Start: 09-28-2023 Advance Directive Discussion Advance Directive Discussion [facility] Start: 09-28-2023 Behavioral Health Screening Behavioral Health Screening [facility] Start: 09-28-2023 Depression Assessment Depression Assessment [facility] Start: 09-15-2023 COVID-19 Vaccine (5 - Pfizer series) COVID-19 Vaccine (5 - Pfizer series) [facility] Start: 08-04-2023 [facility] Start: 04-27-2023 CAROTID, Provider: AISSATOU HHVI ULTRASOUND ,[id number], Status: Pen, Time: 10:45 AM CAROTID, Provider: AISSATOU HHVI ULTRASOUND ,[id number], Status: Pen, Time: 10:45 AM [facility] [facility] DO Work Phone: Start: 03-16-2023 FUV, Provider: Koby Mcclain, Status: Pen, Time: 10:50 AM FUV, Provider: Koby Mcclain, Status: Pen, Time: 10:50 AM -[facility] 250 DO Work Phone: Start: 02-09-2023 [facility] Start: 02-09-2023 SURGNONUH, Provider: Koby Ponce, Status: Pen, Time: 9:00 AM SURGNONUH, Provider: Koby Ponce, Status: Pen, Time: 9:00 AM -[facility] 600 DO Work Phone: Start: 02-03-2023 STRESS NUC, Provider: AISSATOU HHVI NUCLEAR 01,[id number], Status: Pen, Time: 12:30 PM STRESS NUC, Provider: AISSATOU HHVI NUCLEAR 01,[id number], Status: Pen, Time: 12:30 PM [facility] 250 DO Work Phone: Start: 01-12-2023 FUV, Provider: Koby Mcclain, Status: Pen, Time: 9:10 AM FUV, Provider: Koby Mcclain, Status: Pen, Time: 9:10 AM [facility] 250 DO Work Phone: Start: 12-08-2022 SURGNONUH, Provider: Koby Ponce, Status: Pen, Time: 9:00 AM SURGNONUH, Provider: Koby Ponce, Status: Pen, Time: 9:00 AM [facility] 250 DO Work Phone: Start: 12-08-2022 [facility] Start: 12-02-2022 FUV, Provider: Koby Mcclain, Status: Pen, Time: 11:10 AM FUV, Provider: Koby Mcclain, Status: Pen, Time: 11:10 AM [facility] 250 DO Work Phone: Start: 09-28-2022 Advance Directive Discussion Advance Directive Discussion [facility] Start: 09-28-2022 Depression Assessment Depression Assessment [facility] Start: 01-14-2022 FUV, Provider: Koby Mcclain, Status: Pen, Time: 11:15 AM FUV, Provider: Koby Mcclain, Status: Pen, Time: 11:15 AM -[facility] 250 DO Work Phone: Start: 12-04-2021 FUV, Provider: Koby Mcclain, Status: Pen, Time: 3:30 PM FUV, Provider: Koby Mcclain, Status: Pen, Time: 3:30 PM [facility] 250 DO Work Phone: Start: 10-16-2021 STRESS NUC, Provider: AISSATOU HHVI NUCLEAR 01,[id number], Status: Pen, Time: 12:00 PM STRESS NUC, Provider: AISSATOU HHVI NUCLEAR 01,[id number], Status: Pen, Time: 12:00 PM -[facility] 250 DO Work Phone: Start: 09-09-2021 FUV, Provider: Koby Mcclain, Status: Pen, Time: 11:40 AM FUV, Provider: Koby Mcclain, Status: Pen, Time: 11:40 AM -[facility] 250 DO Work Phone: Start: 09-19-2016 Shingrix Vaccine (2 of 3) Shingrix Vaccine (2 of 3) [facility] Start: 09-19-2016 Zoster Vaccines (2 of 3) Zoster Vaccines (2 of 3) [facility] Start: 03-03-2005 Diabetes Screening Diabetes Screening [facility] Start: 2002 RSV Vaccine (1 - 1-dose 60+ series) RSV Vaccine (1 - 1-dose 60+ series) [facility] Start: 1964 DTaP/Tdap/Td Vaccines (1 - Tdap) DTaP/Tdap/Td Vaccines (1 - Tdap) [facility] Start: 1961 Urine microalbumin profile DTaP,Tdap,Td Vaccine (1 - Tdap) [facility] Start: 1960 Anxiety Screening Anxiety Screening [facility] Start: 1960 Depression Screening Depression Screening [facility] Start: 1942 Lipid panel Lipid Panel [facility] Start: 1942 Medicare Annual Wellness Visit Medicare Annual Wellness Visit (AWV) [facility] End: 05-30-2025 MR Biliary ducts and Pancreatic duct WO and W contrast IV MRI PANC/TAMARA WO/W IVCON Radiology Routine Abnormal findings on diagnostic imaging of liver and biliary tract 1 Occurrences starting 04/30/2024 until 05/30/2025 [facility] Work Phone: Comment on above: 1 Occurrences starting 04/30/2024 until 05/30/2025 End: 05-30-2025 MR Unspecified body region 3D post processing MRI 3D POST PROCESSING Radiology Routine Abnormal findings on diagnostic imaging of liver and biliary tract 1 Occurrences starting 04/30/2024 until 05/30/2025 [facility] Comment on above: 1 Occurrences starting 04/30/2024 until 05/30/2025 Patient Education Coronary Angio plasty (DC) Coronary Stenting (DC) Angina (DC) Chest Pain (DC) Drug Eluting Stents [facility] Work Phone: Patient referral [facility] Work Phone: SURGICAL PATHOLOGY [facility] Work Phone: Comment on above: Release Upon Ordering for 1 Occurrences starting 12/08/2023, 1 completed SURGICAL PATHOLOGY [facility] Work Phone: Comment on above: Release Upon Ordering for 1 Occurrences starting 04/26/2024, 1 completed [facility] Immunizations Immunization Date Immunization Notes Care Provider Fa avera [facility] 07-21-2023 influenza virus vaccine, unspecified formulation Candi Banda RN [facility] 08-14-2022 Pfizer COVID-19 Vac Bivalent 30 MCG/0.3ML Intramuscular Suspension Eloise V[facility] Work Phone: 07-24-2022 Fluad Quadrivalent 0 .5 ML Intramuscular Prefilled Syringe Eloise Vance Work Phone: [place] [address] DO Work Phone: 02-10-2022 Moderna COVID-19 Vaccine 100 MCG/0.5ML Intramuscular Suspension Eloise Vance Work Phone: [place] [address] DO Work Phone: 07-15-2021 Fluad Quadrivalent 0 .5 ML Intramuscular Prefilled Syringe No PCP None [place] [address] DO Work Phone: 06-28-2021 Pfizer-BioNTech COVID-19 Vacc 30 MCG/0.3ML Intramuscular Suspension No PCP None [place] [address] DO Work Phone: 11-18-2020 Pfizer-BioNTech COVID-19 Vacc 30 MCG/0.3ML Intramuscular Suspension Provider AMAProvider Work Phone: [facility] Work Phone: 10-28-2020 Pfizer-BioNTech COVID-19 Vacc 30 MCG/0.3ML Intramuscular Suspension No PCP None [place] [address] DO Work Phone: 07-26-2020 Fluad Quadrivalent 0 .5 ML Intramuscular Prefilled Syringe No PCP None [place] [address] DO Work Phone: 06-28-2020 influenza virus vaccine, unspecified formulation Provider AMAProvider Work Phone: [facility] Work Phone: 08-13-2019 influenza, high dose seasonal, preservative-free No PCP None [place] [address] DO Work Phone: 07-29-2019 influenza virus vaccine, unspecified formulation Provider AMAProvider Work Phone: [facility] Work Phone: 07-26-2018 influenza virus vaccine, unspecified formulation Provider AMAProvider Work Phone: [facility] Work Phone: 07-29-2017 pneumococcal conjuga te vaccine, 13 valent Provider AMAProvider Work Phone: [facility] Work Phone: 07-29-2017 pneumococcal polysaccharide vaccine, 23 valent Eloise Mejia Florilutherarely Work Phone: [place] [address] DO Work Phone: 07-25-2016 influenza, high dose seasonal, preservative-free No PCP None [place] [address] DO Work Phone: 07-25-2016 pneumococcal conjuga te vaccine, 13 valent No PCP None [place] [address] DO Work Phone: 07-25-2016 zoster vaccine, live No PCP None [place] [address] DO Work Phone: 07-16-2015 influenza virus vaccine, unspecified formulation Provider AMAProvider Work Phone: [facility] Work Phone: 06-28-2014 influenza virus vaccine, unspecified formulation Provider AMAProvider Work Phone: [facility] Work Phone: 06-28-2014 influenza virus vaccine, whole virus Provider AMAProvider Work Phone: [facility] Work Phone: 10-03-2009 novel [id number], preservative-free, injectable No PCP None [place] [address] DO Work Phone: 07-17-2009 influenza virus vaccine, whole virus No PCP None [place] [address] DO Work Phone: 09-13-2007 pneumococcal polysaccharide vaccine, 23 valent Provider AMAProvider Work Phone: [facility] Work Phone: influenza virus vaccine, unspecified formulation Provider AMAProvider Work Phone: [facility] Work Phone: Comment on above: 2012 2011 2009 Payers Date Payer Category Payer Self-pay [id number] 2011 Unknown 2007 Medicare [id number] 1959 Medicare [id number] 1959 Unknown [id number] 1942 Unknown [id number] 2.16.84 0.1.263864.3.579.2.593 1942 Unknown [id number] 2.16.84 0.1.959489.3.579.2.593 1942 Unknown [id number] 2.16.84 0.1.082836.3.579.2.593 1942 Unknown [id number] 2.16.8 40.1.911832.3.579.2.1068 1942 Unknown [id number] 2.16.8 40.1.519060.3.579.2.1068 1942 Unknown [id number] 2. 840.1.030997.3.579.2.356 1942 Unknown [id number] 2. 840.1.303208.3.579.2.356 1942 Unknown [id number] 2.16. 840.1.160196.3.579.2.356 1942 Unknown [id number] 2.16. 840.1.036626.3.579.2.356 1942 Unknown [id number] 2.. 840.1.584535.3.579.2.356 1942 Unknown [id number] 2.16. 840.1.899164.3.579.2.356 1942 Unknown [id number] 2.16. 840.1.888477.3.579.2.356 1942 Unknown [id number] 2.16. 840.1.117958.3.579.2.356 1942 Unknown [id number] 2.16. 840.1.002591.3.579.2.356 1942 Unknown [id number] 2.16. 840.1.920476.3.579.2.356 1942 Unknown [id number] 2.16.84 0.1.467288.3.579.2.1259 1942 Unknown [id number] 2.16.84 0.1.377127.3.579.2.1259 1942 Unknown [id number] 2.16.840 .1.096585.3.579.2.1259 1942 Unknown [id number] 2.16.8 40.1.276873.3.579.2.1244 1942 Unknown [id number] 2.16.8 40.1.656039.3.579.2.1244 Unknown [id number] 2.16.8 40.1.006893.3.579.2.531 Unknown [id number] 2.16.8 40.1.034187.3.579.2.531 Unknown [id number] 2.16.8 40.1.451096.3.579.2.531 Unknown [id number] 2.16.8 40.1.129207.3.579.2.531 Unknown [id number] 2.16.8 40.1.041666.3.579.2.531 Social History Date Type Detail Facility Start: 09-01-2023 End: 04-26-2024 No illicit drug use No illicit drug use [facility] Work Phone: Comment on above: occaionlly on and of f; 1 cup of decafe coff ee daily; quit 1968; Start: 11-03-2019 End: 12-08-2023 Tobacco smoking status NHIS Ex-smoker (finding) [facility] Start: 1940 Sex Assigned At Male F [facility] Start: 09-01-2023 End: 04-26-2024 Sex Assigned At [employer] Other Tobacco smoking status WAIS Tobacco smoking consumption unknown [facility] National Score (1-100), lower number is lower risk 78 [facility] Start: 1940 Sex Assigned At Not on file C [facility] End: 09-28-1967 History of tobacco use Current smoker [facility] Work Phone: End: 09-28-1967 History of tobacco use Cigarette Smoker [facility] Work Phone: Start: 10-02-2023 End: 12-08-2023 Tobacco use and exposure Smokeless tobacco non-user [facility] Work Phone: Start: 10-02-2023 End: 04-26-2024 Alcohol intake Current drinker of alcohol (finding) [facility] Work Phone: Start: 10-02-2023 Alcohol Comment occassionally [facility] Work Phone: Start: 09-22-2023 End: 10-02-2023 Exposure to SARS-CoV-2 (event) Not sure [facility] History of tobacco use Passive smoker [facility] Start: 12-08-2023 Alcohol Comment Occasional beer/[place] [facility] Medical Equipment Procedure Code Equipment Code Equipment Origin al Text Equipment Identifier Dates Insertion, pacemaker PACEMAKER ASSURITY MRI RF FDA Start: 10-08-2018 Insertion, pacemaker PACEMAKER ASSURITY MRI RF FDA Start: 10-08-2018 Insertion, pacemaker PACEMAKER ASSURITY MRI RF FDA Start: 10-08-2018 Insertion, pacemaker PACEMAKER ASSURITY MRI RF FDA Start: 10-08-2018 Insertion, pacemaker PACEMAKER ASSURITY MRI RF FDA Start: 10-08-2018 Insertion, pacemaker PACEMAKER ASSURITY MRI RF FDA Start: 10-08-2018 Insertion, pacemaker PACEMAKER ASSURITY MRI RF FDA Start: 10-08-2018 Insertion, pacemaker PACEMAKER ASSURITY MRI RF FDA Start: 10-08-2018 Insertion, pacemaker PACEMAKER ASSURITY MRI RF FDA Start: 10-08-2018 Drug-eluting coronary artery stent, non-bioabsorbable- polymer-coated ()[id number] FDA Start: 11-03-2019 Drug-eluting coronary artery stent, non-bioabsorbable- polymer-coated ()[id number] FDA Start: 11-03-2019 Drug-eluting coronary artery stent, non-bioabsorbable- polymer-coated [id number] FDA Start: 11-03-2019 Drug-eluting coronary artery stent, non-bioabsorbable- polymer-coated ()[id number] FDA Start: 12-08-2022 Goals Date Patient Goal Desired Activity /State Functional Status Date Assessment Result Facility 12-08-2022 Functional status Patient at Baseline [facility] Work Phone: Mental Status Date Assessment Result Facility 12-08-2022 Cognitive function Cognitive Sta tus Patient at Baseline [facility] Work Phone: Clinical Notes 10-26-2015 to 04-26-2024 Telephone Encounter - Susan Fritz LPN - 04/26/2024 11:50 AM EDTTelephone Encounter - Susan Fritz LPN - 04/26/2024 11:50 AM EDTSLyudmila bolanos RT(R) - 04/26/2024 10:45 AM EDT Note Date & Type Note Facility 04-26-2024 Telephone encounter Note Imaging request faxed to [facility] Fax: [facility] 04-26-2024 Miscellaneous Notes Imaging request faxed to [facility] Fax: documented in this encounter [facility] 04-26-2024 History of Presen t illness Narrative Radiology Service Progress Note PATIENT NAME: Alexandria Dodson DATE OF SERVICE: April 26, 2024 TIME: 10:56 AM PATIENT IDENTITY VERIFICATION COMPLETED USING TWO (2) IDENTIFIERS: Name and Date of confirmed by patient verbally. FALL SCREENING: Has the patient had 2 falls in the last year or 1 fall with injury or currently using an Ambulatory Assistive Device (Walker, Cane, Wheelchair, Crutches, etc.)? No PATIENT GENDER DATA: Male PATIENT RELEVANT IMPLANT DATA REVIEWED: Not Applicable PATIENT PRESENTS WITH AN IMPLANTABLE OR ATTACHED ASSISTANT EXECUTIVE HOUSEKEEPER: No RADIOLOGY DEPARTMENT: General X-ray: Exam(s) Completed: Chest X-Ray PERIPHERAL IV DATA: Not applicable SIGNED BY: RT Francisco(Zaynab) April 26, 2024 10:56 AM documented in this encounter [facility] 04-26-2024 Note HNO ID: [id number] Author: LYUDMILA MATTHEWS RT (R) Service: Radiology Author Type: Technologist Type: Progress Notes Filed: 04/26/2024 10:56 Note Text: Radiology Service Progress Note PATIENT NAME: Alexandria Dodson DATE OF SERVICE: April 26, 2024 TIME: 10:56 AM PATIENT IDENTITY VERIFICATION COMPLETED USING TWO (2) IDENTIFIERS: Name and Date of confirmed by patient verbally. FALL SCREENING: Has the patient had 2 falls in the last year or 1 fall with injury or currently using an Ambulatory Assistive Device (Walker, Cane, Wheelchair, Crutches, etc.)? No PATIENT GENDER DATA: Male PATIENT RELEVANT IMPLANT DATA REVIEWED: Not Applicable PATIENT PRESENTS WITH AN IMPLANTABLE OR ATTACHED ASSISTANT EXECUTIVE HOUSEKEEPER: No RADIOLOGY DEPARTMENT: General X-ray: Exam(s) Completed: Chest X-Ray PERIPHERAL IV DATA: Not applicable SIGNED BY: RT Francisco(Zaynab) April 26, 2024 10:56 AM [facility] 07-30-2024 History and physical note HPB CONSULT HISTORY AND PHYSICAL HPI: This is a 83 year old male who presents with duodenal polyp. Patient with PMH of GERD, HTN, HLD, CAD s/p stents (most recent in 11/2022) on plavix, Emilio Bah syndrome s/p pacemaker (2006 and 2018) .The patient's doudenal polyp was diagnosed in 2022 after an episode of epigastric pain that led to an EGD at OSH the mass was then biopsied and the patient has been following with Dr. Farias ( GI). 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 He later underwent another surveillance EGD today showing polyp in stable size involving 3/4 of duodenum that could be removed Reports continued abdominal pain . With on and off discomfort in his epigastric area and reports this pain has been senior living. Reports constipation for the last 6 months. Reports 10 pound weight loss but that's related to stressors with putting his in a detention. Denies any personal history of Crohns but does have positive in sister and daughter Does have SOB after walking 100 yards. Previous Abdominal Surgeries: - Right inguinal hernia Cardiopulmonary Disease: See above Last Colonoscopy/EGD: Coloscopy in 2018 negative Anticoagulation/Antiplatelet: Plavix and ASA81 PAST MEDICAL HISTORY: PAST MEDICAL HISTORY Diagnosis Date Arthritis Congestive heart failure (HCC) Coronary artery disease Diabetes (HCC) Hypertension PAST SURGICAL HISTORY: PAST SURGICAL HISTORY Procedure Laterality Date BACK SURGERY HX EYE SURGERY HX HEART SURGERY HX HERNIA REPAIR HX FAMILY HISTORY: No family history on file. SOCIAL HISTORY: Social History Tobacco Use Smoking status: Former Packs/day: 1.00 Years: 4.00 Additional pack years: 0.00 Total pack years: 4.00 Types: Cigarettes Quit date: 1967 Years since quittin.6 Passive exposure: Current Smokeless tobacco: Never Vaping Use Vaping Use: Never used Substance Use Topics Alcohol use: Yes Comment: Occasional beer/[place] Drug use: Never MEDICATIONS: Prior to Admission Medications: ubidecarenone Q-10 (CO Q-10) 10 mg cap Co Q 10 Active LOW-DOSE ASPIRIN ORAL Low-Dose Aspirin Active citalopram (CELEXA) 20 mg tablet Take 20 mg by mouth. clopidogrel (PLAVIX) 75 mg tablet Take 75 mg by mouth. nitroglycerin sublingual (NITROQUICK) 0.4 mg SL tablet Dissolve 0.4 mg under the tongue. lutein 20 mg cap Take 1 capsule by mouth two times a day. pedi multivit no.12 w-fluoride ([id number]-[id number]-KNVUJ A ORAL) Take by mouth. Cholecalciferol, Vitamin D3, 25 mcg (1,000 unit) cap Cholecalciferol (Vitamin D3) (Vitamin D3) 25 mcg (1,000 unit) Capsule Active 1000 UNIT PO Twice daily November 01, 2019 12:00am famotidine (PEPCID) 40 mg tablet Take 40 mg by mouth. rosuvastatin (CRESTOR) 40 mg tablet Take 40 mg by mouth. ranolazine ER (RANEXA) 500 mg 12 hr tablet Take 1,000 mg by mouth every 12 hours. Glucosamine HCl 1,500 mg tab Take 1 tablet by mouth. psyllium husk (METAMUCIL) 3.4 gram/5.4 gram powd Take 1 1e11 Vector Genomes by mouth. No current facility-administered medications for this visit. ALLERGIES: ALLERGIES Allergen Reactions Erythromycin GI Upset COMPLETE REVIEW OF SYSTEMS: PAIN ASSESSMENT: Negative for pain, history of chronic pain, or current treatment for a chronic pain condition. GENERAL: No weight loss, malaise or fevers HEENT: Negative for frequent or significant headaches, No changes in hearing or vision, no nose bleeds or other nasal problems NECK: Negative for lumps, goiter, pain and significant neck swelling RESPIRATORY: Negative for cough, wheezing or shortness of breath. CARDIOVASCULAR: Negative for chest pain, leg swelling or palpitations. GI: Negative for abdominal discomfort, blood in stools or black stools or change in bowel habits : No history of dysuria, frequency or incontinence AUTO BODY ESTIMATOR: Negative for abnormal vaginal bleeding, abnormal vaginal discharge MUSCULOSKELETAL: Negative for joint pain or swelling, back pain or muscle pain. PHYSICAL EXAM: There were no vitals taken for this visit. General: Well developed and well nourished appearance. No acute distress. Skin: No rash on chest, arms or legs. Warm, dry. Head/Eyes: Sclera clear, normal conjunctiva. EOMI. Mouth/Pharynx: Teeth: Fair dentition. No lesions. Neck: No JVD. Supple. Lungs: Normal respiratory effort. Clear lungs without rhonchi, rales, wheezing. Breasts: Deferred Heart: Normal PMI. No lifts or thrills. Regular rate and rhythm. Normal S1, S2. No S3. No S4. No murmurs. No rubs. Peripheral Vascular/Arteries: Carotid pulse normal without bruit. No abdominal bruits. No femoral bruits or hematoma. DP/Radial pulses normal. Abdomen: Soft abdomen, nontender, nondistended without mass. No hepatosplenomegaly. Normal bowel sounds. Musculoskeletal: No kyphoscoliosis. No joint deformities. Extremities: No clubbing or cyanosis. No edema. Warm digits. Neurologic/Psychiatric: Oriented to person, place, time. Normal affect. No gross focal neurologic deficits. DATA: Laboratory: EGD : 11/2023 Attending MD: Devaguhn Farias MD, [id number] Procedure: Upper GI endoscopy Indications: For therapy of duodenal tumor Providers: Devaughn Farias MD Patient Profile: Refer to note in patient chart for documentation of history and physical. Referring Physician: Carlos To (Referring MD) Medicines: General Anesthesia with intubation Complications: No immediate complications. Requesting Provider: Procedure: Pre-Anesthesia Assessment: - ASA Grade Assessment: II - A patient with mild systemic disease. After obtaining informed consent, the endoscope was passed under direct vision. Throughout the procedure, the patient's blood pressure, pulse, and oxygen saturations were monitored continuously. The Endoscope was introduced through the mouth, and advanced to the second part of duodenum. Moderate Sedation: MAC anesthesia was administered by the anesthesia team. Findings: The examined esophagus was normal. The entire examined stomach was normal. There is 5cm+ duodenal polyp involving 2/3 the circumference of the 2nd portion of the duodenum. Biopsied., The entire examined stomach was normal. Impression: 5cm duodenal polyp. 2/3 the circumference. Biopsied. Estimated Blood Loss: Estimated blood loss: none. Recommendation: - Await pathology results. - Discuss in clinic the risks and benefits endoscopic resection - Patient has a contact number available for emergencies. The signs and symptoms of potential delayed complications were discussed with the patient. Return to normal activities tomorrow. Written discharge instructions were provided to the patient. Procedure Code(s): --- Professional --- 61003 Diagnosis Code(s): --- Professional --- D49.0 CPT copyright 2020 [employer]. All rights reserved. Attending Participation: I personally performed the entire procedure. Scope In: 2:20:14 PM Scope Out: 2:27:06 PM MD Devaughn Bolivar MD 12/08/2023 2:34:39 PM This report has been signed electronically by Devaughn Farias MD Number of Addenda: 0 Note Initiated On: 12/08/2023 1:56 PM Q3 Patient Name: Alexandria Dodson Procedure Date: 04/26/2024 7:29 AM Date of : 1940 Admit Type: Outpatient Age: 83 Gender: Male Note Status: Finalized Attending MD: Devaughn Farias MD, [id number] Procedure: Upper GI endoscopy Indications: Surveillance procedure for duodenal adenoma Providers: Devaughn Farias MD, Lady Mandy Delaney (Fellow) Patient Profile: This is an 83 year old male. Refer to note in patient chart for documentation of history and physical. Referring Physician: Devaughn Farias MD (Referring MD) Medicines: Monitored Anesthesia Care Complications: No immediate complications. Requesting Provider: Procedure: Pre-Anesthesia Assessment: - Prior to the procedure, a History and Physical was performed, and patient medications and allergies were reviewed. The patient's tolerance of previous anesthesia was also reviewed. The risks and benefits of the procedure and the sedation options and risks were discussed with the patient. All questions were answered, and informed consent was obtained. Prior Anticoagulants: The patient has taken Plavix (clopidogrel) and aspirin, last dose was 5 days prior to procedure. ASA Grade Assessment: III - A patient with severe systemic disease. After reviewing the risks and benefits, the patient was deemed in satisfactory condition to undergo the procedure. After obtaining informed consent, the endoscope was passed under direct vision. Throughout the procedure, the patient's blood pressure, pulse, and oxygen saturations were monitored continuously. The Endoscope was introduced through the mouth, and advanced to the second part of duodenum. The Duodenoscope was introduced through the mouth, and advanced to the second part of duodenum. The upper GI endoscopy was accomplished without difficulty. The patient tolerated the procedure well. Moderate Sedation: MAC anesthesia was administered by the anesthesia team. Findings: A small hiatal hernia was present. The exam of the esophagus was otherwise normal. The entire examined stomach was normal. One 50 mm sessile and semi-pedunculated polyp was found in the second portion of the duodenum. This polyp involved 3/4 of the duodenal circumference. It did not involve the ampulla, which was visualized with both GIF and side viewer scope. Biopsies were taken with a cold forceps for histology. The exam was otherwise without abnormality. Impression: - Small hiatal hernia. - Normal stomach. - One duodenal polyp. Biopsied. - The polyp involves 3/4 the circumference of the duodenal lumen, adjacent but does not involve the ampulla. Endoscopic resection is technically possible but would result in significant risk of post resection stricture and bleeding. Previously discussed with patient, would prefer surveillance at this point in regards to endoscopy. Will also see surgery to explore surgical options. - The examination was otherwise normal. Estimated Blood Loss: Estimated blood loss: none. Recommendation: - Patient has a contact number available for emergencies. The signs and symptoms of potential delayed complications were discussed with the patient. Return to normal activities tomorrow. Written discharge instructions were provided to the patient. - Resume previous diet. - Continue present medications. - Await pathology results. - Repeat upper endoscopy for surveillance based on path. Procedure Code(s): --- Professional --- 02807 Diagnosis Code(s): --- Professional --- K44.9 K31.7 CPT copyright 2020 [employer]. All rights reserved. Attending Participation: I was present and participated during the entire procedure, including non-wiseman portions. 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 Does have extensive cardiac history. No past abdominal surgical history - Recommend surgical resection of duodenal polyp. - MRCP to rule out pancreatic divisim ( will get CXR given pacemaker) - Will require Cardiology consult for risk assessment SIGNATURE: Valdo Serna MD DATE of SERVICE: 04/26/2024 TIME of SERVICE: 9:31 AM [facility] STAFF PHYSICIAN NOTE OF PERSONAL INVOLVEMENT IN CARE I have reviewed the consult note obtained and documented by the resident and I personally participated in the wiseman components. I have discussed the case and management of the patient's care. The following comments revise or confirm relevant wiseman components of the note. 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 Hx CAD, pacemaker but has good functional status PLAN: Would like MRI pancreas to see if has divisum (has implications for surgery) - will see if he is a candidate for MRI/device program here Surgery would entail segmental duodenal resection, cholecystectomy Will need pre-op cardiac risk eval Medical Decision Making: Problems: Moderate: New problem with uncertain prognosis Data: Unique test result(s) reviewed: 1 Unique test(s) ordered: 1 Risk: Moderate: Moderate risk from testing/treatment Medical Decision Making Level: 4 - Moderate Carson Monroe MD T [facility] 04-26-2024 History and physical note HPB CONSULT HISTORY AND PHYSICAL HPI: This is a 83 year old male who presents with duodenal polyp. Patient with PMH of GERD, HTN, HLD, CAD s/p stents (most recent in 11/2022) on plavix, Emilio Bah syndrome s/p pacemaker (2006 and 2018) .The patient's doudenal polyp was diagnosed in 2022 after an episode of epigastric pain that led to an EGD at OSH the mass was then biopsied and the patient has been following with Dr. Farias ( GI). 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 He later underwent another surveillance EGD today showing polyp in stable size involving 3/4 of duodenum that could be removed Reports continued abdominal pain . With on and off discomfort in his epigastric area and reports this pain has been senior living. Reports constipation for the last 6 months. Reports 10 pound weight loss but that's related to stressors with putting his in a detention. Denies any personal history of Crohns but does have positive in sister and daughter Does have SOB after walking 100 yards. Previous Abdominal Surgeries: - Right inguinal hernia Cardiopulmonary Disease: See above Last Colonoscopy/EGD: Coloscopy in 2018 negative Anticoagulation/Antiplatelet: Plavix and ASA81 PAST MEDICAL HISTORY: PAST MEDICAL HISTORY Diagnosis Date Arthritis Congestive heart failure (HCC) Coronary artery disease Diabetes (HCC) Hypertension PAST SURGICAL HISTORY: PAST SURGICAL HISTORY Procedure Laterality Date BACK SURGERY HX EYE SURGERY HX HEART SURGERY HX HERNIA REPAIR HX FAMILY HISTORY: No family history on file. SOCIAL HISTORY: Social History Tobacco Use Smoking status: Former Packs/day: 1.00 Years: 4.00 Additional pack years: 0.00 Total pack years: 4.00 Types: Cigarettes Quit date: 1967 Years since quittin.6 Passive exposure: Current Smokeless tobacco: Never Vaping Use Vaping Use: Never used Substance Use Topics Alcohol use: Yes Comment: Occasional beer/[place] Drug use: Never MEDICATIONS: Prior to Admission Medications: ubidecarenone Q-10 (CO Q-10) 10 mg cap Co Q 10 Active LOW-DOSE ASPIRIN ORAL Low-Dose Aspirin Active citalopram (CELEXA) 20 mg tablet Take 20 mg by mouth. clopidogrel (PLAVIX) 75 mg tablet Take 75 mg by mouth. nitroglycerin sublingual (NITROQUICK) 0.4 mg SL tablet Dissolve 0.4 mg under the tongue. lutein 20 mg cap Take 1 capsule by mouth two times a day. pedi multivit no.12 w-fluoride ([id number]-[id number] A ORAL) Take by mouth. Cholecalciferol, Vitamin D3, 25 mcg (1,000 unit) cap Cholecalciferol (Vitamin D3) (Vitamin D3) 25 mcg (1,000 unit) Capsule Active 1000 UNIT PO Twice daily November 01, 2019 12:00am famotidine (PEPCID) 40 mg tablet Take 40 mg by mouth. rosuvastatin (CRESTOR) 40 mg tablet Take 40 mg by mouth. ranolazine ER (RANEXA) 500 mg 12 hr tablet Take 1,000 mg by mouth every 12 hours. Glucosamine HCl 1,500 mg tab Take 1 tablet by mouth. psyllium husk (METAMUCIL) 3.4 gram/5.4 gram powd Take 1 1e11 Vector Genomes by mouth. No current facility-administered medications for this visit. ALLERGIES: ALLERGIES Allergen Reactions Erythromycin GI Upset COMPLETE REVIEW OF SYSTEMS: PAIN ASSESSMENT: Negative for pain, history of chronic pain, or current treatment for a chronic pain condition. GENERAL: No weight loss, malaise or fevers HEENT: Negative for frequent or significant headaches, No changes in hearing or vision, no nose bleeds or other nasal problems NECK: Negative for lumps, goiter, pain and significant neck swelling RESPIRATORY: Negative for cough, wheezing or shortness of breath. CARDIOVASCULAR: Negative for chest pain, leg swelling or palpitations. GI: Negative for abdominal discomfort, blood in stools or black stools or change in bowel habits : No history of dysuria, frequency or incontinence AUTO BODY ESTIMATOR: Negative for abnormal vaginal bleeding, abnormal vaginal discharge MUSCULOSKELETAL: Negative for joint pain or swelling, back pain or muscle pain. PHYSICAL EXAM: There were no vitals taken for this visit. General: Well developed and well nourished appearance. No acute distress. Skin: No rash on chest, arms or legs. Warm, dry. Head/Eyes: Sclera clear, normal conjunctiva. EOMI. Mouth/Pharynx: Teeth: Fair dentition. No lesions. Neck: No JVD. Supple. Lungs: Normal respiratory effort. Clear lungs without rhonchi, rales, wheezing. Breasts: Deferred Heart: Normal PMI. No lifts or thrills. Regular rate and rhythm. Normal S1, S2. No S3. No S4. No murmurs. No rubs. Peripheral Vascular/Arteries: Carotid pulse normal without bruit. No abdominal bruits. No femoral bruits or hematoma. DP/Radial pulses normal. Abdomen: Soft abdomen, nontender, nondistended without mass. No hepatosplenomegaly. Normal bowel sounds. Musculoskeletal: No kyphoscoliosis. No joint deformities. Extremities: No clubbing or cyanosis. No edema. Warm digits. Neurologic/Psychiatric: Oriented to person, place, time. Normal affect. No gross focal neurologic deficits. DATA: Laboratory: EGD : 11/2023 Attending MD: Devaughn Farias MD, [id number] Procedure: Upper GI endoscopy Indications: For therapy of duodenal tumor Providers: Devaughn Farias MD Patient Profile: Refer to note in patient chart for documentation of history and physical. Referring Physician: Carlos To (Referring MD) Medicines: General Anesthesia with intubation Complications: No immediate complications. Requesting Provider: Procedure: Pre-Anesthesia Assessment: - ASA Grade Assessment: II - A patient with mild systemic disease. After obtaining informed consent, the endoscope was passed under direct vision. Throughout the procedure, the patient's blood pressure, pulse, and oxygen saturations were monitored continuously. The Endoscope was introduced through the mouth, and advanced to the second part of duodenum. Moderate Sedation: MAC anesthesia was administered by the anesthesia team. Findings: The examined esophagus was normal. The entire examined stomach was normal. There is 5cm+ duodenal polyp involving 2/3 the circumference of the 2nd portion of the duodenum. Biopsied., The entire examined stomach was normal. Impression: 5cm duodenal polyp. 2/3 the circumference. Biopsied. Estimated Blood Loss: Estimated blood loss: none. Recommendation: - Await pathology results. - Discuss in clinic the risks and benefits endoscopic resection - Patient has a contact number available for emergencies. The signs and symptoms of potential delayed complications were discussed with the patient. Return to normal activities tomorrow. Written discharge instructions were provided to the patient. Procedure Code(s): --- Professional --- 77474 Diagnosis Code(s): --- Professional --- D49.0 CPT copyright 2020 [employer]. All rights reserved. Attending Participation: I personally performed the entire procedure. Scope In: 2:20:14 PM Scope Out: 2:27:06 PM MD Devaughn Bolivar MD 12/08/2023 2:34:39 PM This report has been signed electronically by Devaughn Farias MD Number of Addenda: 0 Note Initiated On: 12/08/2023 1:56 PM Q3 Patient Name: Alexandria Dodson Procedure Date: 04/26/2024 7:29 AM Date of : 1940 Admit Type: Outpatient Age: 83 Gender: Male Note Status: Finalized Attending MD: Devaughn Farias MD, [id number] Procedure: Upper GI endoscopy Indications: Surveillance procedure for duodenal adenoma Providers: Devaughn Farias MD, Lady Mandy Delaney (Fellow) Patient Profile: This is an 83 year old male. Refer to note in patient chart for documentation of history and physical. Referring Physician: Devaughn Farias MD (Referring MD) Medicines: Monitored Anesthesia Care Complications: No immediate complications. Requesting Provider: Procedure: Pre-Anesthesia Assessment: - Prior to the procedure, a History and Physical was performed, and patient medications and allergies were reviewed. The patient's tolerance of previous anesthesia was also reviewed. The risks and benefits of the procedure and the sedation options and risks were discussed with the patient. All questions were answered, and informed consent was obtained. Prior Anticoagulants: The patient has taken Plavix (clopidogrel) and aspirin, last dose was 5 days prior to procedure. ASA Grade Assessment: III - A patient with severe systemic disease. After reviewing the risks and benefits, the patient was deemed in satisfactory condition to undergo the procedure. After obtaining informed consent, the endoscope was passed under direct vision. Throughout the procedure, the patient's blood pressure, pulse, and oxygen saturations were monitored continuously. The Endoscope was introduced through the mouth, and advanced to the second part of duodenum. The Duodenoscope was introduced through the mouth, and advanced to the second part of duodenum. The upper GI endoscopy was accomplished without difficulty. The patient tolerated the procedure well. Moderate Sedation: MAC anesthesia was administered by the anesthesia team. Findings: A small hiatal hernia was present. The exam of the esophagus was otherwise normal. The entire examined stomach was normal. One 50 mm sessile and semi-pedunculated polyp was found in the second portion of the duodenum. This polyp involved 3/4 of the duodenal circumference. It did not involve the ampulla, which was visualized with both GIF and side viewer scope. Biopsies were taken with a cold forceps for histology. The exam was otherwise without abnormality. Impression: - Small hiatal hernia. - Normal stomach. - One duodenal polyp. Biopsied. - The polyp involves 3/4 the circumference of the duodenal lumen, adjacent but does not involve the ampulla. Endoscopic resection is technically possible but would result in significant risk of post resection stricture and bleeding. Previously discussed with patient, would prefer surveillance at this point in regards to endoscopy. Will also see surgery to explore surgical options. - The examination was otherwise normal. Estimated Blood Loss: Estimated blood loss: none. Recommendation: - Patient has a contact number available for emergencies. The signs and symptoms of potential delayed complications were discussed with the patient. Return to normal activities tomorrow. Written discharge instructions were provided to the patient. - Resume previous diet. - Continue present medications. - Await pathology results. - Repeat upper endoscopy for surveillance based on path. Procedure Code(s): --- Professional --- 85911 Diagnosis Code(s): --- Professional --- K44.9 K31.7 CPT copyright 2020 [employer]. All rights reserved. Attending Participation: I was present and participated during the entire procedure, including non-wiseman portions. 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 Does have extensive cardiac history. No past abdominal surgical history - Recommend surgical resection of duodenal polyp. - MRCP to rule out pancreatic divisim ( will get CXR given pacemaker) - Will require Cardiology consult for risk assessment SIGNATURE: Valdo Serna MD DATE of SERVICE: 04/26/2024 TIME of SERVICE: 9:31 AM [facility] [place] STAFF PHYSICIAN NOTE OF PERSONAL INVOLVEMENT IN CARE I have reviewed the consult note obtained and documented by the resident and I personally participated in the wiseman components. I have discussed the case and management of the patient's care. The following comments revise or confirm relevant wiseman components of the note. 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 Hx CAD, pacemaker but has good functional status PLAN: Would like MRI pancreas to see if has divisum (has implications for surgery) - will see if he is a candidate for MRI/device program here Surgery would entail segmental duodenal resection, cholecystectomy Will need pre-op cardiac risk eval Medical Decision Making: Problems: Moderate: New problem with uncertain prognosis Data: Unique test result(s) reviewed: 1 Unique test(s) ordered: 1 Risk: Moderate: Moderate risk from testing/treatment Medical Decision Making Level: 4 - Moderate Carson Monroe MD documented in this encounter [facility] 04-26-2024 Nurse Note AMBULATORY PATIENT EDUCATION NOTE TOPIC: GI PROCEDURES: Esophagogastroduodenoscopy(EGD) with or without biopies based on clinical findings, removal of polyps or lesions READINESS TO LEARN INSTRUCTION PROVIDED TO: Patient and family member COGNITIVE ABILITY: Alert and oriented PTED MOTIVATION TO LEARN: Interested FAMILY SUPPORT: High - Very involved in pt care IPATIENT LEARNS BEST BY: Multiple Methods FACTORS AFFECTING LEARNING: None PHYSICAL LIMITATIONS AFFECTING LEARNING: None LEARNING RESPONSE METHOD OF INSTRUCTION: Individual instruction PATIENT / FAMILY RESPONSE: Verbalizes understanding of: WORSENING CONDITION-Signs and symptoms of a worsening condition that warrant a call to the physician FOLLOW-UP PLAN: Patient instructed to call with any further issues SUPPLEMENTAL MATERIAL: Procedure Discharge Instructions REFERRAL (RECOMMENDATION): None [facility] 04-26-2024 Note Q3 Patient Name: Alexandria Dodson Procedure Date: 04/26/2024 7:29 AM Date of : 1940 Admit Type: Outpatient Age: 83 Gender: Male Note Status: Finalized Attending MD: Devaughn Farias MD, [id number] Procedure: Upper GI endoscopy Indications: Surveillance procedure for duodenal adenoma Providers: Devaughn Farias MD, Lady Mandy Delaney (Fellow) Patient Profile: This is an 83 year old male. Refer to note in patient chart for documentation of history and physical. Referring Physician: Devaughn Farias MD (Referring MD) Medicines: Monitored Anesthesia Care Complications: No immediate complications. Requesting Provider: Procedure: Pre-Anesthesia Assessment: - Prior to the procedure, a History and Physical was performed, and patient medications and allergies were reviewed. The patient's tolerance of previous anesthesia was also reviewed. The risks and benefits of the procedure and the sedation options and risks were discussed with the patient. All questions were answered, and informed consent was obtained. Prior Anticoagulants: The patient has taken Plavix (clopidogrel) and aspirin, last dose was 5 days prior to procedure. ASA Grade Assessment: III - A patient with severe systemic disease. After reviewing the risks and benefits, the patient was deemed in satisfactory condition to undergo the procedure. After obtaining informed consent, the endoscope was passed under direct vision. Throughout the procedure, the patient's blood pressure, pulse, and oxygen saturations were monitored continuously. The Endoscope was introduced through the mouth, and advanced to the second part of duodenum. The Duodenoscope was introduced through the mouth, and advanced to the second part of duodenum. The upper GI endoscopy was accomplished without difficulty. The patient tolerated the procedure well. Moderate Sedation: MAC anesthesia was administered by the anesthesia team. Findings: A small hiatal hernia was present. The exam of the esophagus was otherwise normal. The entire examined stomach was normal. One 50 mm sessile and semi-pedunculated polyp was found in the second portion of the duodenum. This polyp involved 3/4 of the duodenal circumference. It did not involve the ampulla, which was visualized with both GIF and side viewer scope. Biopsies were taken with a cold forceps for histology. The exam was otherwise without abnormality. Impression: - Small hiatal hernia. - Normal stomach. - One duodenal polyp. Biopsied. - The polyp involves 3/4 the circumference of the duodenal lumen, adjacent but does not involve the ampulla. Endoscopic resection is technically possible but would result in significant risk of post resection stricture and bleeding. Previously discussed with patient, would prefer surveillance at this point in regards to endoscopy. Will also see surgery to explore surgical options. - The examination was otherwise normal. Estimated Blood Loss: Estimated blood loss: none. Recommendation: - Patient has a contact number available for emergencies. The signs and symptoms of potential delayed complications were discussed with the patient. Return to normal activities tomorrow. Written discharge instructions were provided to the patient. - Resume previous diet. - Continue present medications. - Await pathology results. - Repeat upper endoscopy for surveillance based on path. Procedure Code(s): --- Professional --- 53462 Diagnosis Code(s): --- Professional --- K44.9 K31.7 CPT copyright 2020 [employer]. All rights reserved. Attending Participation: I was present and participated during the entire procedur (more content not included)... [facility] 04-26-2024 Nurse Note AMBULATORY PATIENT EDUCATION NOTE TOPIC: GI PROCEDURES: Esophagogastroduodenoscopy(EGD) with or without biopies based on clinical findings, removal of polyps or lesions READINESS TO LEARN INSTRUCTION PROVIDED TO: Patient and family member COGNITIVE ABILITY: Alert and oriented PTED MOTIVATION TO LEARN: Interested FAMILY SUPPORT: High - Very involved in pt care IPATIENT LEARNS BEST BY: Multiple Methods FACTORS AFFECTING LEARNING: None PHYSICAL LIMITATIONS AFFECTING LEARNING: None LEARNING RESPONSE METHOD OF INSTRUCTION: Individual instruction PATIENT / FAMILY RESPONSE: Verbalizes understanding of: WORSENING CONDITION-Signs and symptoms of a worsening condition that warrant a call to the physician FOLLOW-UP PLAN: Patient instructed to call with any further issues SUPPLEMENTAL MATERIAL: Procedure Discharge Instructions REFERRAL (RECOMMENDATION): None PRE OP LEARNING ASSESSMENT PROCEDURE/SURGERY: GI PROCEDURES: EGD READINESS TO LEARN COGNITIVE ABILITY: Alert and oriented MOTIVATION TO LEARN: Eager FAMILY SUPPORT: Unable to assess - Family not present PATIENT LEARNS BEST BY: Individual Instruction Verbal Instruction FACTORS AFFECTING LEARNING: None PHYSICAL LIMITATIONS AFFECTING LEARNING: None Electronically Signed By: Betty Argueta RN In Department: GASTROENTEROLOGY documented in this encounter [facility] 04-26-2024 History and physical note HISTORY AND PHYSICAL Alexandria Dodson, 83 year old male with a duodenal adenoma, here for EGD and endoscopic resection. Current history and physical on file: Yes Is a new History and Physical required for today's visit? No Indication for procedure: Other - duodenal PROCEDURE(S) SCHEDULED FOR: EGD (Esophagogastroduodenoscopy) with or without biopsies, removal of polyps or lesions, dilation ( any means), treatment of bleeding ( any means), Barrx treatment of Ebenezer's Esophagus, image tube placement or cryo therapy treatment based on clinical findings. BASELINE BEHAVIOR: Calm BASELINE ORIENTATION: A & O x3 All medications and allergies reviewed: Yes Skin Assessment: Warm dry mucus membranes pink Airway/Respiratory Assessment: Airway: visualization of the uvula- Yes Mouth: opening greater than 2 fingerbreadths- Yes Neck: full range of motion- Yes Breath sounds clear/equal- Yes Cardiac Assessment: Regular rate and rhythm without murmur Abdominal Assessment: Abdomen soft, non-tender, no masses or organomegaly. Sedation Plan: MAC Additional Comments: None Lady Mandy Delaney MD [facility] Work Phone: 04-26-2024 History and physical note HISTORY AND PHYSICAL Alexandria Dodson, 83 year old male with a duodenal adenoma, here for EGD and endoscopic resection. Current history and physical on file: Yes Is a new History and Physical required for today's visit? No Indication for procedure: Other - duodenal PROCEDURE(S) SCHEDULED FOR: EGD (Esophagogastroduodenoscopy) with or without biopsies, removal of polyps or lesions, dilation ( any means), treatment of bleeding ( any means), Barrx treatment of Ebenezer's Esophagus, image tube placement or cryo therapy treatment based on clinical findings. BASELINE BEHAVIOR: Calm BASELINE ORIENTATION: A & O x3 All medications and allergies reviewed: Yes Skin Assessment: Warm dry mucus membranes pink Airway/Respiratory Assessment: Airway: visualization of the uvula- Yes Mouth: opening greater than 2 fingerbreadths- Yes Neck: full range of motion- Yes Breath sounds clear/equal- Yes Cardiac Assessment: Regular rate and rhythm without murmur Abdominal Assessment: Abdomen soft, non-tender, no masses or organomegaly. Sedation Plan: MAC Additional Comments: None Lady Mandy Delaney MD documented in this encounter [facility] 04-26-2024 Note Q3 Patient Name: Alexandria Dodson Procedure Date: 04/26/2024 7:29 AM Date of : 1940 Admit Type: Outpatient Age: 83 Gender: Male Note Status: Finalized Attending MD: Devaughn Farias MD, [id number] Procedure: Upper GI endoscopy Indications: Surveillance procedure for duodenal adenoma Providers: Devaughn Farias MD, Lady Mandy Delaney (Fellow) Patient Profile: This is an 83 year old male. Refer to note in patient chart for documentation of history and physical. Referring Physician: Devaughn Farias MD (Referring MD) Medicines: Monitored Anesthesia Care Complications: No immediate complications. Requesting Provider: Procedure: Pre-Anesthesia Assessment: - Prior to the procedure, a History and Physical was performed, and patient medications and allergies were reviewed. The patient's tolerance of previous anesthesia was also reviewed. The risks and benefits of the procedure and the sedation options and risks were discussed with the patient. All questions were answered, and informed consent was obtained. Prior Anticoagulants: The patient has taken Plavix (clopidogrel) and aspirin, last dose was 5 days prior to procedure. ASA Grade Assessment: III - A patient with severe systemic disease. After reviewing the risks and benefits, the patient was deemed in satisfactory condition to undergo the procedure. After obtaining informed consent, the endoscope was passed under direct vision. Throughout the procedure, the patient's blood pressure, pulse, and oxygen saturations were monitored continuously. The Endoscope was introduced through the mouth, and advanced to the second part of duodenum. The Duodenoscope was introduced through the mouth, and advanced to the second part of duodenum. The upper GI endoscopy was accomplished without difficulty. The patient tolerated the procedure well. Moderate Sedation: MAC anesthesia was administered by the anesthesia team. Findings: A small hiatal hernia was present. The exam of the esophagus was otherwise normal. The entire examined stomach was normal. One 50 mm sessile and semi-pedunculated polyp was found in the second portion of the duodenum. This polyp involved 3/4 of the duodenal circumference. It did not involve the ampulla, which was visualized with both GIF and side viewer scope. Biopsies were taken with a cold forceps for histology. The exam was otherwise without abnormality. Impression: - Small hiatal hernia. - Normal stomach. - One duodenal polyp. Biopsied. - The polyp involves 3/4 the circumference of the duodenal lumen, adjacent but does not involve the ampulla. Endoscopic resection is technically possible but would result in significant risk of post resection stricture and bleeding. Previously discussed with patient, would prefer surveillance at this point in regards to endoscopy. Will also see surgery to explore surgical options. - The examination was otherwise normal. Estimated Blood Loss: Estimated blood loss: none. Recommendation: - Patient has a contact number available for emergencies. The signs and symptoms of potential delayed complications were discussed with the patient. Return to normal activities tomorrow. Written discharge instructions were provided to the patient. - Resume previous diet. - Continue present medications. - Await pathology results. - Repeat upper endoscopy for surveillance based on path. Procedure Code(s): --- Professional --- 59899 Diagnosis Code(s): --- Professional --- K44.9 K31.7 CPT copyright 2020 [employer]. All rights reserved. Attending Participation: I was present and participated during the entire procedure, including non-wiseman portions. Scope In: 8:05:48 AM Scope Out: 8:16:58 AM MD Devaughn Bolivar MD 04/26/2024 8:27:48 AM This report has been signed electronically by Devaughn Farias MD Number of Addenda: 0 Note Initiated On: 04/26/2024 7:29 AM [facility] 04-26-2024 Nurse Note PRE OP LEARNING ASSESSMENT PROCEDURE/SURGERY: GI PROCEDURES: EGD READINESS TO LEARN COGNITIVE ABILITY: Alert and oriented MOTIVATION TO LEARN: Eager FAMILY SUPPORT: Unable to assess - Family not present PATIENT LEARNS BEST BY: Individual Instruction Verbal Instruction FACTORS AFFECTING LEARNING: None PHYSICAL LIMITATIONS AFFECTING LEARNING: None Electronically Signed By: Betty Argueta RN In Department: GASTROENTEROLOGY [facility] 04-19-2024 Telephone encounter Note Attempted to reach the patient at the contact number that they provided [phone] (home) . Unable to speak with patient so without identifying the patient the following information was left on their voice mail: Date of procedure, location and report time A message was left informing the patient/patient national sales representative they must have a responsible adult accompany them to their procedure; and remain in the endoscopy area until they are discharged. Failure to have a responsible adult accompany the patient to their procedure appointment prevents the use of sedation or anesthesia for their procedure; and can result in cancellation of the procedure NPO instructions were reviewed. Instructions to contact their primary care provider regarding their medications and which medications to stop in preparation for their procedure Number to call with questions or concerns [phone] Number to call to cancel their procedure [phone] Candi Banda RN [facility] 04-19-2024 Miscellaneous Notes Attempted to reach the patient at the contact number that they provided [phone] (home) . Unable to speak with patient so without identifying the patient the following information was left on their voice mail: Date of procedure, location and report time A message was left informing the patient/patient national sales representative they must have a responsible adult accompany them to their procedure; and remain in the endoscopy area until they are discharged. Failure to have a responsible adult accompany the patient to their procedure appointment prevents the use of sedation or anesthesia for their procedure; and can result in cancellation of the procedure NPO instructions were reviewed. Instructions to contact their primary care provider regarding their medications and which medications to stop in preparation for their procedure Number to call with questions or concerns [phone] Number to call to cancel their procedure [phone] Candi Banda RN documented in this encounter [facility] 12-08-2023 Note HNO ID: [id number] Author: CORRIE PICKETT RN Service: Gastroenterology Author Type: Registered Nurse Type: Nursing Progress Note Filed: 12/08/2023 15:07 Note Text: Dr Farias spoke with patient Prashant ED AND Kemi prior to discharge from unit [facility] 12-08-[address] Farias spoke with patient Alexandria and ED & Kemi prior to discharge from unit AMBULATORY PATIENT EDUCATION NOTE TOPIC: GI PROCEDURES: Esophagogastroduodenoscopy(EGD) with or without biopies based on clinical findings, removal of polyps or lesions READINESS TO LEARN INSTRUCTION PROVIDED TO: Patient and family member COGNITIVE ABILITY: Alert and oriented PTED MOTIVATION TO LEARN: Interested FAMILY SUPPORT: High - Very involved in pt care IPATIENT LEARNS BEST BY: Individual Instruction Written Instruction - Hand-outs Verbal Instruction FACTORS AFFECTING LEARNING: None PHYSICAL LIMITATIONS AFFECTING LEARNING: None LEARNING RESPONSE METHOD OF INSTRUCTION: Individual instruction PATIENT / FAMILY RESPONSE: Verbalizes understanding of: WORSENING CONDITION-Signs and symptoms of a worsening condition that warrant a call to the physician FOLLOW-UP PLAN: Patient instructed to call with any further issues SUPPLEMENTAL MATERIAL: Procedure Discharge Instructions REFERRAL (RECOMMENDATION): None PRE OP LEARNING ASSESSMENT PROCEDURE/SURGERY: GI PROCEDURES: EGD and EUS READINESS TO LEARN COGNITIVE ABILITY: Alert and oriented MOTIVATION TO LEARN: Interested FAMILY SUPPORT: Unable to assess - Family not present PATIENT LEARNS BEST BY: Individual Instruction Written Instruction - Hand-outs Verbal Instruction FACTORS AFFECTING LEARNING: None PHYSICAL LIMITATIONS AFFECTING LEARNING: None Electronically Signed By: Tyree Garza RN In Department: GASTROENTEROLOGY documented in this encounter [facility] 12-08-2023 Note HNO ID: [id number] Author: DONI ZACARIAS APRN.[employer] Service: ? Author Type: Nurse Boiler Helper Type: Anesthesia Procedure Notes Filed: 12/08/2023 14:23 Note Text: ANESTHESIOLOGY PROCEDURE NOTE Airway General Information Procedure Start Time/Medication Administration: 12/08/2023 2:16 PM Patient location during procedure: OR Patient identity confirmed: arm band, care team driver and patient Staffing [employer]: Doni Zacarias APRN.[employer] Performed by: [employer] Indications and Patient Condition Indications for airway management: anesthesia Preoxygenated: yes anesthesia circuit Patient position: sniffing Method: asleep Difficult Mask: No Final Airway Details Final airway type: endotracheal airway Final Endotracheal Airway: ETT Cuffed: yes Successful intubation technique: video laryngoscopy Devices used: [employer] Endotracheal tube insertion site: oral ETT size (mm): 7.5 Measured from: lips Measurement (cm): 21 Placement verified by: capnometry Cormack-Lehane Classification: grade I - full view of glottis Number of attempts at approach: 1 Airway not difficult SIGNATURE: Doni Zacarias APRN.[employer] PATIENT NAME: Alexandria Dodson DATE: December 08, 2023 TIME: 2:22 PM CSN: [id number] [facility] 12-08-2023 Note Q3 Patient Name: Alexandria Dodson Procedure Date: 12/08/2023 1:56 PM Date of : 1940 Admit Type: Outpatient Age: 83 Gender: Male Note Status: Finalized Attending MD: Devaughn Farias MD, [id number] Procedure: Upper GI endoscopy Indications: For therapy of duodenal tumor Providers: Devaughn Farias MD Patient Profile: Refer to note in patient chart for documentation of history and physical. Referring Physician: Carlos To (Referring MD) Medicines: General Anesthesia with intubation Complications: No immediate complications. Requesting Provider: Procedure: Pre-Anesthesia Assessment: - ASA Grade Assessment: II - A patient with mild systemic disease. After obtaining informed consent, the endoscope was passed under direct vision. Throughout the procedure, the patient's blood pressure, pulse, and oxygen saturations were monitored continuously. The Endoscope was introduced through the mouth, and advanced to the second part of duodenum. Moderate Sedation: MAC anesthesia was administered by the anesthesia team. Findings: The examined esophagus was normal. The entire examined stomach was normal. There is 5cm+ duodenal polyp involving 2/3 the circumference of the 2nd portion of the duodenum. Biopsied., The entire examined stomach was normal. Impression: 5cm duodenal polyp. 2/3 the circumference. Biopsied. Estimated Blood Loss: Estimated blood loss: none. Recommendation: - Await pathology results. - Discuss in clinic the risks and benefits endoscopic resection - Patient has a contact number available for emergencies. The signs and symptoms of potential delayed complications were discussed with the patient. Return to normal activities tomorrow. Written discharge instructions were provided to the patient. Procedure Code(s): --- Professional --- 56641 Diagnosis Code(s): --- Professional --- D49.0 CPT copyright 2020 [employer]. All rights reserved. Attending Participation: I personally performed the entire procedure. 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 Farias Rto 6 months Sep, Acid reflux (ICD-10 - K21.9) Stop famotidine [employer] Other 01-17-2024 NoteHNO ID: [id number] Author: DEVAUGHN FARIAS MD Service: ? Author Type: Physician Type: Progress Notes Filed: 10/15/2023 13:53 Note Text: [facility] New Visit HPI Alexandria Dodson is a 82 year old male who 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 This consult was requested by for evaluation of duodenal adenoma. My final recommendations will be communicated back to the requesting health care provider by way of shared medical record or [place] postal services. Note from Office Visit 09/04/2023, Zuleika Mack MD. 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 He has had chronic sharp epigastric pain, heartburn and weight loss (-10lb in 3-4 months). Started taking Pepcid 40mg and the occaisional epigastric pain and heartburn become less frequent. The last episode of the epigastric pain was about a month ago, which lasted for an hour and subsided on its own. Given weight loss and upper GI symptoms, EGD was ordered by his PCP (Dr. Vance), which was done on 08/05/[address] Gallo ([facility] - Dr. Jules Gallo [phone]). Full EGD report is not available in the CareEverywhere. Pathology was sent to [facility] which showed tubular adenoma in duodenum (low-grade dysplasia). His family states that adenoma (or adenomas?) was not fully removed during the procedure. He denies hematochezia, odynophagia, dysphagia, nausea, vomiting, lower abdominal pain or diarrhea. Constipation has been well managed by taking oatmeal, fruits and psyllium. Colonoscopy was done on 10/26/2017 - reportedly normal, with no plan to repeat. Sister and Daughter diagnosed with Crohn's disease. 82/M with PMHx of GERD, family history of Crohn's (sister and daughter), who had EGD locally on 08/05/2023 which showed pathology report with duodenal adenoma (low-grade dysplasia). Full report in terms of the location, size, number of the adenoma are not available but will be obtained. He will likely need endoscopic removal of the duodenal adenoma via snare, EMR, ESD, or APC depending on Dr. Farias's assessment. REVIEWED ITEMS N/A Current Outpatient Medications Medication Sig Dispense Refill ubidecarenone Q-10 (CO Q-10) 10 mg cap Co Q 10 Active LOW-DOSE ASPIRIN ORAL Low-Dose Aspirin Active citalopram (CELEXA) 20 mg tablet Take 20 mg by mouth. clopidogrel (PLAVIX) 75 mg tablet Take 75 mg by mouth. nitroglycerin sublingual (NITROQUICK) 0.4 mg SL tablet Dissolve 0.4 mg under the tongue. lutein 20 mg cap Take 1 capsule by mouth two times a day. pedi multivit no.12 w-fluoride (IZQDVSPCUSSOX-YDXOMYYV-EOZCZ A ORAL) Take by mouth. Cholecalciferol, Vitamin D3, 25 mcg (1,000 unit) cap Cholecalciferol (Vitamin D3) (Vitamin D3) 25 mcg (1,000 unit) Capsule Active 1000 UNIT PO Twice daily November 01, 2019 12:00am famotidine (PEPCID) 40 mg tablet Take 40 mg by mouth. rosuvastatin (CRESTOR) 40 mg tablet Take 40 mg by mouth. ranolazine ER (RANEXA) 500 mg 12 hr tablet Take 500 mg by mouth every 12 hours. Glucosamine HCl 1,500 mg tab Take 1 tablet by mouth. psyllium husk (METAMUCIL) 3.4 gram/5.4 gram powd Take 1 1e11 [employer] by mouth. No current facility-administered medications for this visit. ALLERGIES Allergen Reactions Erythromycin GI Upset PHYSICAL EXAMINATION Appeared well LABS Hemoglobin (g/dL) Date Value 03/03/2002 15.2 Hematocrit (%) Date Value 03/03/2002 42.8 WBC (k/uL) Date Value 03/03/2002 6.82 Platelet Count (K/uL) Date Value 03/03/2002 249 Glucose (mg/dL) Date Value 03/03/2002 97 Potassium (mmol/L) Date Value 03/03/2002 4.4 Sodium (mmol/L) Date Value 03/03/2002 141 Chloride (mmol/L) Date Value 03/03/2002 106 CO2 (mmol/L) Date Value 03/03/2002 24 Creatinine (mg/dL) Date Value 03/03/2002 1.0 BUN (mg/dL) Date Value 03/03/2002 17 Anion Gap (mmol/L) Date Value 03/03/2002 11 Calcium (mg/dL) Date Value 03/03/[address] To's note ADDENDUM) Obtained EGD report from [facility], will scan into [employer] and send a message to Dr. Farias. Findings Duodenum: there is heterogeneous appearing tissue just past the sweep, suspicious for ectopic gastric tissue, biopsies obtained. Otherwise bulb and descending portion appeared normal. Stomach: pyloric channel, antrum, body, fundus and cardia, including retroflexed views appear normal. Esophagus: Diaphragmatic hiatus was 44cm from incisors and GE junction was at 44cm from incisors. Squamocolumnar junction was at 44cm from incisors. Mucosa appeared normal. Assessment ASSESSMENT/ PLAN: A 82 yo male, CAD with 8 cardiac stents, latest, last year. Referred for endoscopic resection of a duodenal polyp. Outside report does not specify size. Discussed R/B/A of endoscopic resection and the (more content not included)... [facility]01-05-2024 History of Present illness Narrative* Koby Mcclain MD - 10/02/2023 2:10 PM EST Subjective Alexandria Dodson is a 82 y.o. male Chief Complaint Follow-up HPI Patient returns in follow-up of problems as noted. He has done well in the interim. He is having anendoscopic procedure done and this was discussed in detail and I believe he is a suitable candidate. I believe he is been instructed to hold clopidogrel and I believe that is a reasonable strategy. In regards to his coronary disease the findings of his recent angiogram were discussed again. He does have some anginal symptoms but they were improved with 500 mg twice a day of ranolazine and because of this we discussed intensification and he is willing to give it a try to see if symptoms could i mprove. He is otherwise doing well and his therapy is adequate and appropriate with the combinationof rosuvastatin and clopidogrel adequately treating his coronary disease and also his cerebrovascular disease. Blood pressure is good and because of all the above we suggest no adjustments or changesin therapy except for the aforementioned increase in ranolazine. We did advocate the merits of dietexercise and weight loss. Visit Vitals BP 116/66 (BP Location: Left arm, Patient Position: Sitting) Pulse 76 Ht 1.778 m (5' 10 ) Wt 87.1 kg (192 lb) BMI 27.55 kg/m Smoking Status Former BSA 2.07 m Objective Physical Exam Constitutional: Appearance: Normal appearance. He is normal weight. HENT: Nose: Nose normal. Neck: Vascular: No carotid bruit. Cardiovascular: Rate and Rhythm: Normal rate. Pulses: Normal pulses. Heart sounds: Normal heart sounds. Pulmonary: Effort: Pulmonary effort is normal. Abdominal: General: Bowel sounds are normal. Palpations: Abdomen is soft. Genitourinary: Rectum: Normal. Musculoskeletal: General: Normal range of motion. Cervical back: Normal range of motion. Right lower leg: No edema. Left lower leg: No edema. Skin: General: Skin is warm and dry. Neurological: General: No focal deficit present. Mental Status: He is alert. Psychiatric: Mood and Affect: Mood normal. Behavior: Behavior normal. Thought Content: Thought content normal. Judgment: Judgment normal. Current Medications Current Outpatient Medications: citalopram (CeleXA) 20 mg tablet, Take 1 tablet (20 mg) by mouth once daily., Disp: , Rfl: clopidogrel (Plavix) 75 mg tablet, Take 1 tablet (75 mg) by mouth once daily., Disp: , Rfl: coenzyme L84-iyguayu E 100-5 mg-unit capsule, Take 1 capsule by mouth 2 times a day., Disp: , Rfl: famotidine (Pepcid) 40 mg tablet, Take 1 tablet (40 mg) by mouth once daily., Disp: , Rfl: glucosamine HCl 1,500 mg tablet, Take 1 tablet by mouth see administration instructions., Disp: , Rfl: lutein 20 mg capsule, Take 1 capsule by mouth 2 times a day., Disp: , Rfl: nitroglycerin (Nitrostat) 0.4 mg SL tablet, Place 1 tablet (0.4 mg) under the tongue every 5 minutes if needed., Disp: , Rfl: ranolazine (Ranexa) 500 mg 12 hr tablet, TAKE 1 TABLET BY MOUTH EVERY 12 HOURS, Disp: 180 tablet, Rfl: 3 rosuvastatin (Crestor) 40 mg tablet, Take 1 tablet (40 mg) by mouth once daily., Disp: , Rfl: Assessment/Plan 1. ASCVD (arteriosclerotic cardiovascular disease) No progression of anginal symptoms. In fact they are improved on low-dose ranolazine. We will increase dosage. 2. Mixed hyperlipidemia Good control on current therapy. No adjustment necessary. 3. Primary hypertension Good control on current therapy. No adjustments are necessary. 4. Pacemaker Device checks are reviewed and they are satisfactory. No significant arrhythmias necessitating adjustments in therapy. 5. SSS (sick sinus syndrome) (CMS/HCC) Mitigated with pacemaker implantation. Scribe Attestation By signing my name below, I, Autumn CHANG , Scribfior attest that this documentation has been prepared under the direction and in the presence of Ny Mcclain MD. documented in [facility] Work Phone: 1(870) 401-528101-05-2024 Instructions* Patient Instructions* Autumn Samuels LPN - 10/02/2023 2:10 PM EST Please bring all medicines, vitamins, and herbal supplements with you when you come to the office. Prescriptions will not be filled unless you are compliant with your follow up appointments or have a follow up appointment scheduled as per instruction of your physician. Refills should be requested at the time of your visit. Pacemaker/Defibrillator follow up per routine documented in this encounterD[facility] Work Phone: 1(305) 440-588012-08-2023 Miscellaneous Notes* Telephone Encounter - Joe Dawson - 09/04/2023 9:44 AM ESTSummary: Appointment Question [place]eb[place], patient wanted to reach out asking if the scheduled date to see is too far out. Currently scheduled to see Dr. Farias in November for an EUS. Patient would like to be contacted in response Home: [phone] Cell phone: [phone] [facility]* Encounter Date Diagnosis Assessment Notes Treatment Notes Treatment Clinical Notes Jun, GERD (gastroesophageal reflux disease) (ICD-10 - K21.9) Patient reports that he has a history of GERD that he treats with OTC Pepcid with relief Patient is advised to have an EGD scheduled today, prep instructions given today Risks and benefits of procedure explained to patient; patient verbalizes understanding. Patient is to continue OTC Pepcid [employer] Other 05-15-2023 Discharge summary Author Jaqueline Ponce [facility] February 09, 2023 11:54am Note Date/Time February 09, 2023 11:51 am [facility] [address] [place] [address] Discharge Summary Signed Patient: Alexandria Dodson MR#: [id number] : 1940 Acct:[id number] Age/Sex: 82 / M Adm Date: 3 Loc: Room: Attending Dr: Jaqueline Ponce DO Copies to: Eloise Vance,DO Jaqueline Ponce, ~ Providers Date of Discharge: 02/09/23 Discharging Provider: Jaqueline Ponce Primary Care Provider: Eloise Vance Discharge Diagnosis (1) Angina pectoris: (2) Post PTCA: (3) Coronary artery disease: (4) Hyperlipemia: (5) Pacemaker: Final Diagnosis Final Discharge Diagnosis: 1. ASHD 2. Abnormal myocardial perfusion stress test 3. History of multivessel PCI's 4. 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 Widely patent LAD and ramus branch stents and normal left ventricular function Summary Hospital Course Hospital course: 82-year-old gentleman returns for elective left heart catheterization with abnormal stress imaging, mild class II anginal symptomatology, dizziness and exertional dyspnea. Catheterization revealed widely patent proximal LAD stents, ramus branch stents. AV continuation branch stent is restenosed at its origin as it comes off the ramus stents (T stenting technique in the past). This is unchanged from November 2022. Symptoms are somewhat mild in nature. AV continuation branch terminates into 2 very small posterior lateral vessels (small small amount of myocardium) Recommendations: Continue aggressive medical therapy; I would not engage and repeat bifurcation/T stenting technique at this juncture. Should the patient have accelerating angina clinically or increase use of nitroglycerin then we could potentially proceed with angioplasty of the AV continuation branch stent versus laser atherectomy. Condition Condition at Discharge: Stable Status at Discharge Functional status at discharge: independent ambulation Overall status at discharge: patient is back to baseline Time Spent with Patient Time spent providing/coordinating discharge services (# min): 15 Surgeries and Procedures Operation Date: 02/09/23 09:15 Actual Procedures p CL LHC & COR Angio - W Tripp Ponce DO Complications Complications: None Exam Physical Exam Vital Signs: Temp Pulse Resp BP Pulse Ox O2 Del Method 97.9 F 62 14 174/86 H 99 Room Air 02/09/23 07:48 02/09/23 07:48 02/09/23 07:48 02/09/23 07:48 02/09/23 07:48 02/09/23 07:48 Discharge Plan Discharge Plan Patient Disposition: Home Diet: Low-Cholesterol Additional Instructions: DISCHARGE INSTRUCTIONS FOR CARDIAC NOISE ABATEMENT ENGINEER PHONE NUMBER OF YOUR PHYSICIAN: [phone] PROCEDURE: Heart Cath The following instructions have been prepared to help you care for yourself, or be cared for upon your return home. 1. You were given conscious sedation. Do not operate a vehicle, power tools, make important decisions, or drink alcohol for 24 hours. You might be drowsy orlight headed. Return to the Emergency Room if you have trouble breathing, walking or nausea and vomiting. 2. FOR BLEEDING: Apply continuous pressure to the site and call 911. 3. Operative Site Care: Keep the dressing clean and dry. You may change the dressing only if soiled or wet. You may remove the dressing the following morning. You may wash over the puncture site in the shower. If the puncture site is at the wrist no soaking for 3 days. Some bruising or slight swelling may be present. -Signs of infection are redness, warmth, swelling, getting more sore, colored drainage, fever or chills. -Should the arm or leg become cold, numb, blue or white, call the agency sales representative immediately. 4. ACTIVITY: You are advised to go directly home from the hospital. Restrict your activities for the rest of the day. Resume light or normal activities tomorrow. Do not engage in any activity that will stress the puncture site. Avoid heavy lifting (over 15 lbs.), straining or bending at the catheter site for 48 hours after discharge. If the puncture site is at the wrist do not manipulate wrist for 24 hours and no lifting more than 3 lbs for 3 days. 5. DIET:You may eat your regular diet when you desire. 6. MEDICATIONS: Resume your daily prescription schedule. Prescriptions may be sent with you if needed. Use as directed. When taking pain medications, you may experience dizziness or drowsiness. Do not drink alcohol or drive when taking pain medications. 7. If you should experience episodes of angina e.g. chest discomfort, heaviness, tightness, pressure, burning, with or without radiation to the neck, jaws, arms, or back- Use 1 Nitrostat under your tongue every 5-10 minutes, and up to 3 tablets. If no relief- Call 911 and go to the nearest Emergency Room. -Notify the office for recurrent angina, chest pain or other concerns. You may NOT drive yourself home! Follow the medication instructions provided on your discharge. If the dosages and instructions on this sheet differ from the dosage and instructions on the bottle, follow the instructions on the bottle. [facility] is not responsible for incorrect prescription information provided by thepatient during their visit. Do not stop your medications without consulting your health care provider. Please take the list with you to your next doctor's appointment. Prescriptions: Continued clopidogrel 75 mg tablet 75 mg PO DAILY Patient Comments: citalopram 20 mg tablet 20 mg PO QPM Patient Comments: nitroglycerin 0.4 mg Tablet, Sublingual 0.4 mg Sublingual DIRECTED PRN (Reason: Chest Pain) glucosamine AQx-ixz-vxzvbumbfb 400-200-333 mg Tablet 1 tab PO DAILY Rx Instructions: give with meal/snack multivitamin Tablet 1 tab PO QAM cyanocobalamin (vitamin B-12) [Vitamin B-12] 1,000 mcg Tablet 1,000 mcg PO DAILY cholecalciferol (vitamin D3) [Vitamin D3] 25 mcg (1,000 unit) Capsule 1,000 unit PO BID lutein 40 mg Capsule 20 mg PO BID famotidine 40 mg tablet 40 mg PO DAILY PRN (Reason: Acid Reflux) rosuvastatin 40 mg tablet 40 mg PO QHS aspirin [Aspirin Childrens] 81 mg tablet,chewable 81 mg PO DAILY Qty: 30 12RF Follow Up: Koby Mcclain MD [Active Staff] - Eloise Vance DO [Primary Care Provider] - Documented By: Jaqueline Ponce DO 02/09/23 1145 Signed By: <Electronically signed by Jaqueline Ponce DO> 02/09/23 1154 [facility] Work Phone: [phone]) 498-802105-15-2023 [facility]23 Hospital Discharge instructions Additional Instructions DISCHARGE INSTRUCTIONS FOR CARDIAC NOISE ABATEMENT ENGINEER PHONE NUMBER OF YOUR PHYSICIAN: [phone] PROCEDURE: Heart Cath The following instructions have been prepared to help you care for yourself, or be cared for upon your return home. 1. You were given conscious sedation. Do not operate a vehicle, power tools, make important decisions, or drink alcohol for 24 hours. You might be drowsy or light headed. Return to the Emergency Room if you have trouble breathing, walking or nausea and vomiting. 2. FOR BLEEDING: Apply continuous pressure to the site and call 911. 3. Operative Site Care: Keep the dressing clean and dry. You may change the dressing only if soiled or wet. You may remove the dressing the following morning. You may wash over the puncture site in the shower. If the puncture site is at the wrist no soaking for 3 days. Some bruising or slight swelling may be present. -Signs of infection are redness, warmth, swelling, getting more sore, colored drainage, fever or chills. -Should the arm or leg become cold, numb, blue or white, call the agency sales representative immediately. 4. ACTIVITY: You are advised to go directly home from the hospital. Restrict your activities for the rest of the day. Resume light or normal activities tomorrow. Do not engage in any activity that will stress the puncture site. Avoid heavy lifting (over 15 lbs.), straining or bending at the catheter site for 48 hours after discharge. If the puncture site is at the wrist do not manipulate wrist for 24 hours and no lifting more than 3 lbs for 3 days. 5. DIET:You may eat your regular diet when you desire. 6. MEDICATIONS: Resume your daily prescription schedule. Prescriptions may be sent with you if needed. Use as directed. When taking pain medications, you may experience dizziness or drowsiness. Do not drink alcohol or drive when taking pain medications. 7. If you should experience episodes of angina e.g. chest discomfort, heaviness, tightness, pressure, burning, with or without radiation to the neck, jaws, arms, or back- Use 1 Nitrostat under your tongue every 5-10 minutes, and up to 3 tablets. If no relief- Call 911 and go to the nearest Emergency Room. -Notify the office for recurrent angina, chest pain or other concerns. You may NOT drive yourself home! Follow the medication instructions provided on your discharge. If the dosages and instructions on this sheet differ from the dosage and instructions on the bottle, follow the instructions on the bottle. [facility] is not responsible for incorrect prescription information provided by the patient during their visit. Do not stop your medications without consulting your health care provider. Please take the list with you to your next doctor's appointment.[facility] Work Phone: [phone]) 796-890803-13-2023 Discharge summary Author Jaqueline Ponce [facility] December 08, 2022 10:10am Note Date/Time December 08, 2022 10: 08am [facility] [address] [place], [place] [id number] Discharge Summary Signed Patient: Alexandria Dodson MR#: [id number] : 1940 Acct:[id number] Age/Sex: 82 / M Adm Date: 3 Loc: Room: [address] [place] [address]: Koby Mcclain MD Copies to: DO Jaqueline Sweet DO William Patrick McGuinn, MD~ Providers Date of Discharge: 12/08/22 Discharging Provider: Jaqueline Ponce Primary Care Provider: Eloise Vance Discharge Diagnosis (1) Angina pectoris: (2) Post PTCA: (3) Coronary artery disease: (4) Hyperlipemia: (5) Sick sinus syndrome: (6) Pacemaker: Final Diagnosis Final Discharge Diagnosis: Restenosis proximal LAD, positive IFR PCI proximal LAD with 3 x 22 [place] stent Summary Hospital Course Hospital course: 82-year-old gentleman with progressive class III to class IV angina and anginal equivalent, with exertional and resting chest discomfort, nitrate usage and shortness of breath. Catheterization was placed on my schedule electively. Patient has a history of prior PCI's of the proximal LAD, ostial/proximal circumflex and AV continuation branch bifurcation, proximal and distal RCA all of which dated back to 2007, 2008 and 2019 (last of which was proximal LAD and RCA) Catheterization revealed progressive ostial/proximal LAD disease, positive IFR at 0.77, widely patent circumflex ramus branch stent, Ailyn narrowed ostial AV continuation stent unchanged from 2020, and widely patent proximal and distal RCA stents with preserved LV function Patient underwent ad hoc PCI of the ostial through proximal LAD with 3 x 22 mm [place] given his symptoms and positive IFR Condition Condition at Discharge: Stable Status at Discharge Functional status at discharge: independent ambulation Overall status at discharge: patient is back to baseline Time Spent with Patient Time spent providing/coordinating discharge services (# min): 15 Surgeries and Procedures Operation Date: 12/08/22 09:15 Actual Procedures p CL LHC & COR Angio - W Tripp Ponce DO p CL FFR/IFR Initial Vessel - W Tripp Ponce DO p CL Stent 1st Vessel LAD JUAN CARLOS - W Tripp Ponce DO Complications Complications: None Diagnostic Studies Completed and Pending Studies Pending studies at discharge: 12/08/22 10:02 ECG 12 lead ECG Stat Exam Physical Exam Vital Signs: Temp Pulse Resp BP Pulse Ox O2 Del Method 98.0 F 72 14 172/87 H 98 Room Air 12/08/22 08:14 12/08/22 08:14 12/08/22 08:14 12/08/22 08:14 12/08/22 08:14 12/08/22 08:14 Discharge Plan Discharge Plan Patient Disposition: Home Diet: Low-Cholesterol Additional Instructions: DISCHARGE INSTRUCTIONS FOR ANGIOPLASTY/CORONARY/PERIPHERAL/STENT IMPLANT FOR ADULT ANTICOAGULATION -Since the greatest risk of a blood clot forming with the stent occurs in the first 2-3 weeks after implantation, you will need to take anticoagulants for at least 1 year ANTICOAGULATION MEDICATION [INSERT MEDICATION NAME: Aspirin 81mg once a day, Clopidogrel (Plavix) 75mg one tablet, STATIN MEDICATION [INSERT MEDICATION NAME: atorvastatin (Lipitor) 80 mg or rosuvastatin (Crestor) 40mg] [Drug-Eluting Stent (JUAN CARLOS) duration 1 year or greater DO NOT discontinue Plavix/Aspirin during the first few months regardless of what you are advised by your family doctor or pharmacist, without first calling the agency sales representative who implanted the stent. If you require pain relief during this time, please take only ACETAMINOPHEN (TYLENOL)- NO additional aspirin or ibuprofen. DISCHARGE ACTIVITIES ARE FOLLOWS: First week after discharge: -Take it easy at home, no strenuous activity. -Do not lift or pull objects over 10-15 pounds, including children, and groceries for four weeks. If puncture site is at wrist do NOT lift more than three pounds for three days. - May walk up stairs. -May shower. -No excessive scrubbing of the affected site (groin). -May ride in car. -May resume sexual intercourse after 1-2 weeks. -No MRI for 12 days. -May drive in 4-7 days. -If puncture site is at the wrist do not manipulate the wrist for 24 hours, and no soaking wrist for three days. Second Week: -May take a bath -May start walking 3 times a week for 15-20 minutes at a leisurely pace. You should be able to carry on a conversation comfortably without feeling winded. -No strenuous activity as in jogging, running, weight lifting, stair steppers, etc. until the agency sales representative approves these activities. Check with the agency sales representative on your first follow-up visit. CALL YOUR PHYSICIAN at [phone]: -If bleeding should occur from the catheter insertion site- apply pressure to the site then immediately call us. -Report any fever, redness, drainage, increased swelling, or firmness at the catheter insertion site. Some bruising or slight swelling may be present at the time of discharge. -Should arm or leg become cold, numb, white, or blue, contact the agency sales representative immediately. -IF you should experience episodes of angina, e.g. chest discomfort, heaviness, tightness, pressure burning with or without radiation to the neck, jaw, arms or back- use 1 Nitrostat tablet under your tongue every 5-10 minutes and up to three tablets. IF NO RELIEF, CALL 911 or GO TO THE NEAREST EMERGENCY ROOM. -Please notify our office if you have recurrent angina. -[Cardiac Rehab Education Provided. Participation in the Cardiopulmonary Rehabilitation program is recommended. Please call Central Scheduling at [phone] to schedule your appointment.] The attending agency sales representative or [facility] nurse clinician should provide you with specific instructions regarding activity, diet, medications, and further follow up for you. Follow the medication instructions provided on your discharge. If the dosages and instructions on this sheet differ from the dosage and instructions on the bottle, follow the instructions on the bottle. [facility] is not responsible for incorrect prescription information provided by thepatient during their visit. Do not stop your medications without consulting your health care provider. Please take the list with you to your next doctor's appointment. Prescriptions: New aspirin [Aspirin Childrens] 81 mg tablet,chewable 81 mg PO DAILY Qty: 30 12RF Continued clopidogrel 75 mg tablet 75 mg PO DAILY Patient Comments: citalopram 20 mg tablet 20 mg PO QPM Patient Comments: nitroglycerin 0.4 mg Tablet, Sublingual 0.4 mg Sublingual DIRECTED PRN (Reason: Chest Pain) multivitamin Tablet 1 tab PO QAM cyanocobalamin (vitamin B-12) [Vitamin B-12] 1,000 mcg Tablet 1,000 mcg PO DAILY cholecalciferol (vitamin D3) [Vitamin D3] 25 mcg (1,000 unit) Capsule 1,000 unit PO BID lutein 40 mg Capsule 20 mg PO BID famotidine 40 mg tablet 40 mg PO DAILY PRN (Reason: Acid Reflux) rosuvastatin 40 mg tablet 40 mg PO QHS glucosamine sulfate 750 mg Tablet 1,500 mg PO DIRECTED Rx Instructions: administer with a meal Follow Up: Koby Mcclain MD [Active Staff] - Eloise Vance DO [Primary Care Provider] - Documented By: Jaqueline Ponce DO 12/08/22 1003 Signed By: <Electronically signed by Jaqueline Ponce DO> 12/08/22 1010 [facility] Work Phone: 1(544) 324-732303-13-2023 [facility]07[facility]22 History of Present illness Narrative* Patient returns in follow-up of problems as noted. Over the last year he has continued to have worsening shortness of breath with exertion. He also describes anginal chest discomfort provoked with mild activity and relieved with rest. From time to time he is taken nitroglycerin he believes it helps. * He reminds me that he had coronary intervention several years ago. He was advised by the angiographer that the results were suboptimal and he is anxious regarding restenosis of the previously stented vessels. 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 * In light of his accelerated anginal symptomatology at low workloads which is relieved with rest and/or nitroglycerin I believe he is probably had progression of his coronary disease, as before, and Irecommended coronary angiography. Review of his medical therapy demonstrates his risk factors have been well controlled. He no longer smokes and both blood pressure and cholesterol are adequately managed. He is on ideal and/or optimize medical therapy and there does not appear to be any opportunityto improve his symptom management and hence I recommend angiographic evaluation * I did review with him, also, recent pacemaker checks and they demonstrate satisfactory device performance and no breakthrough arrhythmias that require intervention. [facility] [address] DO Work Phone: 1(359) 936-607101-29-2016 History general Narrative - Reported* Type Description Date Medical History 10/26/15 Colonoscopy- hemorrhoids Medical History maculodegeneration Medical History high cholesterol Surgical History back L5-S1 1995 Surgical History heartattack 2 stents pacemaker 07 Surgical History hernia 08 Surgical History 2 stents 08 Surgical History cardiac pacemeker Hospitalization History see above [employer] Other Chief complaint Narrative - Reported* ALEXANDRIA DODSON is being seen for a cardiovascular evaluation. * ALEXANDRIA DODSON is being seen for TESTING RESULTS. -[facility] [address] DO Work Phone: Evaluation noteNo assessment information available [facility] Work Phone: [facility]No [facility] [employer] Other Evaluation note* Diagnosis ASCVD (arteriosclerotic cardiovascular disease)- Primary Unspecified cardiovascular disease Mixed hyperlipidemia Primary hypertension Unspecified essential hypertension Pacemaker Cardiac pacemaker in situ SSS (sick sinus syndrome) (CMS/HCC) Sinoatrial node dysfunction documented in this encounter [facility] Work Phone: Evaluation note* Diagnosis Duodenal adenoma Benign neoplasm of duodenum, jejunum, and ileum [facility] Cardiac pacemaker in situ [facility] Diagnosis Adenomatous duodenal polyp Other specified disorder of stomach and duodenum [facility] Pacemaker- Primary 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 In the interim he is done well. We reviewed withhim the recent testing including echo Holter and stress test all of which were normal. He now appears more convinced that his heart condition is stable. He is obviously concerned because he is a primary caregiver for his . Treatment and management of his risk factors including hypertension and hyperlipidemia are adequate and appropriate. Sick sinus syndrome is obviously addressed appropriately with pacemaker implant and the device check demonstrates no paroxysms of atrial fibrillation. Because of all the above we believe he is doing well. We did advocate diet and weight loss.-[facility] [address] DO Work Phone: History of Present illness Narrative* Patient returns in follow-up of recent cardiac cath as well as ad hoc angioplasty. He states that he felt good for about 10 days following the intervention but now all of his symptoms have come back and he feels exactly the same as he did before the evaluation and intervention. * I advised him is almost impossible for this to be flow-limiting coronary disease. The only way the stent would fail would be abrupt stent thrombosis and this would usually be heralded by a significant large and/or potentially fatal heart attack. Nonetheless he is insistent that his symptoms have not improved. I reviewed his chart with him and suggested to him that his symptoms may in fact not be cardiac. This has been my theory and her hypothesis all along. Nonetheless he is insistent. * I advised him I reluctant to recommend angiographic evaluation. We do, though, know his coronary anatomy and I believe stress testing with isotope imaging would be an satisfactory alternative to repeating angiogram to evaluate his symptomatology. Because of this stress testing with isotope imaging will be done. Additionally we may confer with interventional cardiology if the patient is still unconvinced. * In the meantime we recommend continued therapy as before for his hypertension and hyperlipidemia. In passing we also note that his pacemaker implant demonstrates satisfactory device performance. No significant arrhythmias and satisfactory lead and battery performance. -[facility] [address] DO Work Phone: Hospital Discharge instructions Additional Instructions DISCHARGE INSTRUCTIONS FOR ANGIOPLASTY/CORONARY/PERIPHERAL/STENT IMPLANT FOR ADULT ANTICOAGULATION -Since the greatest risk of a blood clot forming with the stent occurs in the first 2-3 weeks after implantation, you will need to take anticoagulants for at least 1 year ANTICOAGULATION MEDICATION Aspirin 81mg once a day, Clopidogrel (Plavix) 75mg one tablet, STATIN MEDICATION Atorvastatin (Lipitor) 80 mg Drug-Eluting Stent (JUAN CARLOS) duration 1 year or greater DO NOT discontinue Plavix/Aspirin during the first few months regardless of what you are advised by your family doctor or pharmacist, without first calling the agency sales representative who implanted the stent. If you require pain relief during this time, please take only ACETAMINOPHEN (TYLENOL)- NO additional aspirin or ibuprofen. DISCHARGE ACTIVITIES ARE FOLLOWS: First week after discharge: -Take it easy at home, no strenuous activity. -Do not lift or pull objects over 10-15 pounds, including children, and groceries for four weeks. If puncture site is at wrist do NOT lift more than three pounds for three days. - May walk up stairs. -May shower. -No excessive scrubbing of the affected site (groin). -May ride in car. -May resume sexual intercourse after 1-2 weeks. -No MRI for 12 days. -May drive in 4-7 days. -If puncture site is at the wrist do not manipulate the wrist for 24 hours, and no soaking wrist for three days. Second Week: -May take a bath -May start walking 3 times a week for 15-20 minutes at a leisurely pace. You should be able to carry on a conversation comfortably without feeling winded. -No strenuous activity as in jogging, running, weight lifting, stair steppers, etc. until the agency sales representative approves these activities. Check with the agency sales representative on your first follow-up visit. CALL YOUR PHYSICIAN at [phone]: -If bleeding should occur from the catheter insertion site- apply pressure to the site then immediately call us. -Report any fever, redness, drainage, increased swelling, or firmness at the catheter insertion site. Some bruising or slight swelling may be present at the time of discharge. -Should arm or leg become cold, numb, white, or blue, contact the agency sales representative immediately. -IF you should experience episodes of angina, e.g. chest discomfort, heaviness, tightness, pressure burning with or without radiation to the neck, jaw, arms or back- use 1 Nitrostat tablet under your tongue every 5-10 minutes and up to three tablets. IF NO RELIEF, CALL 911 or GO TO THE NEAREST EMERGENCY ROOM. -Please notify our office if you have recurrent angina. -[Cardiac Rehab Education Provided. Participation in the Cardiopulmonary Rehabilitation program is recommended. Please call Central Scheduling at [phone] to schedule your appointment.] The attending agency sales representative or [facility] nurse clinician should provide you with specific instructions regarding activity, diet, medications, and further follow up for you. Follow the medication instructions provided on your discharge. If the dosages and instructions on this sheet differ from the dosage and instructions on the bottle, follow the instructions on the bottle. [facility] is not responsible for incorrect prescription information provided by the patient during their visit. Do not stop your medications without consulting your health care provider. Please take the list with you to your next doctor's appointment.[facility] Work Phone: Hospital Discharge instructions Additional Instructions DISCHARGE INSTRUCTIONS FOR UPPER ENDOSCOPY WHAT TO EXPECT: - You may feel full, gassy or cramping after your procedure. In some cases, this may be from a few hours to a day. Walking may help relieve the discomfort. - Your throat may feel sore today from the scope that the doctor passed through your throat to visualize your stomach. Take a throat lozenge or suck on ice to ease the discomfort. - You may notice some streaks of blood in your sputum if the doctor has taken a biopsy. - You should begin to recover from anesthesia within 1 hour of the procedure, however may feel groggy for the next 24 hours. DO's AND DON'Ts: - Call your doctor right away if you have a hard abdomen, severe pain, vomiting or if you cough up large amounts of blood. - Call your doctor if you develop any rashes, hives or difficulty breathing. - If you take 81 mg aspirin for your heart it is safe to resume this medication. - If you take other blood thinner medications your doctor will instruct you when these can safely be resumed. - Do NOT drive for 24 hours. - Do NOT operate machinery such as power tools, [place] mowers, snow blowers, sewing machines, etc. for 24 hours. - Avoid alcoholic beverages and drugs for allergies, nerves, or sleep. - Do NOT stay alone. Do NOT leave your child unattended. - Do NOT make important personal or business decisions or sign any legal documents. - Eat solid foods and drink liquids in smaller amounts than usual until normal appetite returns. If you should experience an upset stomach, liquids high in sugar content (soda, Jasbir-Aid, non-acid juices) are recommended. - Do NOT smoke. - Do take it easy today. You need not stay in bed, but avoid strenuous activities such as jogging or working out. FOLLOW UP & RECOMMENDATIONS: -The office will notify you of your pathology results and if any further follow- up is needed. Otherwise she should follow-up with Dr. Gallo's office yearly to make sure your heartburn remains under good control. -Notify the doctor if you have any problems. -Follow up with PCP. -Office number [phone].[facility] Work Phone: Reason for referral (narrative)* Consultation (Routine) - Authorized Specialty Diagnoses / Procedures Referred By Contac t Referred To Contact Cardiology Diagnoses ASCVD (arteriosclerotic cardiovascular disease) Primary hypertension Pacemaker SSS (sick sinus syndrome) ([facility]) Procedures Follow Up In Cardiology Koby Mcclain MD [address] [facility] [address] [address] Koby Mcclain MD [address] [facility] [address], [address] [address] Referral ID Status Reason Start Date Expiration Date V isits Requested Visits Authorized [id number] Authorized 10/02/2023 10/01/2024 1 1 [facility] Work Phone: [facility] [facility] for referral (narrative)* Outpatient Procedure (Routine) - Closed Specialty Diagnoses / Procedures Referred By Contac t Referred To Contact [facility] Diagnoses Duodenal adenoma Procedures EGD - THERAPEUTIC, EUS, OR TUBE INTERVENTIONS EDG US EXAM SURGICAL ALTER STOM DUODENUM/JEJUNUM Carlos To MD [address] [place] [address] [place] [address] [place] [address] Referral ID Status Reason Start Date Expiration Date V isits Requested Visits Authorized [id number] Closed Auto-Generate d Referral 09/04/2023 09/04/2024 1 1 [facility] for referral (narrative)* Outpatient Procedure (Routine) - Closed Specialty Diagnoses / Procedures Referred By Contac t Referred To Contact [facility] Diagnoses Adenomatous duodenal polyp Procedures EGD - THERAPEUTIC, EUS, OR TUBE INTERVENTIONS EGD TRANSORAL ENDOSCOPIC MUCOSAL RESECTION Devaughn Farias MD [address] [address] [place] [id number] [place] [address] Referral ID Status Reason Start Date Expiration Date V isits Requested Visits Authorized [id number] Closed Auto-Generate d Referral 10/14/2023 10/14/2024 1 1 [facility] for visit Narrative* Outpatient Procedure (Routine) - Closed Specialty Diagnoses / Procedures Referred By Amanda allison Referred To Contact [facility] Diagnoses Duodenal adenoma Procedures EGD - THERAPEUTIC, EUS, OR TUBE INTERVENTIONS EDG US EXAM SURGICAL ALTER STOM DUODENUM/JEJUNUM Carlos To MD [address] [place] [address] [place] [id number] Referral ID Status Reason Start Date Expiration Date V isits Requested Visits Authorized [id number] Closed Auto-Generate d Referral 09/04/2023 09/04/2024 1 1 [facility] for visit Narrative* Outpatient Procedure (Routine) - Closed Specialty Diagnoses / Procedures Referred By Amanda allison Referred To Contact [facility] Diagnoses Adenomatous duodenal polyp Procedures EGD - THERAPEUTIC, EUS, OR TUBE INTERVENTIONS EGD TRANSORAL ENDOSCOPIC MUCOSAL RESECTION Devaughn Farias MD [address] [address] Referral ID Status Reason Start Date Expiration Date V isits Requested Visits Authorized [id number] Closed Auto-Generate d Referral 10/14/2023 10/14/2024 1 1 [facility] Family History No Family History Records FoundUnknown Family Member Name Dates Details FH: CABG (coronary artery by pass surgery): Sister(V17.3, Z82.49) Status:Active Family history of acute myoc ardial infarction: Mother, Father(V17.3, Z82.49) Status:Active Unknown Family Member Name Dates Details Family history of acute myoc ardial infarction: Mother, Father(V17.3, Z82.49) Status:Active FH: CABG (coronary artery by pass surgery): Sister(V17.3, Z82.49) Status:Active Family history of pancreatic cancer: Brother(V16.0, Z80.0) Status:Active Unknown Family Member Name Dates Details Family history of pancreatic cancer: Brother(V16.0, Z80.0) Status:Active FH: CABG (coronary artery by pass surgery): Sister(V17.3, Z82.49) Status:Active Family history of acute myoc ardial infarction: Mother, Father(V17.3, Z82.49) Status:Active Unknown Family Member Name Dates Details Family history of acute myoc ardial infarction: Mother, Father(V17.3, Z82.49) Status:Active FH: CABG (coronary artery by pass surgery): Sister(V17.3, Z82.49) Status:Active Family history of pancreatic cancer: Brother(V16.0, Z80.0) Status:Active Relationship Condition Age at Onset Recorded Date/T noel father Myocardial infarction Unknown Not Specified Myocardial infarction Unknown sister Coronary artery dise ase involving coronary bypass graft Unknown brother Malignant neoplasm Unknown Unknown Family Member Name Dates Details Family history of acute myoc ardial infarction: Mother, Father(V17.3, Z82.49) Status:Active FH: CABG (coronary artery by pass surgery): Sister(V17.3, Z82.49) Status:Active Family history of pancreatic cancer: Brother(V16.0, Z80.0) Status:Active Unknown Family Member Name Dates Details Family history of pancreatic cancer: Brother(V16.0, Z80.0) Status:Active FH: CABG (coronary artery by pass surgery): Sister(V17.3, Z82.49) Status:Active Family history of acute myoc ardial infarction: Mother, Father(V17.3, Z82.49) Status:Active Unknown Family Member Name Dates Details Family history of pancreatic cancer: Brother(V16.0, Z80.0) Status:Active FH: CABG (coronary artery by pass surgery): Sister(V17.3, Z82.49) Status:Active Family history of acute myoc ardial infarction: Mother, Father(V17.3, Z82.49) Status:Active Unknown Family Member Name Dates Details Family history of acute myoc ardial infarction: Mother, Father(V17.3, Z82.49) Status:Active FH: CABG (coronary artery by pass surgery): Sister(V17.3, Z82.49) Status:Active Family history of pancreatic cancer: Brother(V16.0, Z80.0) Status:Active Unknown Family Member Name Dates Details Family history of acute myoc ardial infarction: Mother, Father(V17.3, Z82.49) Status:Active FH: CABG (coronary artery by pass surgery): Sister(V17.3, Z82.49) Status:Active Family history of pancreatic cancer: Brother(V16.0, Z80.0) Status:Active Unknown Family Member Name Dates Details Family history of acute myoc ardial infarction: Mother, Father(V17.3, Z82.49) Status:Active FH: CABG (coronary artery by pass surgery): Sister(V17.3, Z82.49) Status:Active Family history of pancreatic cancer: Brother(V16.0, Z80.0) Status:Active Unknown Family Member Name Dates Details Family history of acute myoc ardial infarction: Mother, Father(V17.3, Z82.49) Status:Active FH: CABG (coronary artery by pass surgery): Sister(V17.3, Z82.49) Status:Active Family history of pancreatic cancer: Brother(V16.0, Z80.0) Status:Active Unknown Family Member Name Dates Details Family history of acute myoc ardial infarction: Mother, Father(V17.3, Z82.49) Status:Active FH: CABG (coronary artery by pass surgery): Sister(V17.3, Z82.49) Status:Active Family history of pancreatic cancer: Brother(V16.0, Z80.0) Status:Active Relationship Condition Age at Onset Recorded Date/T noel father Myocardial infarction Unknown Not Specified Myocardial infarction Unknown sister Coronary artery dise ase involving coronary bypass graft Unknown brother Malignant neoplasm Unknown brother Unknown Malignant neoplasm Unknown father Heart disease Unknown Unknown Not Specified Heart disease Unknown Chief Complaint and Reason for Visit Chief Complaint asystole Chief Complaint asystole Angina, Dizziness, SSS, Hypertension Angina, Dizziness, SSS, Hypertension Chief Complaint Angina, Dizziness, S SS, Hypertension Angina, Dizziness, SSS, Hypertension asystole Abnormal Stress, Dyspnea Chief Complaint Angina, Dizziness, S SS, Hypertension Angina, Dizziness, SSS, Hypertension asystole Abnormal Stress, Dyspnea Abnormal Stress, Dyspnea Chief Complaint asystole gerd Chief Complaint gerd asystole Chief Complaint Consult Wt Weight asystole Advance Directives No Advanced Directives Records Found Advance Directive Response Recorded Date/ Time Advance Directives No September 05, 2017 11:36am Advance Directive Response Recorded Date/ Time Advance Directives No September 05, 2017 10:36am Summary Purpose Chief Complaint ALEXANDRIA DODSON is being seen for an annual follow-up of.ALEXANDRIA DODSON is being seen for CATH 12/04/2022. Reason for Referral Specialty Diagnoses / Procedures Referred By Contac t Referred To Contact [facility] Diagnoses Abnormal findings on diagnostic imaging of liver and biliary tract Procedures MRI 3D POST PROCESSING 3D RENDERING W/INTERP&POSTPROC DIFF WORK STATION Carson Monroe MD [address] [place] [address] [facility] [place] [id number] Referral ID Status Reason Start Date Expiration Date Visits Requested Visits Authorized [id number] New Request Auto-Generat ed Referral 04/30/2024 05/30/2025 1 1 Specialty Diagnoses / Procedures Referred By Contac t Referred To Contact [facility] Diagnoses Abnormal findings on diagnostic imaging of liver and biliary tract Procedures MRI PANC/TAMARA WO/W IVCON MRI ABDOMEN W/O & W/CONTRAST MATERIAL Carson Monroe MD [address] [place] [address] [facility] [place] [facility] Referral ID Status Reason Start Date Expiration Date Visits Requested Visits Authorized [id number] New Request Auto-Generat ed Referral 04/30/2024 05/30/2025 1 1 Additional Source Comments Care Teams (unrecognized sec tion and content) Team Status: Inactive Member Role Status Dates Cherie Ardon DO Primary Care Provider Active Koby Mcclain MD Attending Provider Active Team Status: Active Member Role Status Dates Cherie Ardon DO Primary Care Provider Active Team Status: Inactive Member Role Status Dates Koby Mcclain MD Attending Provider Active Eloise Vance DO Primary Care Provider Active Team Status: Active Member Role Status Florencio Vance DO Primary Care Provider Active Team Status: Inactive Member Role Status Dates Eloise Vance DO Primary Care Provider Active Koby Mcclain MD Attending Provider Active Team Status: Inactive Member Role Status Dates Eloise Vance DO Primary Care Provider Active Jaqueline Ponce DO Attending Provider Active Team Status: Active Member Role Status Dates Eloise Vance DO Primary Care Provider Active Jaqueline Pocne , Attending Provider Active Team Status: Inactive Member Role Status Dates Eloise Vance DO Primary Care Provider Active Jules Gallo MD Attending Provider Active [employer] Relationship Specialty Start Date End Date Jules Gallo [address] [place] [id number] Referring Gastroenterology 08/19/23 [employer] Relationship Specialty Start Date End Date Eloise Vance DO PCP - General 12/02/22 Team Status: Inactive Member Role Status Dates Jules Gallo MD Attending Provider Active S tart: October 15, 2023 End: October 15, 2023 Team Status: Inactive Member Role Status Dates Eloise Vance DO Primary Care Provider Active Start: November 12, 2023 End: November 12, 2023 Koby Mcclain MD Attending Provider Active Start: November 12, 2023 End: November 12, 2023 [employer] Relationship Specialty Start Date End Date Jules Gallo MD [address] [place] [id number] Referring Gastroenterology 08/19/23 [employer] Relationship Specialty Start Date End Date Jules Gallo MD [address] [place] [id number] Referring Gastroenterology 08/19/23 [employer] Relationship Specialty Start Date End Date Jules Gallo MD [address] [place] [id number] Referring Gastroenterology 08/19/23 [employer] Relationship Specialty Start Date End Date Jules Gallo MD [address] [place] [id number] Referring Gastroenterology 08/19/23 [employer] Relationship Specialty Start Date End Date Jules Gallo MD [address] [facility] [address] [place] [address] Referring Gastroenterology 08/19/23 [employer] Relationship Specialty Start Date End Date Jules Gallo MD [address] [facility] [address] [place] [address] Referring Gastroenterology 08/19/23 Goals (unrecognized section and content) Goals may be documented in a n alternate sectionGoals may be documented in an alternate sectionNo InformationNo InformationNo InformationGoals may be documented in an alternate section (unrecognized sect ion and content) No Status Records FoundNo Status Records FoundNo Status Records FoundNo Status Records FoundNo Status Records FoundNo Status Records FoundNo Status Records FoundNo Status Records Found INFORMATION SOURCE (unrecogn ized section and content) DATE CREATED AUTHOR 09/29/2022 [facility] DATE CREATED AUTHOR AUTHOR'S ORGANIZ ATION 03/16/2023 [employer] DATE CREATED AUTHOR AUTHOR'S ORGANIZ ATION 04/30/2023 [facility] DATE CREATED AUTHOR AUTHOR'S ORGANIZ ATION 05/18/2023 [facility] DATE CREATED AUTHOR AUTHOR'S ORGANIZ ATION 02/04/2024 [facility] DATE CREATED AUTHOR AUTHOR'S ORGANIZ ATION 02/26/2024 [facility] DATE CREATED AUTHOR AUTHOR'S ORGANIZ ATION 04/17/[address] [facility] DATE CREATED AUTHOR AUTHOR'S ORGANIZ ATION 04/30/2024 [facility] REASON FOR VISIT (unrecogniz ed section and content) Reason Comments Follow-up 6m Reason Comments Radio Gen [id number] Reason Comments Consult Source Comments (unrecognize d section and content) In the event this informatio n is protected by the Federal Confidentiality of Alcohol and Drug Abuse Patient Records regulations: The Federal rules restrict any use of the information to criminally investigate or prosecute any alcohol or drug abuse patient.[facility] the event this information is protected by the Federal Confidentiality of Alcohol and Drug Abuse Patient Records regulations: The Federal rules restrict any use of the information to criminally investigate or prosecute any alcohol or drug abuse patient.[facility] the event this information is protected by the Federal Confidentiality of Alcohol and Drug Abuse Patient Records regulations: The Federal rules restrict any use of the information to criminally investigate or prosecute any alcohol or drug abuse patient.[facility] the event this information is protected by the Federal Confidentiality of Alcohol and Drug Abuse Patient Records regulations: The Federal rules restrict any use of the information to criminally investigate or prosecute any alcohol or drug abuse patient.[facility] the event this information is protected by the Federal Confidentiality of Alcohol and Drug Abuse Patient Records regulations: The Federal rules restrict any use of the information to criminally investigate or prosecute any alcohol or drug abuse patient.[facility] the event this information is protected by the Federal Confidentiality of Alcohol and Drug Abuse Patient Records regulations: The Federal rules restrict any use of the information to criminally investigate or prosecute any alcohol or drug abuse patient.[facility] Hospital[facility] the event this information is protected by the Federal Confidentiality of Alcohol and Drug Abuse Patient Records regulations: The Federal rules restrict any use of the information to criminally investigate or prosecute any alcohol or drug abuse patient.[facility] FOR RECORDS PERTAINING TO PATIENTS WHO ARE OR HAVE BEEN ENROLLED IN A CHEMICAL DEPENDENCY/SUBSTANCEABUSE PROGRAM, SOME INFORMATION MAY BE OMITTED. This clinical summary was aggregated from multiple sources. Caution should be exercised in using it in the provision of clinical care. This summary normalizes information from multiple sources, and as a consequence, information in this document may materially change the coding, format and clinical context of patient data. In addition, data may be omitted in some cases. CLINICAL DECISIONS SHOULD BE BASED ON THE PRIMARY CLINICAL RECORDS. [employer] [facility]. provides no warranty or guarantee of the accuracy or completeness of information in this document.
--- NOTE | 2024-05-11 19:54 | ED_ITS ---
HPI HPI - Back Pain/Injury General Chief Complaint: Back Pain/Injury Stated Complaint: BACK INJURY Time Seen by Provider: 05/11/24 19:38 Source: patient Mode of arrival: Wheelchair Limitations: no limitations History of Present Illness HPI Narrative: This 83-year old male presents for evaluation of right low back pain with spasms in his back. The symptoms have been present for the past month after he was moving some boxes and things in his garage and tweaked his back. He states it was tolerable until earlier today when he tried to pull a small trailer approximately 6 feet to move it because he wanted to haul some brush out of his yard. He did not fall. He has no weakness numbness or tingling. He has no chest pain or shortness of breath. He has not had any loss of bowel or bladder control. He took 1 Tylenol earlier today without significant improvement. Related Data Home Medications ?Medication ?Instructions ?Recorded ?Confirmed citalopram 20 mg tablet 20 mg PO DAILY 05/11/24 05/11/24 clopidogrel 75 mg tablet 75 mg PO DAILY 05/11/24 05/11/24 famotidine 40 mg tablet 40 mg PO DAILY 05/11/24 05/11/24 nitroglycerin 0.4 mg sublingual 0.4 mg sublingual Q5M PRN chest 05/11/24 05/11/24 tablet pain omeprazole 20 mg capsule,delayed 20 mg PO DAILY 05/11/24 05/11/24 release ranolazine 1,000 mg 1,000 mg PO Q12H 05/11/24 05/11/24 tablet,extended release,12 hr rosuvastatin 40 mg tablet 40 mg PO DAILY 05/11/24 05/11/24 Allergies Allergy/AdvReac Type Severity Reaction Status Date / Time erythromycin base AdvReac Nausea Verified 05/11/24 19:45 Opioid HPI Opioid Management Most Recent Opioid Data: Last Pain Scale 10 05/11/24 20:07 Review of Systems ROS Status of ROS 10 or more systems reviewed and unremark able except as noted in history and below Exam Narrative Exam Narrative: Vital signs and Nursing Notes reviewed: Vital signs reviewed, the patient is afebrile with a normal pulse, blood pressure is elevated at 180/82, he is not hypoxic with pulse ox of 98% on room air General: Awake, alert, oriented, well-appearing elderly male looking younger than his stated age, he winces intermittently due to spasms in his right low back otherwise comfortable appearing HEENT: Normocephalic atraumatic, mucous membranes are moist and pink, eyes are clear, normal conjunctiva, vision is grossly intact Neck: Supple, no midline bony vertebral tenderness Chest: Lungs are clear to auscultation with good air entry, there is no wheezing rhonchi or rales appreciated no accessory muscle use, patient is speaking in complete sentences-no chest wall tenderness to palpation CVS: Regular rate and rhythm S1-S2, no murmurs rubs or gallops, pulses are brisk and equal bilaterally ABD: Soft, nondistended, nontender, no rebound guarding or rigidity, bowel sounds are normal, no pulsatile masses appreciated Extremities: Moving all extremities, no lower extremity tenderness or swelling noted, negative Homans' sign, pulses are brisk and equal bilaterally Musculoskeletal:: Tenderness in the right lower lumbar region, paravertebral muscles are in spasm. There is no midline bony vertebral tenderness or step- off, patient is wearing a brace to help support his back, there is no skin rash noted Skin: Normal in appearance without rash,pallor, petechiae or purpura Neuro: No focal deficits, management professionals strength is intact, there is no saddle anesthesia, pushing pills of the lower extremities are normal. Straight leg raising test was not performed due to the discomfort in the patient's back with muscle spasms Constitutional Vital Signs, click to edit/add: Last Vital Signs Temp 97.5 F L 05/11/24 19:40 Pulse 68 05/11/24 19:40 Resp 16 05/11/24 19:40 BP 180/82 H 05/11/24 19:40 Pulse Ox 98 05/11/24 19:40 O2 Del Method Room Air 05/11/24 19:40 Course Vital Signs Vital signs: Vital Signs Temperature 97.5 F L 05/11/24 19:40 Pulse Rate 68 05/11/24 19:40 Respiratory Rate 16 05/11/24 19:40 Blood Pressure 180/82 H 05/11/24 19:40 Pulse Oximetry 98 05/11/24 19:40 Oxygen Delivery Method Room Air 05/11/24 19:40 Temperature 97.5 F L 05/11/24 19:40 Pulse Rate 68 05/11/24 19:40 Respiratory Rate 16 05/11/24 19:40 Blood Pressure 180/82 H 05/11/24 19:40 Pulse Oximetry 98 05/11/24 19:40 Oxygen Delivery Method Room Air 05/11/24 19:40 MDM - Back Pain/Injury MDM Narrative Medical decision making narrative: This 83-year-old male presents for evaluation of right low back pain with muscle spasms. The pain has been present for about a month but increased today after he tried to move a trailer approximately 6 feet to put brush on. He denies any fall. He has muscle spasms in the low back and generalized low back pain on the right. He is wearing a binder for comfort. He took a Tylenol earlier in the day. He is not having any weakness or numbness. He has not have any bowel or bladder dysfunction or constipation. He was medicated emergency department with IM Toradol, Zofran, tramadol and a Robaxin. This provided him some relief but he was still having muscle spasms and he was given 2 mg of oral Valium. On reevaluation he states he is still having some degree of muscle spasms but his pain has resolved. He was ready to try to ambulate with assistance and was able to accomplish that without difficulty. He will be discharged home with prescription for Zofran, tramadol and Parafon forte. I encouraged him to use warm compresses, gentle stretching, moist heat and refrain from any activity which would further exacerbate his back pain. He is otherwise stable for discharge. Discharge Plan Discharge Stand Alone Forms: Portal Instructions Chief Complaint: Back Pain/Injury Clinical Impression: Strain of lumbar region, Spasm of muscle of lower back Patient Disposition: Home, Self-Care Time of Disposition Decision: 21:17 Condition: Good Prescriptions / Home Meds: No Action citalopram 20 mg tablet 20 mg PO DAILY clopidogrel 75 mg tablet 75 mg PO DAILY famotidine 40 mg tablet 40 mg PO DAILY nitroglycerin 0.4 mg tablet, sublingual 0.4 mg sublingual Q5M PRN (Reason: chest pain) omeprazole 20 mg capsule,delayed release(DR/EC) 20 mg PO DAILY ranolazine 1,000 mg tablet extended release 12 hr 1,000 mg PO Q12H rosuvastatin 40 mg tablet 40 mg PO DAILY Print Language: [place] Instructions: Low Back Strain (ED), Muscle Spasm (ED), Back Pain (ED), Warm Compress or Soak (ED) Referrals: ELOISE FISHMAN [Primary Care Provider] - 1 week
[2024-05-11] MEDS: TRAMADOL HCL 50 MG TABLET PO ×2 (20:07→21:27)
[2024-05-11] MEDS: ONDANSETRON 4 MG RAPDIS TABLET SL (20:07)
[2024-05-11] MEDS: METHOCARBAMOL 500 MG TABLET PO (20:07)
[2024-05-11] MEDS: KETOROLAC TROMETHAMINE 60 MG/2 ML VIAL 30 MG IM (20:07)
[2024-05-11] MEDS: DIAZEPAM 2 MG TABLET PO (20:43)
== END 2024-05-11 21:35 | disposition home or self-care (01) ==
PROVIDERS: Emergency Provider Emergency Medicine; Family Provider Internal Medicine; PCP Internal Medicine
DX: S39.012A Strain of muscle, fascia and tendon of lower back, initial encounter (principal); M62.830 Muscle spasm of back; X50.9XXA Other and unspecified overexertion or strenuous movements or postures, initial encounter
CPT/HCPCS: 96372; 99285; J1885; Q0162